=== PATIENT | female | born 1940 | race Caucasian/White ===

== ENCOUNTER 2019-11-14 19:13 | Emergency (ER) | payer OTHER ==
--- OUTSIDE RECORDS SUMMARY | 2019-11-14 21:26 | XMS REPORT | Clinical Summary ---
:1940 Author Organization [facility] Address [address] [place] [address] Care Team Providers Name Role Phone Merrill Tellez MD Primary Care Provider Allergies Active Allergy Reactions Severity Noted Date Comments Pneumococcal 23-Grazyna Ps Vaccine 01/22/2018 Severe local reaction. Sulfa (Sulfonamide Antibiotics) 6 Medications Medication Sig Dispensed Refills Start End Status Date Date aspirin 325 MG TAKE 1 TABLET 0 A ctive tablet BY MOUTH EVERY DAY WITH FOOD estradiol (ESTRACE) Insert 1 g into 42.5 g 11 05/16 Active 0.01 % (0.1 mg/gram) the vagina 0 021 vaginal every other creamIndications: day. Acute cystitis without hematuria fluticasone-umeclidi Inhale 1 puff 0 Active n-vilanter every morning. 100-62.5-25 mcg blister with device conjugated estrogens Insert 0.5 g 42.5 g 5 Active (PREMARIN) 0.625 into the vagina 0 mg/gram vaginal nightly as creamIndications: needed Overactive bladder (irritation). Premarin 0.625 mg/gram vaginal cream furosemide (LASIX) Take 1 tablet 90 tablet 1 Active 40 mg (40 mg total) 0 tabletIndications: by mouth daily. Benign essential HTN potassium chloride Take 1 tablet 90 tablet 1 Active (KLOR-CON) 10 MEQ CR (10 mEq total) 0 020 tabletIndications: by mouth daily Benign essential HTN for 90 days. sucralfate TAKE ONE (1) 360 tablet 1 Activ e (CARAFATE) 1 gram TABLET(S) BY 0 tabletIndications: MOUTH FOUR Gastroesophageal TIMES A DAY. reflux disease with esophagitis Myrbetriq 50 mg Take 1 tablet 90 tablet 1 Active tablet extended (50 mg total) 0 release 24 by mouth daily. hrIndications: Overactive bladder tiZANidine TAKE ONE (1) 100 tablet 1 Activ e (ZANAFLEX) 2 MG TABLET(S) BY 0 tabletIndications: MOUTH TWICE A Chronic right DAY NEEDED shoulder pain, Pain SHOULDER PAIN. in both lower extremities venlafaxine 225 MG Take 1 tablet 90 each 1 Active tablet extended (225 mg total) 0 release 24hr 24 hr by mouth daily. tabletIndications: Adjustment reaction, depressive, brief metoprolol tartrate TAKE ONE (1) 180 tablet 1 Active (LOPRESSOR) 25 mg TABLET(S) BY 0 tabletIndications: MOUTH TWICE A Benign essential HTN DAY. rosuvastatin TAKE ONE (1) 30 tablet 1 Acti ve (CRESTOR) 10 mg TABLET(S) BY 0 tabletIndications: MOUTH ONCE A Multiple-type DAY. hyperlipidemia levothyroxine TAKE ONE (1) 60 tablet 0 Act al (SYNTHROID) 50 mcg TABLET(S) BY 0 tabletIndications: MOUTH EVERY Acquired MORNING. hypothyroidism pantoprazole TAKE ONE (1) 60 tablet 5 Acti ve (PROTONIX) 40 MG EC TABLET(S) BY 0 tabletIndications: MOUTH ONCE A Gastroesophageal DAY. reflux disease with esophagitis conjugated estrogens Insert into the 42.5 g 11 07/07 Discontinued (PREMARIN) vaginal vagina daily. 6 020 (Reorder) cream Premarin 0.625 mg/gram vaginal cream tiotropium bromide Inhale. 0 D iscontinued (SPIRIVA RESPIMAT) 020 ( Therapy 2.5 mcg/actuation co mpleted) mist metoprolol tartrate TAKE ONE (1) 180 tablet 1 Discontinued (LOPRESSOR) 25 mg TABLET(S) BY 7 019 (Reorder) tabletIndications: MOUTH TWICE A Benign essential HTN DAY. rosuvastatin TAKE ONE (1) 30 tablet 0 09/20/201 01/22/2 Disc ontinued (CRESTOR) 10 MG TABLET(S) BY 7 020 ( Med List tablet MOUTH ONCE A Cleanup ) DAY. sucralfate TAKE ONE (1) 360 tablet 1 Disco ntinued (CARAFATE) 1 gram TABLET(S) BY 7 020 (Med List tablet MOUTH FOUR Cleanup) TIMES A DAY. fluticasone-vilanter Inhale 1 28 each 5 Discontinued ol (BREO ELLIPTA) inhalations 7 020 (Therapy 100-25 mcg/dose once daily. co mpleted) blister with device powder for inhalationIndication s: Bronchitis, mucopurulent recurrent (HCC) MYRBETRIQ 50 mg TAKE ONE (1) 30 tablet 5 D iscontinued tablet extended TABLET(S) BY 8 019 ( Reorder) release 24 MOUTH ONCE A hrIndications: DAY. Overactive bladder umeclidinium Inhale. 0 Discont inued (INCRUSE ELLIPTA) 020 (T herapy 62.5 mcg/actuation c ompleted) blister with device KLOR-CON 10 10 mEq TAKE ONE (1) 30 tablet 5 Discontinued CR tablet TABLET(S) BY 8 019 (Reorde r) MOUTH ONCE A DAY. metoprolol tartrate TAKE ONE (1) 60 tablet 3 Discontinued (LOPRESSOR) 25 mg TABLET(S) BY 9 019 (Med List tablet MOUTH TWICE A Cleanu p) DAY. venlafaxine 225 MG TAKE ONE (1) 30 each 5 Discontinued tablet extended TABLET(S) BY 9 020 release 24hr 24 hr MOUTH ONCE A tabletIndications: DAY. Adjustment reaction, depressive, brief pantoprazole TAKE ONE (1) 30 tablet 3 Disc ontinued (PROTONIX) 40 MG EC TABLET(S) BY 9 019 (Reorder) tablet MOUTH ONCE A DAY. levothyroxine TAKE ONE (1) 30 tablet 3 Dis continued (SYNTHROID, LEVOXYL) TABLET(S) BY 9 019 (Reorder) 50 mcg MOUTH EVERY tabletIndications: MORNING. Acquired hypothyroidism furosemide (LASIX) TAKE ONE (1) 30 tablet 3 Discontinued 40 mg tablet TABLET(S) BY 9 019 (Reo rder) MOUTH ONCE A DAY. metoprolol tartrate TAKE ONE (1) 60 tablet 3 Discontinued (LOPRESSOR) 25 mg TABLET(S) BY 019 (Reorder) tablet MOUTH TWICE A DAY. triamcinolone Apply topically 30 g 3 (KENALOG) 0.1 % 2 (two) times a ointment day. Prn itch or rash. potassium chloride TAKE ONE (1) 30 tablet 3 Discontinued (KLOR-CON) 10 MEQ CR TABLET(S) BY tablet MOUTH ONCE A DAY. venlafaxine 225 MG TAKE ONE (1) 30 each 3 Discontinued tablet extended TABLET(S) BY 019 ( Med List release 24hr 24 hr MOUTH ONCE A Cleanup) tabletIndications: DAY. Adjustment reaction, depressive, brief tiZANidine TAKE ONE (1) 50 tablet 5 Discon tinued (ZANAFLEX) 2 MG TABLET(S) BY ( Reorder) tabletIndications: MOUTH TWICE A Chronic right DAY NEEDED shoulder pain, Pain SHOULDER PAIN. in both lower extremities rosuvastatin TAKE ONE (1) 30 tablet 3 Disc ontinued (CRESTOR) 10 MG TABLET(S) BY 020 tabletIndications: MOUTH ONCE A Multiple-type DAY. hyperlipidemia rosuvastatin TAKE ONE (1) 30 tablet 2 Disc ontinued (CRESTOR) 10 MG TABLET(S) BY 019 ( Med List tabletIndications: MOUTH ONCE A Cleanup) Multiple-type DAY. hyperlipidemia pantoprazole TAKE 1 TABLET 30 tablet 0 Dis continued (PROTONIX) 40 MG EC BY MOUTH EVERY (Duplicate tablet DAY order) levothyroxine TAKE 1 TABLET 30 tablet 0 Di scontinued (SYNTHROID, LEVOXYL) IN THE MORNING 9 020 (Med List 50 mcg Cleanup) tabletIndications: Acquired hypothyroidism metoprolol tartrate TAKE 1 TABLET 60 tablet 0 Discontinued (LOPRESSOR) 25 mg BY MOUTH TWICE 9 019 (Med List tablet A DAY Cleanup) furosemide (LASIX) TAKE ONE (1) 90 tablet 2 Discontinued 40 mg tablet TABLET(S) BY 9 020 (Reo rder) MOUTH ONCE A DAY. MYRBETRIQ 50 mg TAKE ONE (1) 90 tablet 1 D iscontinued tablet extended TABLET(S) BY 9 020 release 24 MOUTH ONCE A hrIndications: DAY. Overactive bladder metoprolol tartrate TAKE ONE (1) 180 tablet 1 Discontinued (LOPRESSOR) 25 mg TABLET(S) BY 9 020 (Reorder) tabletIndications: MOUTH TWICE A Benign essential HTN DAY. acetaminophen-codein Take 1 tablet 50 tablet 0 01/17 e (TYLENOL WITH by mouth every 9 019 CODEINE #3) 300-30 4 (four) hours mg per as needed for tabletIndications: moderate pain Orbital fracture, for up to 30 sequela days. sucralfate TAKE ONE (1) 120 tablet 1 Disco ntinued (CARAFATE) 1 gram TABLET(S) BY 9 020 tablet MOUTH FOUR TIMES A DAY. pantoprazole TAKE ONE (1) 30 tablet 1 Disc ontinued (PROTONIX) 40 MG EC TABLET(S) BY 9 019 (Reorder) tablet MOUTH ONCE A DAY. levothyroxine TAKE ONE (1) 30 tablet 1 Dis continued (SYNTHROID, LEVOXYL) TABLET(S) BY 9 019 (Reorder) 50 mcg MOUTH EVERY tabletIndications: MORNING. Acquired hypothyroidism traMADol (ULTRAM) 50 TAKE ONE (1) 30 tablet 2 mg tablet TABLET(S) BY 9 019 MOUTH ONCE A DAY NEEDED FOR MODERATE PAIN OR SEVERE PAIN FOR UP TO 30 DAYS. potassium chloride TAKE ONE (1) 30 tablet 4 Discontinued (KLOR-CON) 10 MEQ CR TABLET(S) BY 9 020 (Med List tablet MOUTH ONCE A Cleanup ) DAY. levothyroxine TAKE ONE (1) 60 tablet 0 Dis continued (SYNTHROID) 50 mcg TABLET(S) BY 9 020 tabletIndications: MOUTH EVERY Acquired MORNING. hypothyroidism pantoprazole TAKE ONE (1) 60 tablet 0 Disc ontinued (PROTONIX) 40 MG EC TABLET(S) BY 9 020 (Reorder) tablet MOUTH ONCE A DAY. cephalexin (KEFLEX) Take 500 mg by 0 09/04 Discontinued 500 MG capsule mouth 4 (four) 020 times a day. metoprolol tartrate TAKE ONE (1) 180 tablet 1 Discontinued (LOPRESSOR) 25 mg TABLET(S) BY 0 020 (Reorder) tabletIndications: MOUTH TWICE A Benign essential HTN DAY. acetaminophen-codein Take 1 tablet 20 tablet 0 06/15 e (TYLENOL WITH by mouth every 0 020 CODEINE #3) 300-30 4 (four) hours mg per as needed for tabletIndications: moderate pain chronic pain for up to 10 days .chronic pain. rosuvastatin TAKE ONE (1) 30 tablet 1 Disc ontinued (CRESTOR) 10 MG TABLET(S) BY 0 020 tabletIndications: MOUTH ONCE A Multiple-type DAY. hyperlipidemia pantoprazole TAKE ONE (1) 60 tablet 0 Disc ontinued (PROTONIX) 40 MG EC TABLET(S) BY 0 020 tablet MOUTH ONCE A DAY. levothyroxine TAKE ONE (1) 60 tablet 0 Dis continued (SYNTHROID) 50 mcg TABLET(S) BY 0 020 tabletIndications: MOUTH EVERY Acquired MORNING. hypothyroidism sucralfate TAKE ONE (1) 120 tablet 1 Disco ntinued (CARAFATE) 1 gram TABLET(S) BY 0 020 (Reorder) tablet MOUTH FOUR TIMES A DAY. venlafaxine 225 MG TAKE ONE (1) 30 each 4 Discontinued tablet extended TABLET(S) BY 0 020 ( Reorder) release 24hr 24 hr MOUTH ONCE A tabletIndications: DAY. Adjustment reaction, depressive, brief rosuvastatin TAKE ONE (1) 30 tablet 0 Disc ontinued (CRESTOR) 10 MG TABLET(S) BY 0 020 tabletIndications: MOUTH ONCE A Multiple-type DAY. hyperlipidemia MYRBETRIQ 50 mg TAKE ONE (1) 30 tablet 0 D iscontinued tablet extended TABLET(S) BY 0 020 release 24 MOUTH ONCE A hrIndications: DAY. Overactive bladder pantoprazole TAKE ONE (1) 60 tablet 0 Disc ontinued (PROTONIX) 40 MG EC TABLET(S) BY 0 020 (Duplicate tablet MOUTH ONCE A order) DAY. levothyroxine TAKE ONE (1) 60 tablet 0 Dis continued (SYNTHROID) 50 mcg TABLET(S) BY 0 020 (Reorder) tabletIndications: MOUTH EVERY Acquired MORNING. hypothyroidism potassium chloride TAKE ONE (1) 30 tablet 3 Discontinued (KLOR-CON) 10 MEQ CR TABLET(S) BY 0 020 (Reorder) tablet MOUTH ONCE A DAY. rosuvastatin TAKE ONE (1) 30 tablet 0 Disc ontinued (CRESTOR) 10 MG TABLET(S) BY 0 020 ( Reorder) tabletIndications: MOUTH ONCE A Multiple-type DAY. hyperlipidemia Myrbetriq 50 mg TAKE ONE (1) 30 tablet 0 D iscontinued tablet extended TABLET(S) BY 0 020 ( Reorder) release 24 MOUTH ONCE A hrIndications: DAY. Overactive bladder pantoprazole Take 1 tablet 180 tablet 1 Di scontinued (PROTONIX) 40 MG EC (40 mg total) 0 020 tabletIndications: by mouth daily. Gastroesophageal reflux disease with esophagitis rosuvastatin Take 1 tablet 90 tablet 0 Dis continued (CRESTOR) 10 MG (10 mg total) 0 020 (Reorder) tabletIndications: by mouth daily. Multiple-type hyperlipidemia levothyroxine Take 1 tablet 90 tablet 1 Di scontinued (SYNTHROID) 50 mcg (50 mcg total) 0 020 tabletIndications: by mouth every Acquired morning for 90 hypothyroidism days. Active Problems Problem Noted Date GERD (gastroesophageal reflux disease) 09/18/2015 Benign essential HTN 09/18/2015 Overactive bladder 09/18/2015 Chest pain 09/18/2015 Shortness of breath 09/18/2015 Gastric catarrh 09/18/2015 Hiatal hernia 09/18/2015 Hypothyroidism 09/18/2015 Memory impairment 09/18/2015 Mild memory disturbance 09/18/2015 Peripheral blood vessel disorder 09/18/2015 Syncope and collapse 09/18/2015 Multiple-type hyperlipidemia 09/18/2015 Urinary tract infection 09/18/2015 Encounters Date Type Specialty Care Team Description 11/14/2019 Telephone Family Medicine Rocio Tellez MD 11/11/2019 Telephone Internal Medicine Rocio Tellez MD 11/11/2019 Travel 10/31/2019 Lab Lab [place], Acute cystitis without hematuria; Rocio Momin MD Hypothyroidism (acquired); Multiple-type h yperlipidemia; Encounter for l rose marie-term (current) use of medications 10/31/2019 Travel 10/21/2019 Refill Family Medicine [place], Acquired hyp othyroidism; Rocio Momin MD Gastroesophage al reflux disease with esophagitis 10/04/2019 Refill Internal Medicine [place], Multiple-t ype Rocio Momin MD hyperlipidemia 09/05/2019 Telephone Consult Internal Medicine [place], Cortes oesophageal reflux disease with esophagitis (Primary Dx); Rocio Momin MD Overactive brittney dder; Multiple-type h yperlipidemia; Chronic right s houlder pain; Pain in both lo wer extremities; Acquired hypoth yroidism; Adjustment reac tion, depressive, brief; Benign essentia l HTN 09/05/2019 Telephone Family Medicine Rocio Tellez MD 09/01/2019 Refill Internal Medicine [place] Multiple-t ype hyperlipidemia; Rocio Momin MD Overactive brittney dder 08/19/2019 Telephone Family Medicine Rocio Tellez MD 08/17/2019 Telephone Family Medicine Rocio Tellez MD 08/09/2019 Refill Family Medicine [place], Acquired hyp othyroidism Rocio Momin MD 08/01/2019 Refill Internal Medicine [place], Adjustment reaction, depressive, brief; Rocio Momin MD Multiple-type hyperlipidemia; Overactive blad ojel 07/06/2019 Refill Family Rocio Mueller MD 06/20/2019 Refill Family Nikki Tellez, Acquired hyp othyroidism Rocio Momin MD 06/18/2019 Orders Only Internal Medicine ProviderPriscilla MD 06/14/2019 Refill Family Rocio Mueller MD 06/07/2019 Refill Internal Medicine [place], Multiple-t ype Rocio Momin MD hyperlipidemia 06/05/2019 Office Visit Internal Medicine [place], Acute cyst itis without hematuria (Primary Dx); Rocio Momin MD Benign essenti al HTN; Hypothyroidism (acquired); Chronic right s houlder pain; Multiple-type h yperlipidemia; Encounter for l rose marie-term (current) use of medications; Screen for colo n cancer 04/17/2019 Refill Family Nikki Tellez, Acquired hyp othyroidism Rocio Momin MD 04/01/2019 Refill Internal Medicine Rocio Tellez MD 03/06/2019 Office Visit Neurology Cole Allison MD Carpal tunnel syndrome of right wrist (Primary Dx); Cervical radicu lopathy; Cervical spinal stenosis; KINSEY (obstructiv e sleep apnea); Memory loss 02/11/2019 Refill Family Rocio Mueller MD 02/10/2019 Refill Family Nikki Tellez Acquired hyp othyroidism Rocio Momin MD 02/04/2019 Procedure visit Neurology Cole Allison MD Cervical ra diculopathy (Primary Dx); Polyneuropathy associated with underlying disease (HCC); Cervical spinal stenosis; Chronic right s houlder pain; Carpal tunnel s yndrome of right wrist; Lumbar radiculo yaz 01/07/2019 Office Visit Neurology [place], Recurrent falls (Primary Dx); Rocio Momin MD Gait instability; Cole Allison MD Polyneuropathy associated with underlying disease (HCC); Cervical spinal stenosis 01/01/2019 Telephone Internal Medicine Rocio Tellez MD 12/18/2018 Office Visit Internal Medicine [place], Open fract ure of nasal bone, sequela (Primary Dx); Rocio Momin MD Overactive brittney dder; Orbital fractur e, sequela (HCC); Recurrent falls ; Gait instabilit y; Benign essentia l HTN 12/18/2018 Telephone Family Medicine Rocio Tellez MD 12/13/2018 Refill Internal Medicine Rocio Tellez MD 12/10/2018 Telephone Family Medicine Rocio Tellez MD 12/10/2018 Telephone Internal Medicine Jessi Montana MD 12/09/2018 Refill Internal Medicine [place], Acquired h ypothyroidism Rocio Momin MD 12/04/2018 Refill Internal Medicine [place], Multiple-t ype Rocio Momin MD hyperlipidemia 11/13/2018 Orders Only Internal Medicine ProviderPriscilla MD after 11/13/2018 Immunizations Name Administration Dates Next Due FLUZONE HIGH-DOSE PF 01/18/2018, 02/16/2016 Influenza, Unspecified 04/28/2019, 02/09/2017 Pneumococcal Conjugate 13-Valent 04/17/2017, 03/14/2016 Pneumococcal Polysaccharide 01/18/2018 Td, Unspecified 11/17/2013 Zoster 02/12/2013 Family History Medical History Relation Name Comments Diabetes Child Seizures Child Thyroid disease Child thyroiditis Cancer Father ENT to lungs, he veronica smoker Dementia Mother late onset; of natural causes/old age Relation Name Status Comments Child Father Mother Social History Tobacco Use Types Packs/Day Years Used Date Former Smoker Quit: 05/15/18 84 Smokeless Tobacco: Never Used Tobacco Cessation: Counseling Given: No Comments: Committed to continued cessati on. Alcohol Use Drinks/Week oz/Week Comments No Social Isolation Answer Date Recorded In a typical week, how many times do you talk on the phone N ot asked with family, friends, or neighbors? How often do you get together with friends or relatives? Not asked How often do you attend taoist or yarsani services? Not as ked Do you belong to any clubs or organizations such as taoist N ot asked groups, unions, fraternal or athletic groups, or school groups? How often do you attend meetings of the clubs or Not asked organizations you belong to? Are you now , , , , never Wid owed 04/25/2018 or living with a partner? Transportation Needs Answer Date Recorded In the past 12 months, has lack of transportation kept you f rom No 04/25/2018 medical appointments or from getting medications? In the past 12 months, has lack of transportation kept you f rom No 04/25/2018 meetings, work, or getting things needed for daily living? Sex Assigned at Date Recorded Not on file Job Start Date Occupation Industry Not on file Not on file Not on file Travel History Travel Start Travel End No recent travel history available. COVID-19 Exposure Response Date Recorded In the last month, have you been in contact with No / Unsure 11/11/2019 9:36 AM CDT someone who was confirmed or suspected to have Coronavirus / COVID-19? 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 Inhaled Oxygen Concentration - - Weight 81.2 kg (179 lb) 09/05/2019 2:13 PM CDT Height 160 cm (5' 3") 09/05/2019 2:13 PM CDT Body Mass Index 31.71 09/05/2019 2:13 PM CDT Plan of Treatment Date Type Specialty Care Team Description 12/05/2019 Office Visit Internal Medicine Amber Tellez MD [id number] [phone] Health Maintenance Due Date Last Done Comments SHINGLES VACCINES (#2) 04/14/2013 02/12/2013 INFLUENZA VACCINE 12/14/2019 04/28/2019, 04/28/2019, 2017, Additional history exists 65+ PNEUMOCOCCAL VACCINE Completed 01/18/2018, 04/17/2017, 03/14/2016 Procedures Procedure Name Priority Date/Time Associated Diagnosis Comme nts URINALYSIS, AUTOMATED Routine 10/31/2019 10:28 Acute cystitis without Results for this WITH MICROSCOPY AM CDT hematuria procedure ar e in the results section. T4, FREE Routine 10/31/2019 10:28 Hypothyroidism Results f or this AM CDT (acquired) procedure are i n the results section. THYROID STIMULATING Routine 10/31/2019 10:28 Hypothyroidism Re sults for this HORMONE AM CDT (acquired) procedure are i n the results section. CBC WITH PLATELET AND Routine 10/31/2019 10:28 Acute cystitis without Results for this DIFFERENTIAL AM CDT hematuria procedure are i n the results section. COMPREHENSIVE Routine 10/31/2019 10:28 Multiple-type Results f or this METABOLIC PANEL AM CDT hyperlipidemia procedure are in the results section. HEMOGLOBIN A1C Routine 10/31/2019 10:28 Encounter for Results for this AM CDT long-term (current) procedur e are in use of medications the resul ts section. LIPID PANEL Routine 10/31/2019 10:28 Multiple-type Results fo r this AM CDT hyperlipidemia procedure are in the results section. URINE CULTURE Routine 10/31/2019 10:28 Acute cystitis without Results for this AM CDT hematuria procedure are i n the results section. CONSULT GYNECOLOGY Routine 06/18/2019 MRI CERVICAL SPINE WO Routine 01/17/2019 2:44 Recurrent falls Results for this CONTRAST PM CDT Cervical spinal procedure ar e in stenosis the results section. IP CONSULT TO Routine 11/13/2018 PULMONOLOGY after 11/13/2018 Results Urinalysis, automated with microscopy (10/31/2019 10:28 AM CDT) Color, UA YELLOW YELLOW [facility] [place] Appearance CLEAR CLEAR [facility] [place] Specific gravity, 1.019 1.001 - 1.035 [facility] urine [place] pH, urine < OR = 5.0 5.0 - 8.0 [facility] [place] Glucose, urine NEGATIVE NEGATIVE [facility] [place] Bilirubin, UA NEGATIVE NEGATIVE [facility] [place] Ketones, UA NEGATIVE NEGATIVE [facility] [place] Occult blood, urine NEGATIVE NEGATIVE [facility] [place] Protein, UA NEGATIVE NEGATIVE [facility] [place] Nitrite, UA NEGATIVE NEGATIVE [facility] [place] Leukocyte esterase, TRACE (A) NEGATIVE [facility] UA [place] WBC, UA 0-5 < OR = 5 /HPF [facility] [place] RBC, UA NONE SEEN < OR = 2 /HPF [facility] [place] Squamous epithelial NONE SEEN < OR = 5 /HPF [facility] cells, UA [place] Bacteria, UA NONE SEEN NONE SEEN /HPF [facility] [place] Hyaline casts, UA NONE SEEN NONE SEEN /LPF [facility] [place] Specimen Urine Narrative Performed At FASTING: UNKNOWN [facility] Comment Performing Organization Information: Site ID: [id number] Name: Basilia Guzman Address: [address] [place] [phone] Director: Abad Elizalde Performing Organization Address City/State/Zipcode Phone Number [facility] [address] [place] [phone] CBC with platelet and differential (10/31/2019 10:28 AM CDT) WBC 6.4 3.8 - 10.8 [facility] Thousand/uL [place] RBC 4.53 3.80 - 5.10 [facility] Million/uL [place] HGB 12.7 11.7 - 15.5 [facility] g/dL [place] HCT 40.3 35.0 - 45.0 % [facility] [place] MCV 89.0 80.0 - 100.0 fL [facility] [place] MCH 28.0 27.0 - 33.0 pg [facility] [place] MCHC 31.5 (L) 32.0 - 36.0 [facility] g/dL [place] RDW 14.3 11.0 - 15.0 % [facility] [place] Platelet count 296 140 - 400 [facility] Thousand/uL [place] MPV 12.0 7.5 - 12.5 fL [facility] [place] Neutrophils, absolute 3,565 1,500 - 7,800 [facility] cells/uL [place] Lymphocytes, absolute 1,882 850 - 3,900 [facility] cells/uL [place] Monocytes, absolute 595 200 - 950 [facility] cells/uL [place] Eosinophils, absolute 288 15 - 500 [facility] cells/uL [place] Basophils, absolute 70 0 - 200 [facility] cells/uL [place] Neutrophils 55.7 % [facility] [place] Lymphocytes 29.4 % [facility] [place] Monocytes 9.3 % [facility] [place] Eosinophils 4.5 % [facility] [place] Basophils + RC 1.1 % [facility] [place] Specimen Narrative Performed At FASTING: UNKNOWN [facility] Comment Performing Organization Information: Site ID: [id number] Name: Basilia Guzman Address: [address] [place] [id number] Director: Abad Elizalde Performing Organization Address City/State/Zipcode Phone Number [facility] [address] [place] [address] Urine culture (10/31/2019 10:28 AM CDT) Pathologist Sig nature Urine culture SEE NOTE [facility] Comment: [place] CULTURE, URINE, ROUTINE Micro Number: [id number] Test Status: Final Specimen Source: URINE Specimen Quality: Adequate Result: No Growth Specimen Narrative Performed At FASTING: UNKNOWN [facility] Comment Performing Organization Information: Site ID: [id number] Name: [facility] Address: [address] [place], [place] [id number] Director: Abad Elizalde Performing Organization Address [facility] Phone Number [facility] [place] [address] Thyroid stimulating hormone (10/31/2019 10:28 AM CDT) Pathologist Sig nature TSH 2.55 0.40 - 4.50 mIU/L [facility] Specimen Narrative Performed At FASTING: UNKNOWN [facility] Comment Performing Organization Information: Site ID: [facility] Name: [facility] Address: [address] [place] [phone] Director: Abad Elizalde Performing Organization Address [facility] Phone Number [facility] [employer] [facility] [place] [address] T4, free (10/31/2019 10:28 AM CDT) Pathologist Sig nature T4, free 1.1 0.8 - 1.8 ng/dL [facility] [place] Specimen Narrative Performed At FASTING: UNKNOWN [facility] Comment Performing Organization Information: Site ID: [facility] Name: [facility] Address: [address] [place], [place] [phone] Director: Abad Elizalde Performing Organization Address [facility] Phone Number [facility] [place] [address] Hemoglobin A1c (10/31/2019 10:28 AM CDT) Hemoglobin A1C 6.0 (H) <5.7 % of [facility] Comment: total Hgb SALDANA For someone without known diabetes, a hemoglobin A1c value between 5.7% and 6.4% is consistent with prediabetes and should be confirmed with a follow-up test. For someone with known diabetes, a value <7% indicates that their diabetes is well controlled. A1c targets should be individualized based on duration of diabetes, age, comorbid conditions, and other considerations. This assay result is consistent with an increased risk of diabetes. Currently, no consensus exists regarding use of hemoglobin A1c for diagnosis of diabetes for children. Specimen Narrative Performed At FASTING: UNKNOWN [facility] Comment Performing Organization Information: Site ID: E[facility]ERIO Name: [facility] Address: [address] [place] [id number] Director: Abad Elizalde Performing Organization Address [facility] [place] [address] Lipid panel (10/31/2019 10:28 AM CDT) [facility] Cholesterol, total 144 <200 mg/dL [facility] HDL cholesterol 55 > OR = 50 [facility] mg/dL [place] Triglycerides 149 <150 mg/dL [facility] LDL cholesterol 66 mg/dL (calc) [facility] calculated Comment: [place] Reference range: <100 Desirable range <100 mg/dL for primary prevention; <70 mg/dL for patients with CHD or diabetic patients with > or = 2 CHD risk factors. LDL-C is now calculated using the Romeo-Jp calculation, which is a validated novel method providi ng better accuracy than the Friedewald equation in the estimation of LDL-C. Romeo SS et al. [place]. 2013;310(19): 0476-8886 (http://education.[employer]/faq/KBV354) Cholesterol/HDL 2.6 <5.0 (calc) [facility] Non-HDL cholesterol 89 <130 mg/dL [facility] Comment: (calc) [place] For patients with diabetes plus 1 major ASCVD risk factor, treating to a non-HDL-C goal of <100 mg/dL (LDL-C of <70 mg/dL) is considered a therapeutic option. Specimen Narrative Performed At FASTING: UNKNOWN [facility] Comment Performing Organization Information: Site ID: E[facility]IO Name: [facility] Address: [address] [place] [phone] Director: Abad Elizalde Performing Organization Address [facility] Phone Number [facility] [place] [phone] Comprehensive metabolic panel (10/31/2019 10:28 AM CDT) Glucose 104 (H) 65 - 99 [facility] Comment: mg/dL [facility] Fasting reference interval For someone without known diabetes, a glucose value between 100 and 125 mg/dL is consistent with prediabetes and should be confirmed with a follow-up test. BUN 21 7 - 25 mg/dL [facility] [place] Creatinine 0.86 0.60 - 0.88 [facility] Comment: mg/dL [facility] For patients >49 years of age, the reference limit for Creatinine is approximately 13% higher for people identified as -Danish. EGFR Non-Afr. 64 > OR = 60 [facility] Danish mL/min/1.73m [place] 2 EGFR 74 > OR = 60 [facility] Danish mL/min/1.73m [facility] 2 BUN/creatinine NOT APPLICABLE 6 - 22 [facility] ratio (calc) [facility] Sodium 141 135 - 146 [facility] mmol/L [place] Potassium 4.3 3.5 - 5.3 [facility] mmol/L [facility] Chloride 104 98 - 110 [facility] mmol/L [place] CO2 26 20 - 32 [facility] mmol/L [place] Calcium 9.2 8.6 - 10.4 [facility] mg/dL [place] Protein 6.8 6.1 - 8.1 [facility] g/dL [place] Albumin, S 4.0 3.6 - 5.1 [facility] g/dL [place] Globulin, total 2.8 1.9 - 3.7 [facility] g/dL (calc) [facility] Albumin/globulin 1.4 1.0 - 2.5 [facility] ratio (calc) [facility] Total bilirubin 0.4 0.2 - 1.2 [facility] mg/dL [place] Alkaline 63 37 - 153 U/L [facility] phosphatase [facility] AST 20 10 - 35 U/L [facility] [place] ALT 19 6 - 29 U/L [facility] [place] Specimen Narrative Performed At FASTING: UNKNOWN [facility] Comment Performing Organization Information: Site ID: RGA Name: [facility] Address: [address] [place] [phone] Director: Abad Elizalde Performing Organization Address City/State/Zipcode Phone Number [facility] [address] [address] Consult Gynecology (06/18/2019) Narrative Performed At This result has an attachment that is no t available. MRI Cervical Spine Wo Contrast (01/17/2019 2:44 PM CDT) Specimen Narrative Performed At This result has an attachment that is no t available. EXAMINATION: MRI CERVICAL SPINE WO CONTRAST HM [facility] CLINICAL HISTORY: R29.6 Repeated falls, M48.02 Spinal stenosis cervical region, numbness cervical radiculopathy neck pain COMPARISON: None TECHNIQUE: Multiplanar multisequence non contrast enhanced examination was performed of the cervical spine. FINDINGS: There is straightening of the cervical lordosis. The craniovertebral junction is unremark able. There is decreased T2 signal intensity in the cervical discs. There is no definite abnormal signal intensity within the cord although artifacts obscure some detail of the cord signal. C2-3: There is moderate posterior disc space narrowing. There is facet hypertrophy greater on the left. There is mild dorsal spondylosis and ligamentum flavum hypertrophy and mild narrowing of the AP dimension of the central subarachnoid space on the sagittal images. Motion artifact obscure s detail on the axial images. The axial T2 weighted images suggest there is no significant foramen stenosis. C3-4: There is mild anterolisthesis with mild posterior disc space narrowing. There is bulge or shallow protrusion indenting the subarachnoid space on the sagittal images. There is ligamentum flavum hyp ertrophy touching the posterior cord on the sagittal images. The sagittal images show mild t o moderate narrowing of the AP dimension of the central subarachnoid space. Artifacts obscure details on the axial images. The axial T2 weighted images suggest there could be prominent foramen stenosis versus artifact. C4-5: There is mild anterolisthesis with severe posterior disc space narrowing. There is uncovered disc and bulge or shallow protrusion touching the anterior cord. There is mild ligamentum flavum hypert rophy. There is mild narrowing of the AP dimension of the central subarachnoid space on the sagittal images. Artifacts obscure the axial images. The axial T2 weighted images suggest there could be severe foramen stenosis. C5-6: There is severe disc space narrowi ng with inward concavity of the endplates. There is dorsal spondylosis indenting the subarachnoid space. There is ligamentum flavum hypertrophy. The sagittal images suggest mild to moderate narrowing of the AP dimension of the central subarachnoid sp saqib. There is facet and uncovertebral joint hypertrophy with severe appearing left and moderate right foramen stenosis on the axial T2 images. C6-7: There is severe disc space narrowi ng with inward concavity of the endplates. The sagittal images show dorsal spondylosis and ligamentum flavum hypertrophy and mild to moderate narrowing of the AP dimension of the central subarachnoid space. The axial T2-weighted images suggest moderate left and mil d right foramen stenosis. C7-T1: There is no significant canal or foramen stenosis from hypertrophic change. There is mild dorsal spondylosis indenting the anterior subarachnoid space. Artifacts obscure the soft tissue struct ures in the neck and upper chest. No gross significant incidental thyroid gland mass is seen. The left vertebral artery is dominant. IMPRESSION: Motion artifact obscuring details especi ally on the axial images. There is narrowing of the subarachnoid space without definite cord compression. There is multilevel prominent foramen stenosis as described although artifacts obscure details of the foramen. If indicated further evaluated with a CT with or without a myelogram can be performed. [facility]-[id number] Procedure Note Hm Interface, Radiology Results Incoming - 01/17/2019 4:26 PM CDT EXAMINATION: MRI CERVICAL SPINE WO CONTRAST CLINICAL HISTORY: R29.6 Repeated falls, M48.02 Spinal stenosis cervical region, numbness cervical radiculopathy neck pain COMPARISON: None TECHNIQUE: Multiplanar multisequence non contrast enhanced examination was performed of the cervical spine. FINDINGS: There is straightening of the cervical l ordosis. The craniovertebral junction is unremark able. There is decreased T2 signal intensity in the cervical discs. There is no definite abnormal signal intensity within the cord although artifacts obscure some detail of the cord signal. C2-3: There is moderate posterior disc space narrowing. There is facet hypertrophy greater on the left. There is mild dorsal spondylosis and ligamentum flavum hypertrophy and mild narrowing of the AP dimension of the central subarachnoid space on the sagittal images. Motion artifact obscure s detail on the axial images. The axial T2 weighted images suggest there is no significant foramen stenosis. C3-4: There is mild anterolisthesis with mild posterior disc space narrowing. There is bulge or shallow protrusion indenting the subarachnoid space on the sagittal images. There is ligamentum flavum hypertrophy touching the posterior cord on the sagit nena images. The sagittal images show mild t o moderate narrowing of the AP dimension of the central subarachnoid space. Artifacts obscure details on the axial images. The axial T2 weighted images suggest there could be prominent foramen stenosis versus artifact. C4-5: There is mild anterolisthesis with severe posterior disc space narrowing. There is uncovered disc and bulge or shallow protrusion touching the anterior cord. There is mild ligamentum flavum hypertrophy. There is mild narrowing of the AP dimens ion of the central subarachnoid space on the sagittal images. Artifacts obscure the axial images. The axial T2 weighted images suggest there could be severe foramen stenosis. C5-6: There is severe disc space narrowi ng with inward concavity of the endplates. There is dorsal spondylosis indenting the subarachnoid space. There is ligamentum flavum hypertrophy. The sagittal images suggest mild to moderate narrowing of the AP dimension of the central subarachnoid sp saqib. There is facet and uncovertebral joint hypertrophy with severe appearing left and moderate right foramen stenosis on the axial T2 images. C6-7: There is severe disc space narrowi ng with inward concavity of the endplates. The sagittal images show dorsal spondylosis and ligamentum flavum hypertrophy and mild to moderate narrowing of the AP dimension of the central subarachnoid space. The axial T2-weighted images suggest moderat e left and mild right foramen stenosis. C7-T1: There is no significant canal or foramen stenosis from hypertrophic change. There is mild dorsal spondylosis indenting the anterior subarachnoid space. Artifacts obscure the soft tissue struct ures in the neck and upper chest. No gross significant incidental thyroid gland mass is seen. The left vertebral artery is dominant. IMPRESSION: Motion artifact obscuring details especi ally on the axial images. There is narrowing of the subarachnoid space without definite cord compression. There is multilevel prominent foramen stenosis as described although artifacts obscure details of the foramen. If indicated further evaluated with a CT with or without a myelogram can be performed. [facility]-[id number] Performing Organization Address City/State/Zipcode Phone Number [place] [address] [place] [address] Consult Pulmonary (11/13/2018) Narrative Performed At This result has an attachment that is no t available. 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
--- OUTSIDE RECORDS SUMMARY | 2019-11-14 21:27 | XMS REPORT | Continuity of Care Document ---
:1940 Author Organization [employer] Care Team Providers Name Role Phone [employer] Unavailable Un available Problems Problem Status Onset Classification Date Comments Sourc e Date Reported S/P Active [facility] FALL-ORBITAL 9 Medical FLOOR FX Center Medications Medication Details Route Status Patient Ordering Order Source Instructions Provider Date Acetaminophen Notes: [place] not exceed 019 [place] 4 gm/day. Center (Same as: Tylenol) Bacitracin 0.5 1 appl, Active [facility] UNT/MG Topical TOP, TID, 019 Medical Ointment Apply a Center thin layer to affected area, X 7 day, # 30 gm, 0 Refill(s) [place] Nasal 1 appl, Active [facility] Moisturizer TOP, BID, 019 Medical topical gel PRN as Center needed for dry skin, # 5 gm, 0 Refill(s) Morphine 2 mg, Inactive [facility] Route: IVP, 019 Medical ONCE, Center Dosing Weight 77.273, kg, Priority: STAT, Start date: 12/07/18 5:51:00 CDT, Stop date: 12/07/18 5:51:00 CDT Allergies, Adverse Reactions, Alerts Substance Category Reaction Severity Reaction Status Date Comments S ource type Reported No Known Assertion Drug [place] Medication allergy Medic al Allergies Center Immunizations No Data Provided for This Section Results Order Name Results Value Reference Date Interpretation Comments [place] r[place] Range BLOOD BANK ABO/Rh A POS 12/07 [facility] RESULTS /2018 [facility] Center BLOOD BANK Antibody Negative 12/07 [facility] RESULTS Scrn (12/07/18 1:39 AM) /2018 Medica l Center CARDIAC Troponin-I <0.02 0.00 - 12/07 [facility] ENZYMES 0.40 /[address] [facility] ELECTROLYTES AGAP 11.3 10.0 - 12/07 [place] 20.[address] [facility] ELECTROLYTES Creatinine 0.92 0.50 - 12/07 [facility] [place] Lvl 1.[address] [facility] ELECTROLYTES Sodium Lvl 138 135 - 145 12/07 [place] [facility] ELECTROLYTES BUN 21 7 - 22 12/[address] [facility] ELECTROLYTES Potassium 4.3 3.5 - 5.1 12/07 [place] L[place] [facility] ELECTROLYTES Chloride Lvl 105 95 - 109 12/[address] [place] [facility] ELECTROLYTES CO2 26 24 - 32 12/[address] [facility] ELECTROLYTES Calcium Lvl 9.1 8.5 - 10.5 12/[address] [place] [facility] ELECTROLYTES eGFR 59 12/07 Result Comment: The Medical eGFR is Center calculated using the CKD-EPI formula. In most young, healthy individuals the eGFR will be >90 mL/min/1.73m2 . The eGFR declines with age. An eGFR of 60-89 may be normal in some populations, particularly the elderly, for whom the CKD-EPI formula has not been extensively validated. Use of the eGFR is not recommended in the following populations:< br/>
Kimberly viduals with unstable creatinine concentration s, including patients and those with serious co-morbid conditions.<b r/>
Patie nts with extremes in muscle mass or diet.

The data above are obtained from the National Kidney Disease Education Program (NKDEP) which additionally recommends that when the eGFR is used in patients with extremes of body mass index for purposes of drug dosing, the eGFR should be multiplied by the estimated BMI. ELECTROLYTES Glucose Lvl 130 70 - 99 12/[address] [facility] HEMATOLOGY Segs 77.4 45.0 - 12/07 [facility] 75.[address] [facility] HEMATOLOGY Lymphocytes 14.6 20.0 - 12/07 [place] 40.[address] [facility] HEMATOLOGY Basophils # 0.1 0.0 - 0.2 12/[address] [facility] HEMATOLOGY Eosinophils 0.1 0.0 - 0.5 12/07 [facility] HEMATOLOGY Monocytes # 0.7 0.0 - 0.8 [facility] HEMATOLOGY Eosinophils 1.3 0.0 - 4.0 [facility] HEMATOLOGY Monocytes 6.0 2.0 - 12.0 12/[address] [facility] HEMATOLOGY Neutrophils 8.9 1.5 - 8.1 12/07 [place] [facility] HEMATOLOGY Basophils 0.7 0.0 - 1.0 12/[address] [facility] HEMATOLOGY Lymphocytes 1.7 1.0 - 5.5 12/[address] [place] [facility] HEMATOLOGY Estimated % 0.0 0.0 - 7.5 12/07 [place] [facility] HEMATOLOGY G-value 8.7 5.0 - 11.6 12/07 Result Comment: Medical "Corrected Center Report was called to Chandrika Batista_at 12/07/2018 02:30__by stp__.Read Back OK." HEMATOLOGY Max 63 52 - 71 12/07 Result Comment: see [facility] HEMATOLOGY [place] 0.5 12/07 Result Comment: see [facility] HEMATOLOGY R-time Rapid 0.6 0.4 - 0.7 12/07 Result Comment: see [facility] HEMATOLOGY K-time Rapid 1.5 0.6 - 2.3 12/07 Result Comment: see [facility] HEMATOLOGY Angle Rapid 73 64 - 80 12/07 Result Comment: see [facility] HEMATOLOGY ACT (TEG) 105 86 - 118 12/07 Result Comment: Medical "Corrected Center Report was called to Chandrika Batista at 12/07/2018 02:24_by stp..Read Back OK." HEMATOLOGY PT 12.8 12.0 - 12/[address] [facility] HEMATOLOGY INR 0.98 0.85 - 12/[address] [facility] HEMATOLOGY Platelet 242 133 - 450 12/[address] [facility] HEMATOLOGY RDW 14.3 11.5 - 12/[address] [facility] HEMATOLOGY MCHC 33.4 32.0 - 12/[address] [facility] HEMATOLOGY MCH 29.8 27.0 - 12/[address] [facility] HEMATOLOGY MCV 89.0 80.0 - 12/[address] [facility] HEMATOLOGY Hct 37.5 36.0 - 12/07 [place] 48.[address] [facility] HEMATOLOGY RBC 4.21 4.20 - 12/07 [facility] 5.40 /[address] [facility] HEMATOLOGY Hgb 12.5 12.0 - 12/07 [facility] 16.[address] [facility] HEMATOLOGY WBC 11.5 3.7 - 10.4 12/07 [facility] [facility] HEMATOLOGY MPV 8.7 7.4 - 10.4 12/07 [facility] [facility] HEMATOLOGY PTT 29.9 22.9 - 12/07 [facility] 35.8 /[address] [facility] Pathology Reports No Data Provided for This Section Diagnostic Reports Report Value Date Source Brain-Outside EXAM: Brain-Outside Consult CT 12/07/2018 Efrem Vasquez [place] [facility] Consult CT DATE: 12/06/2018 20:44 CDT Center INDICATION: - fall COMPARISON: None TECHNIQUE: Routine axial ruby ges of the brain were obtained without contrast administration DISCUSSION: No acute intracranial hemorrhage, hydrocephalus or midline shift. Hypodensities in the suprate ntorial white matter consistent with small vessel disease. Process of the cerebral sulci due to volume loss. Comminuted displaced fractur es of the nasal bones, nasal septum and fracture of the right orbital floor. Laceration of the soft tissues in the frontal sc alp IMPRESSION: No acute intracranial abnormality. Facial bone fractures. Soft tissue injury. Brain-Outside EXAM: CT FACIAL BONES OUTSIDE CONSULTATION 12/07 [facility] Medical Consult CT DATE: 12/07/2018 1:45 CDT Center INDICATION: Second interpret ation of outside CT performed on trauma transfer patient. COMPARISON: None. TECHNIQUE: Axial and coronal images of the facial bones without contrast. Images are provided in only bone algorithm. IV contrast: None. [facility] * Comminuted nasal bone fracture. * Bony nasal septal fractures. * Inferior right orbital floor fracture leanna ing the infraorbital canal. * Hemorrhage within the rig ht maxillary antrum, right nasal cavity and posterior nasopharynx. DISCUSSION: A comminuted displaced fract ure seen in the nasal bones, with rotation of multiple fragments. The fracture involves the nasal process of the frontal bone, but does not breach the frontal sinuses. There is also involvement of the n emmanuelle septum, which shows about 4 mm displacement on coronal image 28. There is slight medial depression of the right medial orbital wall and the fracture propagates through t he right orbital floor adjac ent to the V2 neural foramen which may also be involved. Right maxillary edema sinus is seen along with blood in the right ethmoid air cells, right nasal canal and right nasopharynx. No foreign bodies are present. IMPRESSION: 1. Comminuted bilateral nasa l bone fractures with involvement of the frontal bone nasal process and nasal septum. 2. Right orbital medial wall and floor blowout f racture. This report varies slightly from the initial interpretation obtained from the referring facility, which did not mention the right orbit medial wall component. Chest 2 views DX EXAM: XR CHEST 2 VIEWS 12/07/2018 [facility] DATE: 12/07/2018 0605 hours Cente r INDICATION: - orbital fx COMPARISON: None. TECHNIQUE: PA and lateral chest radiographs. [place] SECTION: ER FINDINGS: Lines, tubes and hardware: None. Lungs and pleura: Mild low l kt volume is identified likely associated with thoracic kyphosis. No focal airspace consolidation is identified. Mild bibasilar subsegmental atelectasis is noted. There is t race blunting in the posteri or costophrenic recess on the left. No pneumothorax is identified. Heart and mediastinum: The h eart size is normal. Vascular calcifications are present at the aorta. Bones, soft tissues: No acut e abnormality. Mild osteopenia. Endplate sclerosis and disc space narrowing is present at mid and lower portions of the thoracic spine. IMPRESSION: 1. Mild bibasilar subsegmental atelectasis. 2. Possible trace left pleural effusion. 3. Atherosclerotic aortic disease. 4. Mild osteopenia. 5. 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 Consultation Notes No Data Provided for This Section Discharge Summaries No Data Provided for This Section History and Physicals No Data Provided for This Section Vital Signs Vital Sign Value Date Comments Source Systolic (mm Hg) 156 12/07/2018 [facility] Diastolic (mm Hg) 67 12/07/2018 [facility] Temperature Oral (F) 98.5 F 12/07/2018 [facility] Respitory Rate 18 12/07/2018 [facility] Systolic (mm Hg) 151 12/07/2018 [facility] Diastolic (mm Hg) 68 12/07/2018 [facility] Respitory Rate 18 12/07/2018 [facility] Respitory Rate 18 12/07/2018 [facility] Systolic (mm Hg) 164 12/07/2018 [facility] Diastolic (mm Hg) 71 12/07/2018 [facility] Temperature Oral (F) 98.2 F 12/07/2018 [facility] Heart Rate 76 12/07/2018 [facility] Weight 77.273 12/07/2018 [facility] BMI Calculated 31.16 12/07/2018 [facility] Height 157.48 cm 12/07/2018 [facility] Temperature Oral (F) 97.6 F 12/07/2018 [facility] Heart Rate 74 12/07/2018 [facility] Encounters Location Location Encounter Encounter Reason Attending ADM DC Stat us Source Details Type Number For Provider Date Date [facility] [id number] Casey Pinola 12/07 12/07 [facility] Procedures No Data Provided for This Section Assessment and Plan Assessment and Plan Date Source Extracted from:Title: Ophthalmology Consult Note 12/07/2018 [facility] Author: Krzysztof Munoz MD Date: 12/07/18 Ophthalmology Consultation Note Patient Name: Ina Carrillo MR#: [id number] Room: ED Requesting Team: ED Date of Consult: 12/07/2018 Consulting Attending: Jhon Flores MD Consulting Resident: Krzysztof Munoz MD Reason for Consult: Right orbital floor fracture History of Present Illness: 78 yo woman with PMH of COPD, hypothyroi dism, GERD and POH of CEIOL OU presents after mechanical fall with right orbital floor fracture and facial lacerations. She does not have vision changes including loss of vision, blurry vision, double vision, floaters, fla shes of light. Review of Systems: Constitutional Symptoms: no fever, weight changes. Eyes: as above Ears, Nose, Mouth, Throat: no rhinorrhea, hearing changes, o r oral lesions. Cardiovascular: no chest pain Respiratory: No cough or shortness of breath. Gastrointestinal: no nausea, vomiting, diarrhea Genitourinary: no changes in UOP. Hematopoietic/Lymphatic: no easy bruising, LAD. Musculoskeletal: no generalized pain. Integumentary: no rash Neurological: no headache, weakness. Psychiatry: no behavioral change. Allergy/Immune system: No allergies. Past Ocular History: See HPI Past Medical History: See HPI Past Surgical History: See HPI Social History: No cigarette, alcohol, or drug use. Family History: No known ocular disease. Allergies: No Known Medication Allergies Medications (1) Active Scheduled Meds: None Unscheduled Meds: None PRN Meds: None One Time Meds (1): 12/07/18 (Completed) morphine Sulfate 2 mg IVP ONCE Continuous Infusions: None Eye Medication: none Examination: Neuro/MS: Patient is alert and oriented to person, place, and time. Mental status is grossly normal. Visual Acuity (without correction) Tested on a Near Card: Right Eye: 20/30 Left Eye: 20/30 Confrontation Visual Field: Right Eye: Full Left Eye: Full Extraocular motility: Right Eye: Full Left Eye: Full Pupils: Right Eye: 5->3mm in both eyes with norm al direct and consensual response. No afferent pupillary defect noted. Left Eye: 5->3mm in both eyes with nadir l direct and consensual response. No afferent pupillary defect noted. Intraocular Pressure: Symmetric and norm al to palpation both eyes. Right eye 18, Left eye 16 using the Tonopen. External: Right Eye: Right periorbital bruising and swelling Left Eye: WNL ANTERIOR SEGMENT EXAM: LIDS/LASHES/LACRIMALS: Right: See external Left: See external CONJUNCTIVA/SCLERA: Right: 1+ injection Left: White and quiet CORNEA: Right: Marla, no epi defect Left: Clear, no epi defect ANTERIOR CHAMBER: Right: Formed and grossly clear, no hyphema Left: Formed and grossly clear, no hyphema IRIS: Right: Round and reactive Left: Round and reactive LENS: Right: 3 piece PCIOL Left: 3 piece PCIOL (Z96.1) DILATED FUNDUS EXAM: (Both eyes dilated with phenylephrine 2.5% and tropicamide 1% @800) (24813) Right: OPTIC NERVE: pink, healthy nerve C:D RATIO: 0.2 POSTERIOR SEGMENT: blonde fundus, macula , vessels, periphery within normal limits, no tears or holes Left: OPTIC NERVE: pink, healthy nerve C:D RATIO: 0.2 POSTERIOR SEGMENT: blonde fundus, PVD+, macula, vessels, periphery within normal limits, no tears or holes. (H43.812) Imaging: CT face Ophthalmology read: with right o rbital floor fracture. No signs of entrapment. Procedures Performed: None Diagnoses/Recommendation: 1. Orbital Floor Fracture, right (S02.31XA) - no radiologic or clinical signs of entrapment - globes round and intact on imaging - DFE within normal limits, no holes or tears - RD precautions given - HoB elevated, no nose blowing - defer surgical management to face team 2. Conjunctival injections, right eye 3. Periorbital ecchymosis, right eye (S00.11XA) -Expect spontaneous improvement with conservative management -Ice to right orbit Please call for a follow-up appointment at the [facility] with Dr. Flores in 2-4 weeks. (Located: [address] [place] [address], 18th floor; Appt #: [phone]) Please call if any changes develop. Krzysztof Munoz M.D. [facility] Ophthalmology PGY-2 I personally examined this patient, care fully reviewed the medical record, discussed the case with the resident, and agree with the assessment and plan. Jhon Flores M.D. Plan of Care No Data Provided for This Section Social History Social History Date Source Social History TypeResponse 12/07/2018 [facility] Smoking Status Never smoker; Exposure to Tobacco Smoke None; Cigarette Smoking Last 365 Days No; Reg Smoking Cessation Counseling No entered on: 12/07/18 Family History No Data Provided for This Section Advance Directives No Data Provided for This Section Functional Status No Data Provided for This Section
--- OUTSIDE RECORDS SUMMARY | 2019-11-14 21:29 | XMS REPORT | Continuity of Care Document ---
:1940 Author Organization [facility] t Address [address] [place] [address] Care Team Providers Name Role Phone Sonja ANDERSON, F. Primary Care Physician Sonja ANDERSON, F. Attending Clinician Provider Attending Clinician Estefany ANDERSON Attending Clinician Nan ANDERSON Attending Clinician Karishma Attending Clinician Laci Coe Admitting Clinician Payers Payer Name Policy Policy Number Effective Expiration Source Type Date Date MEDICAREMEDICARE PART xxxxxxxxxxx 2004 Justyn Ireland AND 00:00:00 Yazidi Bxxxxxxxxxxx9- [facility] NVMedicare COMMERCIAL MISCMISC xxxxxxx 2018 [place] COMMERCIALxxxxxxx1 00:00:00 Met mike 2018-Commercia l Problems Condition Condition Condition Status Onset Resolution Last Treating Co mments Source Name Details Category Date Date Treatment Clinician Date S/P Diagnosis Active 2019-02-27 Mem oria FALL-ORBIT - 09:25:00 l AL FLOOR S/P 00:00: Golf FX FALL-ORBIT 00 AL FLOOR FX Active 9 [facility] GERD GERD Disease Active [place] (gastroeso (gastroeso 5-06 Me thodi phageal phageal 00:00: st reflux reflux 00 disease) disease) Benign Benign Disease Active [place] essential essential 09-17 Meth karla HTN HTN 00:00: st 00 Overactive Overactive Disease Active [facility] bladder bladder 09-17 Methodi 00:00: st 00 Chest pain Chest pain Disease Active [place] 09-17 Methodi 00:00: st 00 Shortness Shortness Disease Active Jerry ston of breath of breath 09-17 Meth karla 00:00: st 00 Gastric Gastric Disease Active [place] catarrh catarrh 09-17 Methodi 00:00: st 00 Hiatal Hiatal Disease Active [place] hernia hernia 09-17 Methodi 00:00: st 00 Hypothyroi Hypothyroi Disease Active H [facility] dism dism 09-17 Methodi 00:00: st 00 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 09-17 Me thodi 00:00: st 00 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 09-17 Methodi disturbanc disturbanc 00:00: st e e 00 Peripheral Peripheral Disease Active [facility] blood blood 09-17 Methodi vessel vessel 00:00: st disorder disorder 00 Syncope Syncope Disease Active [place] and and 09-17 Methodi collapse collapse 00:00: st 00 Multiple-t Multiple-t Disease Active H [place] ype ype 09-17 Methodi hyperlipid hyperlipid 00:00: st emia emia 00 Urinary Urinary Disease Active [place] tract tract 09-17 Methodi infection infection 00:00: st 00 Allergies, Adverse Reactions, Alerts Allergy Allergy Status Severity Reaction(s) Onset Inactive Treating Comm ents Source Name Type Date Date Clinician Pneumoco Propensi Active Severe [place] ccal ty to 9-10 local Methodi 23-Grazyna adverse 00:00: reaction. st Ps reaction 00 Vaccine s to drug Sulfa Propensi Active [place] (Sulfona ty to 06 Methodi mide adverse 00:00: st Antibiot reaction 00 ics) s to drug No Known No Known Active Mem[facility] l on on [place] s s Family History Family Member Diagnosis Comments Start Date Stop Date Source Natural child Diabetes [place] [facility] Natural child Seizures [place] [facility] Natural child Thyroid disease [place] Natural father Cancer [place] [facility] Natural mother Dementia [place] [facility] Social History Social Habit Start Date Stop Date Quantity Comments Source History SDOH Social [place] Connections Phone Methodi st History SDOH Social [place] Connections Get Yazidi Together History SDOH Social [place] Connections Yazidism Method ist History SDOH Social [place] [facility] [place]idi Membership History SDOH Social [place] Connections [place]idi Meetings Sex Assigned At [place] Yazidi Exposure to Not sure [place] SARS-CoV-2 (event) Method ist Alcohol intake 2019-09-05 2019-09-05 Current [place] 00:00:00 00:00:00 non-drinker of Yazidi alcohol (finding) History SDOH Social 2018-04-25 2018-04-25 4 [place] Connections Living 00:00:00 00:00:00 Method ist History [facility] 2018-04-25 2018-04-25 2 [place] Transport Med 00:00:00 00:00:00 Yazidi History [facility] 2018-04-25 2018-04-25 2 [place] Transport Non-Med 00:00:00 00:00:[address] Tobacco Comment 2017-09-20 2017-09-20 Committed to [place] 00:00:00 00:00:00 continued Yazidi cessation. History of tobacco 1984-05-15 Current smoker Justyn rene use 00:00:00 Yazidi Smoking Status Start Date Stop Date Source Former smoker 2019-09-05 00:00:00 2019-09-05 00:00:00 [place] Yazidi Social History [facility] Medications Ordered Filled Start Stop Current Ordering Indication Dosage Frequency Signature Comments Components Source Medication Medication Date Date Medication? Clinician (SIG) Name Name levothyroxi Yes Acquired TAKE ONE [place] ne 608 hypothyroid (1) Methodi (SYNTHROID) 00:00: ism TABLET(S) s t 50 mcg 00 BY MOUTH tablet EVERY MORNING. pantoprazol Yes Gastroesoph TAKE ONE [place] e 608 ageal (1) Methodi (PROTONIX) 00:00: reflux TABLET(S) st 40 MG EC 00 disease BY MOUTH tablet with ONCE A esophagitis DAY. rosuvastati Yes Multiple-ty TAKE ONE [place] n (CRESTOR) 5-22 pe (1) Methodi 10 mg 00:00: hyperlipide TABLET(S) st tablet 00 lucía BY MOUTH ONCE A DAY. fluticasone 2020-0 Yes 1{puff} QD Inhale 1 Araya -umeclidin- - puff every Me thodi vilanter 14:14: morning. st 100-62.5-25 12 mcg blister with device aspirin 325 2020-0 Yes TAKE 1 [place] MG tablet -23 TABLET BY Metho di 14:12: MOUTH st 28 EVERY DAY WITH FOOD cephalexin 2020-0 2020- No 500mg Q.25D Take 500 Araya (KEFLEX) - 04-23 mg by Methodi 500 MG 14:12: 00:[address] capsule 28 :00 (four) times a day. umeclidiniu 2020-0 2020- No Inhale. Justyn usgina tinajero (INCRUSE 09-04- Methodi ELLIPTA) 14:10: 00:00 st 62.5 22 :00 mcg/actuati on blister with device tiotropium 2019-0 2020- No Inhale. Jerry ston bromide 09-04 Methodi (SPIRIVA 14:10: 00:00 st RESPIMAT) 09 :00 2.5 mcg/actuati on mist conjugated 2019-0 Yes Overactive .5g QD Insert 0.5 Araya estrogens - bladder g into the M ethodi (PREMARIN) 00:00: vagina st 0.625 00 nightly as mg/gram needed vaginal (irritatio cream n). Premarin 0.625 mg/gram vaginal cream furosemide 2020-0 Yes Benign 40mg QD Take 1 Jerry ston (LASIX) 40 - essential tablet (40 Methodi mg tablet 00:00: HTN mg total) st 00 by mouth daily. sucralfate 2020-0 Yes Gastroesoph TAKE ONE Araya (CARAFATE) - ageal (1) Methodi 1 gram 00:00: reflux TABLET(S) st tablet 00 disease BY MOUTH with FOUR TIMES esophagitis A DAY. Myrbetriq 2020-0 Yes Overactive 50mg QD Take 1 Araya 50 mg -23 bladder tablet (50 Metho di tablet 00:00: mg total) st extended 00 by mouth release 24 daily. hr tiZANidine 2020-0 Yes Pain in TAKE ONE [place] (ZANAFLEX) 09-04 both lower (1) Met hodi 2 MG tablet 00:00: extremities TABLET(S) st 00 BY MOUTH TWICE A DAY NEEDED SHOULDER PAIN. venlafaxine Yes Adjustment 225mg QD Take 1 [place] 225 MG 09-04 reaction, tablet Method i tablet 00:00: depressive, (225 mg s t extended 00 brief total) by release mouth 24hr 24 hr daily. tablet metoprolol Yes Benign TAKE ONE [place] tartrate 09-04 essential (1) Method i (LOPRESSOR) 00:00: HTN TABLET(S) s t 25 mg 00 BY MOUTH tablet TWICE A DAY. potassium 2020- Yes Benign 10meq QD Take 1 [place] chloride 09-04- essential tablet (10 Methodi (KLOR-CON) 00:00: 23:59 HTN mEq total) st 10 MEQ CR 00 :00 by mouth tablet daily for 90 days. pantoprazol 2019- No Gastroesoph 40mg QD Take 1 [place] e 09-04 ageal tablet (40 Methodi (PROTONIX) 00:00: 00:00 reflux mg total) st 40 MG EC 00 :00 disease by mouth tablet with daily. esophagitis levothyroxi 2019- No Acquired 50ug QD Take 1 [place] ne 09-04 hypothyroid tablet (50 M ethodi (SYNTHROID) 00:00: 00:00 ism mcg total) st 50 mcg 00 :00 by mouth tablet every morning for 90 days. rosuvastati 2019-2019- No Multiple-ty 10mg QD Take 1 [place] n (CRESTOR) 09-04 05-22 pe tablet (10 M ethodi 10 MG 00:00: 19:06 hyperlipide mg total) st tablet 00 :20 lucía by mouth daily. potassium 2019- No TAKE ONE Jerry ston chloride 09-01 (1) Methodi (KLOR-CON) 00:00: 00:00 TABLET(S) s t 10 MEQ CR 00 :00 BY MOUTH tablet ONCE A DAY. rosuvastati 2019-2019- No Multiple-ty TAKE ONE [place] n (CRESTOR) 09-01-23 pe (1) Methodi 10 MG 00:00: 00:00 hyperlipide TABLET(S) st tablet 00 :00 lucía BY MOUTH ONCE A DAY. Myrbetriq 2020-0 2020- No Overactive TAKE ONE Araya 50 mg 4-20 -23 bladder (1) Methodi tablet 00:00: 00:00 TABLET(S) st extended 00 :00 BY MOUTH release 24 ONCE A hr DAY. pantoprazol 2019-0 2020- No TAKE ONE [place] e 3- 04-23 (1) Methodi (PROTONIX) 00:00: 00:00 TABLET(S) s t 40 MG EC 00 :00 BY MOUTH tablet ONCE A DAY. levothyroxi 2019-0 2020- No Acquired TAKE ONE [place] ne 3- 04-23 hypothyroid (1) Methodi (SYNTHROID) 00:00: 00:00 ism TABLET(S) st 50 mcg 00 :00 BY MOUTH tablet EVERY MORNING. venlafaxine 2019-0 2020- No Adjustment TAKE ONE [place] 225 MG 3-31 08-23 reaction, (1) Methodi tablet 00:00: 00:00 depressive, TABLET(S) st extended 00 :00 brief BY MOUTH release ONCE A 24hr 24 hr DAY. tablet rosuvastati 2019-0 2019- No Multiple-ty TAKE ONE [place] n (CRESTOR) 3-19 04-20 pe (1) Methodi 10 MG 00:00: 00:00 hyperlipide TABLET(S) st tablet 00 :00 lucía BY MOUTH ONCE A DAY. MYRBETRIQ 2019-0 2020- No Overactive TAKE ONE [place] 50 mg 3-19 04-20 bladder (1) Methodi tablet 00:00: 00:00 TABLET(S) st extended 00 :00 BY MOUTH release 24 ONCE A hr DAY. sucralfate 2019-0 2019- No TAKE ONE Justyn rene (CARAFATE) 2-04 09-23 (1) Methodi 1 gram 00:00: 00:00 TABLET(S) st tablet 00 :00 BY MOUTH FOUR TIMES A DAY. levothyroxi 2019-0 2020- No Acquired TAKE ONE [place] ne 2-11 14-27 hypothyroid (1) Methodi (SYNTHROID) 00:00: 00:00 ism TABLET(S) st 50 mcg 00 :00 BY MOUTH tablet EVERY MORNING. pantoprazol 2019-0 2020- No [facility] -12 08-27 (1) Methodi (PROTONIX) 00:00: 00:00 TABLET(S) s t 40 MG EC 00 :00 BY MOUTH tablet ONCE A DAY. rosuvastati 2019- No Multiple-ty TAKE ONE Araya n (CRESTOR) 06-07 pe (1) Methodi 10 MG 00:00: 00:00 hyperlipide TABLET(S) st tablet 00 :00 lucía BY MOUTH ONCE A DAY. estradiol Acute 1g Q2D Insert 1 g Marshal (ESTRACE) 06-05 cystitis into the M ethodi 0.01 % (0.1 00:00: 23:[address] mg/gram) 00 :00 hematuria every vaginal other day. cream metoprolol Benign TAKE ONE [place] tartrate 06-05 essential (1) Metho di (LOPRESSOR) 00:00: 00:00 HTN TABLET(S) st 25 mg 00 :00 BY MOUTH tablet TWICE A DAY. acetaminoph 2019- chronic 1{tbl} Q4H Take 1 [place] en-codeine 06-05 pain tablet by Met [facility]ohns (TYLENOL 00:00: 23:[address] WITH 00 :00 every 4 CODEINE #3) (four) 300-30 mg hours as per tablet needed for moderate pain for up to 10 days .chronic pain. levothyroxi 2018-05- Acquired TAKE ONE [place] ne 06-19 hypothyroid (1) Methodi (SYNTHROID) 00:00: 00:00 ism TABLET(S) st 50 mcg 00 :00 BY MOUTH tablet EVERY MORNING. pantoprazol 2018-05- No TAKE ONE [place] e 06-19 (1) Methodi (PROTONIX) 00:00: 13:25 TABLET(S) s t 40 MG EC 00 :12 BY MOUTH tablet ONCE A DAY. potassium 2018-05- No TAKE ONE Jerry ston chloride 06-02 (1) Methodi (KLOR-CON) 00:00: 00:00 TABLET(S) s t 10 MEQ CR 00 :00 BY MOUTH tablet ONCE A DAY. sucralfate 2019- No TAKE ONE [place] (CARAFATE) 02-11 (1) Methodi 1 gram 00:00: 00:00 TABLET(S) st tablet 00 :00 BY MOUTH FOUR TIMES A DAY. pantoprazol 2018- No TAKE ONE [place] e 02-11 (1) Methodi (PROTONIX) 00:00: 00:00 TABLET(S) s t 40 MG EC 00 :00 BY MOUTH tablet ONCE A DAY. levothyroxi 2018- No Acquired TAKE ONE Araya ne 02-11 hypothyroid (1) Methodi (SYNTHROID, 00:00: 00:00 ism TABLET(S) st LEVOXYL) 50 00 :00 BY MOUTH mcg tablet EVERY MORNING. traMADol 2018- No TAKE ONE [place] (ULTRAM) 50 02-11 (1) Methodi mg tablet 00:00: 23:59 TABLET(S) st 00 :00 BY MOUTH ONCE A DAY NEEDED FOR MODERATE PAIN OR SEVERE PAIN FOR UP TO 30 DAYS. MYRBETRIQ 2019- No Overactive TAKE ONE [place] 50 mg 12-18 bladder (1) Methodi tablet 00:00: 00:00 TABLET(S) st extended 00 :00 BY MOUTH release 24 ONCE A hr DAY. metoprolol 2019- Benign TAKE ONE [place] tartrate 12-18 essential (1) Metho di (LOPRESSOR) 00:00: 00:00 HTN TABLET(S) st 25 mg 00 :00 BY MOUTH tablet TWICE A DAY. acetaminoph 2018- No Orbital 1{tbl} Q4H Take 1 [place] en-codeine 12-18 fracture, tablet by Methodi (TYLENOL 00:00: 23:[address] WITH 00 :00 every 4 CODEINE #3) (four) 300-30 mg hours as per tablet needed for moderate pain for up to 30 days. furosemide 2019- No TAKE ONE [place] (LASIX) 40 12-13 (1) Methodi mg tablet 00:00: 00:00 TABLET(S) st 00 :00 BY MOUTH ONCE A DAY. pantoprazol 2019- No TAKE 1 Jerry ston e 12-09-23 TABLET BY Methodi (PROTONIX) 00:00: 00:[address] 40 MG EC 00 :00 EVERY DAY tablet levothyroxi 2019-0 2020- No Acquired TAKE 1 [place] ne 12-09 hypothyroid TABLET IN Mo thodi (SYNTHROID, 00:00: 00:[address] LEVOXYL) 50 00 :00 MORNING mcg tablet metoprolol 2018- No TAKE 1 [place] tartrate 12-09 TABLET BY Gab little (LOPRESSOR) 00:00: 00:[address] 25 mg 00 :00 TWICE A tablet DAY Acetaminoph No Notes: Do M emoria en 12-07 not exceed l 16:37: 4 gm/day. Golf (Same as: Tylenol) Bacitracin Yes 1 appl, Chava natividad 0.5 UNT/MG 12-07 TOP, TID, l Topical 14:03: Apply a [place] Ointment 00 thin layer to affected area, X 7 day, # 30 gm, 0 Refill(s) [place] Nasal Yes 1 appl, Mem oria Moisturizer 12-07 TOP, BID, l topical gel 14:03: PRN as Herm shanice needed for dry skin, # 5 gm, 0 Refill(s) Morphine No 2 mg, Memoria 12-07 Route: l 10:51: IVP, ONCE, Golf 00 Dosing Weight 77.273, kg, Priority: STAT, Start date: 12/07/18 5:51:00 CDT, Stop date: 12/07/18 5:51:00 CDT rosuvastati 2018- No Multiple-ty TAKE ONE [place] n (CRESTOR) 12-04 pe (1) Methodi 10 MG 00:00: 00:00 hyperlipide TABLET(S) st tablet 00 :00 lucía BY MOUTH ONCE A DAY. rosuvastati 2019- No Multiple-ty TAKE ONE [place] n (CRESTOR) 11-13 pe (1) Methodi 10 MG 00:00: 00:00 hyperlipide TABLET(S) st tablet 00 :00 lucía BY MOUTH ONCE A DAY. tiZANidine 2019- No Pain in TAKE ONE [place] (ZANAFLEX) 10-05-23 both lower (1) Mo thodi 2 MG tablet 00:00: 00:00 extremities TABLET(S) st 00 :00 BY MOUTH TWICE A DAY NEEDED SHOULDER PAIN. venlafaxine 2018- No Adjustment TAKE ONE Araya 225 MG 10-04 08- reaction, (1) Methodi tablet 00:00: 00:00 depressive, TABLET(S) st extended 00 :00 brief BY MOUTH release ONCE A 24hr 24 hr DAY. tablet potassium 2019- No TAKE ONE Jerry ston chloride 09-29 04-20 (1) Methodi (KLOR-CON) 00:00: 00:00 TABLET(S) s t 10 MEQ CR 00 :00 BY MOUTH tablet ONCE A DAY. triamcinolo 2019- No Q.5D Apply [place] ne 09-18 05-06 topically Methodi (KENALOG) 00:00: 23:59 2 (two) st 0.1 % 00 :00 times a ointment day. Prn itch or rash. metoprolol 2018- No TAKE ONE [place] tartrate 09-13 07-28 (1) Methodi (LOPRESSOR) 00:00: 00:00 TABLET(S) st 25 mg 00 :00 BY MOUTH tablet TWICE A DAY. furosemide 2018- No TAKE ONE [place] (LASIX) 40 - 08- (1) Methodi mg tablet 00:00: 07:15 TABLET(S) st 00 :29 BY MOUTH ONCE A DAY. levothyroxi 2018- No Acquired TAKE ONE Araya ne 08-11-28 hypothyroid (1) Methodi (SYNTHROID, 00:00: 00:00 ism TABLET(S) st LEVOXYL) 50 00 :00 BY MOUTH mcg tablet EVERY MORNING. pantoprazol 2018- No TAKE ONE [place] e 08-07-28 (1) Methodi (PROTONIX) 00:00: 00:00 TABLET(S) s t 40 MG EC 00 :00 BY MOUTH tablet ONCE A DAY. venlafaxine 2019- No Adjustment TAKE ONE Araya 225 MG 08-05 03-19 reaction, (1) Methodi tablet 00:00: 00:00 depressive, TABLET(S) st extended 00 :00 brief BY MOUTH release ONCE A 24hr 24 hr DAY. tablet metoprolol 2018- No TAKE ONE [place] tartrate 07-18 08-06 (1) Methodi (LOPRESSOR) 00:00: 00:00 TABLET(S) st 25 mg 00 :00 BY MOUTH tablet TWICE A DAY. KLOR-CON 10 2017-05- No TAKE ONE [place] 10 mEq CR 1-05 11-18 (1) Methodi tablet 00:00: 00:00 TABLET(S) st 00 :00 BY MOUTH ONCE A DAY. MYRBETRIQ 2018- Overactive TAKE ONE [place] 50 mg 5- 08- bladder (1) Methodi tablet 00:00: 00:00 TABLET(S) st extended 00 :00 BY MOUTH release 24 ONCE A hr DAY. fluticasone 2016-05- No Bronchitis, QD Inhale 1 [place] -vilanterol 05-2123 mucopurulen inhalation Methodi (BREO 00:00: 00:00 t recurrent s once st ELLIPTA) 00 :00 (HCC) daily. 100-25 mcg/dose blister with device powder for inhalation sucralfate 2016-05- TAKE ONE [place] (CARAFATE) 0-25 -22 (1) Methodi 1 gram 00:00: 00:00 TABLET(S) st tablet 00 :00 BY MOUTH FOUR TIMES A DAY. rosuvastati 2019- No TAKE ONE [place] n (CRESTOR) 9-20 -22 (1) Methodi 10 MG 00:00: 00:00 TABLET(S) st tablet 00 :00 BY MOUTH ONCE A DAY. metoprolol 2018- Benign TAKE ONE [place] tartrate 329 08-06 essential (1) Metho di (LOPRESSOR) 00:00: 00:00 HTN TABLET(S) st 25 mg 00 :00 BY MOUTH tablet TWICE A DAY. conjugated 2019- QD Insert [place] estrogens 09-17- into the Metho di (PREMARIN) 00:00: 00:[address] vaginal 00 :00 daily. cream Premarin 0.625 mg/gram vaginal cream Immunizations Ordered Immunization Filled Immunization Date Status Commen ts Source Name Name Influenza, 2019-04-28 Completed [place] Unspecified 00:00:00 Y[place] FLUZONE HIGH-DOSE PF 2018-01-18 Completed [place] 00:00:00 [place] Pneumococcal 2018-01-18 Completed [facility] Polysaccharide 00:00:00 Yaz[place] Pneumococcal 2017-04-17 Completed [place] Conjugate 13-Valent 00:00:00 Metho dist Influenza, 2017-02-09 Completed [place] Unspecified 00:00:00 [place] Pneumococcal 2016-03-14 Completed [place] Conjugate 13-Valent 00:00:00 Metho dist FLUZONE HIGH-DOSE PF 2016-02-16 Completed [place] 00:00:00 [place] Td, Unspecified 2013-11-17 Completed [place] 00:00:00 [place] Zoster 2013-02-12 Completed [place] 00:00:00 Y[place]idi Vital Signs Vital Name Observation Time Observation Value Comments Source Systolic blood 2019-09-05 14:13:00 147 mm[Hg] [place] pressure Diastolic blood 2019-09-05 14:13:00 65 mm[Hg] [place] pressure Heart rate 2019-09-05 14:13:00 66 /min [place] Yazidi Body temperature 2019-09-05 14:13:00 36.61 [place] Respiratory rate 2019-09-05 14:13:00 18 /min [place] Body height 2019-09-05 14:13:00 160 cm [place] Yazidi Body weight 2019-09-05 14:13:00 81.194 kg [place] Yazidi BMI 2019-09-05 14:13:00 31.71 kg/m2 [place] Yazidi Oxygen saturation in 2019-06-05 16:21:00 96 /min [facility] Arterial blood by Pulse oximetry Systolic (mm Hg) 2018-12-07 17:38:00 Chava rial [place] Diastolic (mm Hg) 2018-12-07 17:38:00 Mem orial [place] Temperature Oral (F) 2018-12-07 17:38:00 98.5 F [facility] Respitory Rate 2018-12-07 17:38:00 Memori al [place] Systolic (mm Hg) 2018-12-07 10:00:00 Chava rial [place] Diastolic (mm Hg) 2018-12-07 10:00:00 Mem orial [place] Respitory Rate 2018-12-07 10:00:00 Memori al [place] Respitory Rate 2018-12-07 08:25:00 Memori al [place] Systolic (mm Hg) 2018-12-07 08:25:00 Chava rial [place] Diastolic (mm Hg) 2018-12-07 08:25:00 Mem orial Hong Temperature Oral (F) 2018-12-07 06:56:00 98.2 F [facility] Heart Rate 2018-12-07 06:56:00 [facility] Weight 2018-12-07 05:38:00 [facility] BMI Calculated 2018-12-07 05:38:00 Kesha ramiro [place] Height 2018-12-07 05:38:00 157.48 cm [facility] Temperature Oral (F) 2018-12-07 05:38:00 97.6 F [facility] Heart Rate 2018-12-07 05:38:00 [facility] Procedures Procedure Date / Time Performed Performing Clinician [facility] e URINE CULTURE 2019-10-31 10:28:00 Nataly Tellez LIPID PANEL 2019-10-31 10:28:00 Nataly Tellez HEMOGLOBIN A1C 2019-10-31 10:28:00 Nataly Tellez COMPREHENSIVE METABOLIC 2019-10-31 10:28:00 Nataly Tellez PANEL CBC WITH PLATELET AND 2019-10-31 10:28:00 Nataly Tellez DIFFERENTIAL THYROID STIMULATING 2019-10-31 10:28:00 Nataly Tellez HORMONE T4, FREE 2019-10-31 10:28:00 Nataly Tellez URINALYSIS, AUTOMATED 2019-10-31 10:28:00 Ntaaly Tellez WITH MICROSCOPY CONSULT GYNECOLOGY 2019-06-18 00:00:00 Provider, Priscilla De Leon MRI CERVICAL SPINE WO 2019-01-17 14:44:49 Cole Allison CONTRAST IP CONSULT TO PULMONOLOGY 2018-11-13 00:00:00 Provider, Frank Ayoub Plan of Care Planned Activity Planned Date Details Comments Source Future Scheduled 2019-12-14 INFLUENZA VACCINE [place] Test 00:00:00 [code = INFLUENZA VACCINE] Future Scheduled 2013-04-14 SHINGLES VACCINES [place] Test 00:00:00 (#2) [code = SHINGLES VACCINES (#2)] Encounters Start End Encounter Admission Attending Care Care Encounter Source Date/Time Date/Time Type Type Clinicians Facility Department ID 2019-10-31 2019-10-31 Outpatient SONJA [facility] [id number] [place] 00:00:00 00:00:00 NATALY 976 Method i 2019-09-05 2019-09-05 Outpatient SONJA [facility] [id number] [place] 00:00:00 00:00:00 NATALY 740 Method i 2018-12-07 2018-12-07 Outpatient Karishma [facility] [id number] 00:15:00 12:40:00 Emeterio 07 2018-12-07 2018-12-07 Emergency E [facility] [address] [facility] 00:15:00 00:15:00 Results Test Description Test Time Test Comments Results Result Comments Source Comprehensive metabolic panel 2019-11-02 10:13:00 Test Item Value Reference Range Interpretation Comme nts Glucose (test code = 104 mg/dL 65-99 H Fasting 2345-7) reference inter grazyna For someone without known diabetes, a glu cose valuebetween 10 0 and 125 mg/dL is consis tent withprediabetes and should be confi rmed with afollow-up test . BUN (test code = 21 mg/dL - 3094-0) Creatinine (test code = 0.86 mg/dL 0.6-0.88 For patients >49 years of 2160-0) age, the refere nce limitfor Creati nine is approximately 1 3% higher for peopleident ified as -Kristina n. EGFR Non-Afr. Bruneian 64 > OR = 60 (test code = 2775) mL/min/1.73m2 EGFR 74 > OR = 60 (test code = 61460-1) mL/min/1.73m2 BUN/creatinine ratio NOT APPLICABLE 6- 22 (calc) (test code = 3097-3) Sodium (test code = 141 mmol/L 977-983 8746-2) Potassium (test code = 4.3 mmol/L 3.5-5.3 2823-3) Chloride (test code = 104 mmol/L 98-110 2075-0) CO2 (test code = 26 mmol/L 20-32 8-9) Calcium (test code = 9.2 mg/dL 8.6-10.4 20447-2) Protein (test code = 6.8 g/dL 6.1-8.1 2885-2) Albumin, S (test code = 4.0 g/dL 3.6-5.1 1751-7) Globulin, total (test 2.8 1.9- 3.7 g/dL code = 79093-1) (calc) Albumin/globulin ratio 1.4 1.0- 2.5 (test code = 1759-0) (calc) Total bilirubin (test 0.4 mg/dL 0.2-1.2 code = 1974-2) Alkaline phosphatase 63 U/L 37-153 (test code = 6768-6) AST (test code = 20 U/L 10-35 1920-8) ALT (test code = 19 U/L 6-29 1742-6) DAVID (test code = DAVID) FASTING: UNKNOWN RAC (test code = RAC) Performing Organization Information: Site ID: RGA Name: [facility] Lab Address: [address] [place] [id number] Director: Abad Elizalde Lab Interpretation Abnormal (test code = 09014-4) [place] [facility] [id number] 10:13:00 Test Item Value Reference Range Interpretation Comments Cholesterol, total 144 mg/dL <200 (test code = 2093-3) HDL cholesterol 55 mg/dL > OR = 50 (test code = 2085-9) Triglycerides (test 149 mg/dL <150 code = 2571-8) LDL cholesterol 66 mg/dL (calc) Reference ra nge: calculated (test <100 Desira ble code = 96038-9) range <100 m g/dL for primary prevention; <7 0 mg/dL for patients with C HD or diabetic patients with > or = 2 CHD risk factors. LDL-C is now calculated using the Celia calculation, which is a validated novel method providin g better accuracy than the Friedewald equation in the estimation of LDL-C. Romeo Crocker S et al. [place]. 2013;310(19): 0787-2213 (http://educati on .SurgientDiagnostConXtech .com/faq/MUM487 ) Cholesterol/HDL 2.6 <5.0 (calc) ratio (test code = 9830-1) Non-HDL cholesterol 89 <130 mg/dL For demetris ents with (test code = (calc) diabetes plus 1 82616-0) major ASCVD ris k factor, treatin g to a non-HDL-C goal of <100 mg/dL (LDL-C of <70 mg/dL) is considered a therapeutic option. DAVID (test code = FASTING: UNKNOWN DAVID) RAC (test code = Performing RAC) Organization Information: Site ID: [facility] Name: [facility] Address: [address] [place] [phone] Director: Abad Elizalde [place] MethodistHem[facility] [id number] 10:13:00 Test Item Value Reference Interpretation Comments Range Hemoglobin A1C 6.0 <5.7 % of H For someone w edilson (test code = total Hgb known diabetes, a 4548-4) hemoglobin A1c value between 5.7% an d 6.4% is consist ent withprediabetes and should be confi rmed with a follow-u p test. For someo ne with known diab etes, a value <7%indicates that their diabetes is well controlled . D5tnkqklxe shou ld be individualized based on duration ofdiabetes, age , comorbid condit ions, and otherconsiderat ions. This assay resu lt is consistent with an increased risko f diabetes. Currsharyn ntly, no consensus ex ists regarding use ofhemoglobin A1 c for diagnosis of diabetes for children. DAVID (test code = FASTING: UNKNOWN DAVID) RAC (test code = Performing RAC) Organization Information: Site ID: [facility] Name: [facility] Address: [address] [place] [phone] Director: Abad Elizalde Lab Interpretation Abnormal (test code = 31545-4) [place] MethodistT4, [id number] 10:13:00 Test Item Value Reference Range Interpretation Comments T4, free (test code 1.1 ng/dL 0.8-1.8 = 3024-7) DAVID (test code = FASTING: UNKNOWN DAVID) RAC (test code = Performing Organization RAC) Information: Site ID: [facility] Name: [facility] Address: [address] [place] [phone] Director: Abad Elizalde [place] MethodistThyroid stimulating [id number] 10:13:00 Test Item Value Reference Range Interpretation Comments TSH (test code = 2.55 0.40- 4.50 mIU/L 3016-3) DAVID (test code = FASTING: UNKNOWN DAVID) RAC (test code = Performing Organization RAC) Information: Site ID: [facility] Name: [facility] Address: [address] [place] [phone] Director: Abad De LeonUrine [id number] 10:13:00 Test Item Value Reference Range Interpretation Comments Urine culture SEE NOTE CULTURE, URI NE, (test code = ROUTINE Juan M ro 630-4) Number: [id number] Test Status: Final Specimen Source: URINE Specimen Qualit y: Adequate Result: No Growth DAVID (test code = FASTING: UNKNOWN DAVID) RAC (test code = Performing RAC) Organization Information: Site ID: [facility] Name: [facility] Address: [address] [place] [phone] Director: Abad Elizalde [place] MethodistCBC with platelet and [id number] 10:13:00 Test Item Value Reference Range Interpretation Comments WBC (test code = 6.4 3.8- 10.8 6690-2) Thousand/uL RBC (test code = 789-8) 4.53 3.80- 5.10 Million/uL HGB (test code = 718-7) 12.7 g/dL 11.7-15.5 HCT (test code = 40.3 % 35-45 4544-3) MCV (test code = 787-2) 89.0 fL 80-100 MCH (test code = 785-6) 28.0 pg 27-33 MCHC (test code = 31.5 g/dL 32-36 L 786-4) RDW (test code = 788-0) 14.3 % 11-15 Platelet count (test 296 140- 400 code = 777-3) Thousand/uL MPV (test code = 776-5) 12.0 fL 7.5-12.5 Neutrophils, absolute 3565 1,500 - 7,800 (test code = 751-8) cells/uL Lymphocytes, absolute 1882 850- 3,900 (test code = 731-0) cells/uL Monocytes, absolute 595 200- 950 cells/uL (test code = 742-7) Eosinophils, absolute 288 15- 500 cells/uL (test code = 711-2) Basophils, absolute 70 0- 200 cells/uL (test code = 704-7) Neutrophils (test code 55.7 % = 770-8) Lymphocytes (test code 29.4 % = 736-9) Monocytes (test code = 9.3 % 5905-5) Eosinophils (test code 4.5 % = 713-8) Basophils + RC (test 1.1 % code = 706-2) DAVID (test code = DAVID) FASTING: UNKNOWN RAC (test code = RAC) Performing Organization Information: Site ID: [facility] Name: [facility] Address: [address] [place] [phone] Director: Abad Elizalde Lab Interpretation Abnormal (test code = 11382-3) [place] MethodistUrinalysis, automated with [id number] 10:13:00 Test Item Value Reference Range Interpretation Comments Color, UA (test code = YELLOW YELLOW 5778-6) Appearance (test code = CLEAR CLEAR 5767-9) Specific gravity, urine 1.019 1.001-1.035 (test code = 5811-5) pH, urine (test code = < OR = 5.0 5.0-8.0 5803-2) Glucose, urine (test NEGATIVE NEGATIVE code = 84419-3) Bilirubin, UA (test code NEGATIVE NEGATIVE = 5770-3) Ketones, UA (test code = NEGATIVE NEGATIVE 2514-8) Occult blood, urine NEGATIVE NEGATIVE (test code = 5794-3) Protein, UA (test code = NEGATIVE NEGATIVE 51917-9) Nitrite, UA (test code = NEGATIVE NEGATIVE 5802-4) Leukocyte esterase, UA TRACE NEGATIVE A (test code = 5799-2) WBC, UA (test code = 0-5 < OR = 5 /HPF 5821-4) RBC, UA (test code = NONE SEEN < OR = 2 /HPF 07322-0) Squamous epithelial NONE SEEN < OR = 5 /HPF cells, UA (test code = 34589-4) Bacteria, UA (test code NONE SEEN NONE SEEN /HPF = 5769-5) Hyaline casts, UA (test NONE SEEN NONE SEEN /LPF code = 5796-8) DAVID (test code = DAVID) FASTING: UNKNOWN RAC (test code = RAC) Performing Organization Information: Site ID: [facility] Name: [facility] Lab Address: [address] [place] [phone] Director: Abad Elizalde Lab Interpretation (test Abnormal code = 04721-1) [place] [facility] B[facility] [id number] 06:39:00Negative (12/07/18 1:39 AM) [facility]ARDIAC [id number] 06:39:00<0.02[facility] RPKESNMJGWRD7526-43-03 06:39:0011.3[facility] WfcvqaxFHAYDDEIWRHR1619-14-20 06:39:000.92[facility] VgevvcxBPPGYITLLJAO7399-54-27 06:39:22033Fspwotyk Golf WUOVOFKQOVHW9070-24-47 06:39:0021[facility] BoiiqpqNLISWIZZBQLI1942-96-02 06:39:00 4.3[facility] YzkevshXIRTWZYHPVWK3131-79-04 06:39:03701Uzdmvjdt Hong RBCNAFHZHGVN7314-09-78 06:39:0026[facility] ZexpjzdTHMPQVXPCCBG7208-63-55 06:39:00 9.1[facility] YjcmcruDGFQTVUMFGES8372-50-99 06:39:0059[facility] HermannELECTROLYTES 2018-12-07 06:39:03519Tloupnws EzyfyhtTJRVLFTLXV1174-50-99 06:39:0077.4[facility] OtoqcxpPBNAUFQEGW1666-52-05 06:39:0014.6[facility] JgbbcgzSPVCEIIQIM7220-28-15 06:39:000.1[facility] XcmjgzvBACLEZXWRE5204-24-31 06:39:000.1[facility] Hong UZHZFFMLFI7090-14-39 06:39:000.7[facility] NzyzycgWZQQLXTQMI8149-02-80 06:39:001.3 [facility] FptuldsUEKAOWXQLC6392-93-71 06:39:006.0[facility] HermannHEMATOLOGY 2018-12-07 06:39:008.9[facility] EesrhttOFMKPANXVV4903-38-00 06:39:000.7[facility] WminygzCETCZDFMYG1839-30-85 06:39:001.7[facility] SsvxyrqKYMNJNGLKY5932-88-77 06:39:000.0[facility] CeddwbgYPPLOFWHOO2174-24-87 06:39:008.7[facility] GYOZNRDOSQ5631-52-67 06:39:00 Test Item Value Reference Range Interpretation Comments Max Amplitude Rapid (test code = Max 63 mm 52-71 Amplitude Rapid) [facility]qqomoEOHJBJCMEY7237-93-70 06:39:00 Test Item Value Reference Range Interpretation Comments Split Point Rapid (test code = Split 0.5 min Point Rapid) [facility] HospitalQisbxsrNMOWKLQMSF7664-39-49 06:39:00 Test Item Value Reference Range Interpretation Comments R-time Rapid (test code = R-time 0.6 min 0.4-0.7 Rapid) [facility] HospitalZdxpeexJKYGFEHVVR2171-15-23 06:39:00 Test Item Value Reference Range Interpretation Comments K-time Rapid (test code = K-time 1.5 min 0.6-2.3 Rapid) [facility] CenterHqlezdwVQUWGFPUCO4029-93-41 06:39:00 Test Item Value Reference Range Interpretation Comments Angle Rapid (test code = Angle 73 degrees 64-80 Rapid) [facility] HospitalOubewrmWWMIQLKTFW0851-33-32 06:39:00 Test Item Value Reference Range Interpretation Comments ACT (TEG) Rapid (test code = ACT (TEG) 105 s 86-118 Rapid) [facility] HospitalGhzjdneFYAPXZVSNS8535-39-24 06:39:00 Test Item Value Reference Range Interpretation Comments PT (test code = PT) 12.8 s 12.0-14.7 [facility] CenterZpeisgeXOFARDOFXW5306-53-52 06:39:00 Test Item Value Reference Range Interpretation Comments INR (test code = INR) 0.98 1 0.85-1.17 [facility] CenterTgiucqiASIWASZVNC0037-47-23 06:39:78112Xugkrgdd HermannHEMATOLOGY 2018-12-07 06:39:0014.3[facility] QdegemnXGPJYPJRZW7587-46-59 06:39:0033.4[facility] AapcjinYPAISEVTXL4848-25-78 06:39:00 Test Item Value Reference Range Interpretation Comments MCH (test code = MCH) 29.8 pg 27.0-31.0 [facility] CenterAtcvzvqIGGPMYPQAZ2280-57-08 06:39:0089.0[facility] HermannHEMATOLOGY 2018-12-07 06:39:0037.5[facility] GbhoctwEFCCJIUSFG6720-78-93 06:39:004.21[facility] GsohrfjGYLZSHYQEP0539-25-54 06:39:0012.5[facility] RykzebnKTFDOBUSKC6354-94-85 06:39:0011.5[facility] IpwnqzaNACJIIYGLJ1321-95-61 06:39:008.7[facility] GAHKISPWEO3666-63-43 06:39:00 Test Item Value Reference Range Interpretation Comments PTT (test code = PTT) 29.9 s 22.9-35.8 [facility]
[2019-11-14 21:40] LABS: Absolute Lymphocytes (CBC) 2.4 K/uL (0.7-4.9); Basophils % 1.4 % (0-1.3); Hematocrit 39.7 % (36.0-45.0); Lymphocytes % 28.7 % (15.3-44.8); MPV 8.9 fL (7.6-11.3); RBC Red Blood Cell Count 4.65 M/uL (3.86-4.86)
--- NOTE | 2019-11-14 21:41 | RAD REPORT ---
EXAM DESCRIPTION: RAD - Chest Single View - 11/14/2019 9:23 pm CLINICAL HISTORY: COPD Chest pain. COMPARISON: Chest Pa And Lat (2 Views) dated 09/18/2015; CHEST SINGLE VIEW dated 05/10/2013; CHEST PA AND LAT 2 VIEW dated 02/11/2013; CHEST SINGLE VIEW dated 08/10/2008 FINDINGS: Portable technique limits examination quality. Opacity in the medial right lung base may represent infiltrate, atelectasis or pneumonia. The heart i s mildly prominent size. No displaced fractures.
[2019-11-14 21:48] LABS: BUN Blood Urea Nitrogen 18 mg/dL (7-18); Bicarbonate 28 mmol/L (21-32); Glucose Level 115 mg/dL (74-106); Potassium 3.7 mmol/L (3.5-5.1); Sodium Level 142 mmol/L (136-145); Troponin (Emerg Dept Use Only) < 0.02 ng/mL (0.0-0.045)
[2019-11-14] MEDS ORDERED: predniSONE 20 MG TAB ONE (23:01)
[2019-11-14] MEDS ORDERED: CIPROFLOXACIN HCL 500 MG TAB ONE (23:01)
--- NOTE | 2019-11-14 23:01 | ER ---
Nurse's Notes [facility] Name: Ina Carrillo Age: 79 yrs Sex: Female : 1940 Arrival Date: 11/14/2019 Time: 19:16 Bed 19 Private MD: Diagnosis: Pneumonia, unspecified organism Presentation: 11/13 19:56 Chief complaint: Patient states: i was tested for cov[facility] today \T\ 3 pm [facility]. i have mg2 chest tightness since 2 days ago. i have copd. Coronavirus screen: Surgical mask placed on patient. Patient moved to private room, placed in contact and droplet isolation with eye protection until further assessment. Patient denies a cough. Patient reports shortness of breath or difficulty breathing. Patient denies measured and/or subjective temperature greater than 100.4F prior to today's visit. Patient denies travel on a cruise ship or to a country the [facility] currently lists as an affected area. Ebola Screen: No symptoms or risks identified at this time. Initial Sepsis Screen: Does the patient meet any 2 criteria? No. Patient's initial sepsis screen is negative. Does the patient have a suspected source of infection? No. Patient's initial sepsis screen is negative. Risk Assessment: Do you want to hurt yourself or someone else? Patient reports no desire to harm self or others. Onset of symptoms was November 2019. 19:56 [place] [facility] [place] Acuity: SARAH 3 mg2 Historical: - Allergies: 20:00 No Known Allergies; mg2 - PMHx: 20:00 copd; Hypertension; Hypothyroidism; mg2 - PSHx: 20:00 Appendectomy; Tubal ligation; Hysterectomy; Cholecystectomy; mg2 - Immunization history:: Flu vaccine is up to date. - Social history:: Smoking status: Patient denies any tobacco usage or history of. Patient/guardian denies using alcohol, street drugs, IV drugs. Screenin:05 Abuse screen: Denies threats or abuse. Denies injuries from another. Nutritional ca1 screening: No deficits noted. Tuberculosis screening: No symptoms or risk factors identified. Fall Risk IV access (20 points). Assessment: 20:05 General: Appears in no apparent distress. comfortable, Behavior is calm, cooperative, ca1 appropriate for age. Pain: Complains of pain in mid-sternal area Pain does not radiate. Pain currently is 4 out of 10 on a pain scale. Quality of pain is described as tight Pain began 4 hours ago. Is continuous, Aggravated by breathing. Neuro: Level of Consciousness is awake, alert, obeys commands, Oriented to person, place, time, situation. Cardiovascular: Heart tones S1 S2 present Capillary refill < 3 seconds Patient's skin is warm and dry. Cardiovascular: Rhythm is sinus rhythm. Respiratory: Airway is patent Respiratory effort is even, unlabored, Respiratory pattern is regular, symmetrical, Breath sounds are clear bilaterally. GI: Abdomen is round non-distended, Bowel sounds present X 4 quads. Abd is soft and non tender X 4 quads. : No signs and/or symptoms were reported regarding the genitourinary system. EENT: No signs and/or symptoms were reported regarding the EENT system. Derm: Skin is intact, is healthy with good turgor, Skin is pink, warm \T\ dry. Musculoskeletal: Circulation, motion, and sensation intact. Capillary refill < 3 seconds. 21:04 Reassessment: Patient appears in no apparent distress at this time. Patient and/or ca1 family updated on plan of care and expected duration. Pain level reassessed. Patient is alert, oriented x 3, equal unlabored respirations, skin warm/dry/pink. Reassessment: Luanne Luis, daughter. [phone]. 23:22 Reassessment: Patient denies pain at this time. Patient states feeling better. mg2 Vital Signs: 19:56 BP 153 / 69; Pulse 71; Resp 18; Temp 97.6; Pulse Ox 98% on R/A; Weight 81.19 kg; Height mg2 5 ft. 3 in. (160.02 cm); Pain 4/10; 21:05 BP 110 / 56; Pulse 67; Resp 18 S; Pulse Ox 96% on R/A; ca1 22:40 BP 120 / 69; Pulse 71; Resp 18; Pulse Ox 96% on R/A; mg2 19:56 Body Mass Index 31.71 (81.19 kg, 160.02 cm) mg2 ED Course: 19:16 Patient arrived in ED. bp1 19:58 Triage completed. mg2 19:58 Arm band placed on. mg2 20:05 Patient has correct armband on for positive identification. Placed in gown. Bed in low ca1 position. Call light in reach. Side rails up X 1. tractor operator on. Pulse ox on. NIBP on. Warm blanket given. 20:13 Carri Godwin, RN is Primary Nurse. ca1 20:34 Deborah Ponce FNP-C [facility]. snw 20:34 Nicholas Adams MD is Attending Physician. snw 21:23 Chest Single View XRAY In Process Unspecified. EDMS 21:25 No provider procedures requiring assistance completed. Initial lab(s) drawn, by ms, ca1 sent to lab. Inserted saline lock: 20 gauge in right antecubital area, using aseptic technique. Blood collected. 23:22 IV discontinued, intact, bleeding controlled, No redness/swelling at site. Pressure mg2 dressing applied. Administered Medications: 22:59 Drug: Zithromax 500 mg Route: PO; mg2 23:05 Follow up: Response: No adverse reaction; Medication administered at discharge. mg2 22:59 Drug: predniSONE 20 mg Route: PO; mg2 23:05 Follow up: Response: No adverse reaction; Medication administered at discharge. mg2 Outcome: 23:01 Discharge ordered by . snw 23:22 Discharged to home ambulatory. mg2 23:22 Condition: stable 23:22 Discharge instructions given to patient, Instructed on discharge instructions, follow up and referral plans. medication usage, Demonstrated understanding of instructions, follow-up care, medications, Prescriptions given X 2. 23:22 Patient left the ED. mg2 Signatures: Dispatcher [employer] EDMS Deborah Ponce FNP-C [employer]-Csnw Reuben Trevizo RN RN mg2 Carri Godwin RN RN ca1 Radha Smith bp1
--- NOTE | 2019-11-14 23:01 | EDPHYS ---
Physician Documentation [facility] Name: Ina Carrillo Age: 79 yrs Sex: Female : 1940 Arrival Date: 11/14/2019 Time: 19:16 Bed 19 Private MD: ED Physician Nicholas Adams HPI: 11/13 23:14 This 79 yrs old Female presents to ER via Ambulatory with complaints of snw Oxygen check?, Went to for covid testing sent her here. 23:14 The patient or guardian reports cough, described as mild, described as moderate, with snw no sputum, had [facility]id swab today at [facility], requested pt be seen to eval SpO2 2nd to hx of COPD. Onset: The symptoms/episode began/occurred suddenly. Associated signs and symptoms: Pertinent positives: chest pain, with cough. Severity of symptoms: At their worst the symptoms were mild moderate. It is unknown whether or not the patient has had similar symptoms in the past. The patient has been recently seen by a physician: the patient's primary care provider, with different complaint(s). Historical: - Allergies: 20:00 No Known Allergies; mg2 - PMHx: 20:00 copd; Hypertension; Hypothyroidism; mg2 - PSHx: 20:00 Appendectomy; Tubal ligation; Hysterectomy; Cholecystectomy; mg2 - Immunization history:: Flu vaccine is up to date. - Social history:: Smoking status: Patient denies any tobacco usage or history of. Patient/guardian denies using alcohol, street drugs, IV drugs. ROS: 23:13 Constitutional: Negative for fever, chills, and weight loss, Eyes: Negative for injury, snw pain, redness, and discharge, ENT: Negative for injury, pain, and discharge, Neck: Negative for injury, pain, and swelling, Abdomen/GI: Negative for abdominal pain, nausea, vomiting, diarrhea, and constipation, Back: Negative for injury and pain, : Negative for injury, bleeding, discharge, and swelling, MS/Extremity: Negative for injury and deformity, Skin: Negative for injury, rash, and discoloration, Neuro: Negative for headache, weakness, numbness, tingling, and seizure. 23:13 Cardiovascular: Positive for chest pain, with cough. 23:13 Respiratory: Positive for cough, with no reported sputum. Exam: 23:13 Constitutional: This is a well developed, well nourished patient who is awake, alert, snw and in no acute distress. Head/Face: Normocephalic, atraumatic. Eyes: Pupils equal round and reactive to light, extra-ocular motions intact. Lids and lashes normal. Conjunctiva and sclera are non-icteric and not injected. Cornea within normal limits. Periorbital areas with no swelling, redness, or edema. ENT: Nares patent. No nasal discharge, no septal abnormalities noted. Tympanic membranes are normal and external auditory canals are clear. Oropharynx with no redness, swelling, or masses, exudates, or evidence of obstruction, uvula midline. Mucous membranes moist. Neck: Trachea midline, no thyromegaly or masses palpated, and no cervical lymphadenopathy. Supple, full range of motion without nuchal rigidity, or vertebral point tenderness. No Meningismus. Chest/axilla: Normal chest wall appearance and motion. Nontender with no deformity. No lesions are appreciated. Cardiovascular: Regular rate and rhythm with a normal S1 and S2. No gallops, murmurs, or rubs. Normal PMI, no JVD. No pulse deficits. Respiratory: Lungs have equal breath sounds bilaterally, clear to auscultation and percussion. No rales, rhonchi or wheezes noted. No increased work of breathing, no retractions or nasal flaring. Abdomen/GI: Soft, non-tender, with normal bowel sounds. No distension or tympany. No guarding or rebound. No evidence of tenderness throughout. Back: No spinal tenderness. No costovertebral tenderness. Full range of motion. Skin: Warm, dry with normal turgor. Normal color with no rashes, no lesions, and no evidence of cellulitis. MS/ Extremity: Pulses equal, no cyanosis. Neurovascular intact. Full, normal range of motion. Neuro: Awake and alert, GCS 15, oriented to person, place, time, and situation. Cranial nerves II-XII grossly intact. Motor strength 5/5 in all extremities. Sensory grossly intact. Cerebellar exam normal. Normal gait. Psych: Awake, alert, with orientation to person, place and time. Behavior, mood, and affect are within normal limits. Vital Signs: 19:56 BP 153 / 69; Pulse 71; Resp 18; Temp 97.6; Pulse Ox 98% on R/A; Weight 81.19 kg; Height mg2 5 ft. 3 in. (160.02 cm); Pain 4/10; 21:05 BP 110 / 56; Pulse 67; Resp 18 S; Pulse Ox 96% on R/A; ca1 22:40 BP 120 / 69; Pulse 71; Resp 18; Pulse Ox 96% on R/A; mg2 19:56 Body Mass Index 31.71 (81.19 kg, 160.02 cm) mg2 MDM: 20:51 Patient medically screened. snw 23:12 Data reviewed: vital signs, nurses notes. Data interpreted: Pulse oximetry: on room air snw is 95 %. Interpretation: acceptable. Counseling: I had a detailed discussion with the patient and/or guardian regarding: the historical points, exam findings, and any diagnostic results supporting the discharge/admit diagnosis, lab results, radiology results, the need for outpatient follow up, to return to the emergency department if symptoms worsen or persist or if there are any questions or concerns that arise at home. Response to treatment: the patient's symptoms have mildly improved after treatment. Special discussion: Based on the patient's history, exam, and Dx evaluation, there is no indication for emergent intervention or inpatient Tx. It is understood by the patient/guardian that if the Sx's persist or worsen they need to return immediately for re-evaluation. Based on the history and exam findings, there is no indication for further emergent testing or inpatient evaluation. I discussed with the patient/guardian the need to see the primary care provider for further evaluation of the symptoms. 11/13 21:08 Order name: CBC with Diff; Complete Time: 22:00 snw 11/13 21:08 Order name: Chem 7; Complete Time: 22:00 snw 11/13 20:34 Order name: Chest Single View XRAY; Complete Time: 21:45 snw 11/13 21:08 Order name: Troponin (emerg Dept Use Only); Complete Time: 22:00 snw 11/13 21:05 Order name: EKG; Complete Time: 21:06 ca1 11/13 21:05 Order name: EKG - Nurse/Tech; Complete Time: 21:06 ca1 Administered Medications: 22:59 Drug: Zithromax 500 mg Route: PO; mg2 23:05 Follow up: Response: No adverse reaction; Medication administered at discharge. mg2 22:59 Drug: predniSONE 20 mg Route: PO; mg2 23:05 Follow up: Response: No adverse reaction; Medication administered at discharge. mg2 Disposition: 11/14 08:51 Co-signature as Attending Physician, Nicholas Adams MD I agree with the assessment and tw4 plan of care. Disposition: 11/14/19 23:01 Discharged to Home. Impression: Pneumonia, unspecified organism. - Condition is Stable. - Discharge Instructions: Chronic Obstructive Pulmonary Disease, Community-Acquired Pneumonia, Adult, Cough, Adult. - Prescriptions for Prednisone 20 mg Oral Tablet - take 1 tablet by ORAL route once daily for 5 days; 5 tablet. Zithromax 500 mg Oral Tablet - take 1 tablet by ORAL route once daily for 5 days; 5 tablet. - Medication Reconciliation Form, Thank You Letter, Antibiotic Education, Prescription Opioid Use form. - Follow up: Emergency Department; When: As needed; Reason: Trouble breathing, Worsening of condition. Follow up: Private Physician; When: Tomorrow; Reason: Recheck today's complaints, Continuance of care, Re-evaluation by your physician. Signatures: Dispatcher [employer] EDMS Deborah Ponce, PLANNER INTERN-C PLANNER INTERN-Csnw Nicholas Adams MD MD tw4 Reuben Trevizo RN RN mg2 Carri Godwin RN RN ca1 Corrections: (The following items were deleted from the chart) 11/13 23:22 23:01 11/14/2019 23:01 Discharged to Home. Impression: Pneumonia, unspecified organism. mg2 Condition is Stable. Forms are Medication Reconciliation Form, Thank You Letter, Antibiotic Education, Prescription Opioid Use. Follow up: Emergency Department; When: As needed; Reason: Trouble breathing, Worsening of condition. Follow up: Private Physician; When: Tomorrow; Reason: Recheck today's complaints, Continuance of care, Re-evaluation by your physician. snw
[2019-11-14 23:30] VITALS: TEMP 97.6
[2019-11-14 23:31] VITALS: O2SAT 96
[2019-11-14 23:32] VITALS: BP 120/69
--- NOTE | 2019-11-16 08:59 | EKG ---
Test Date: 2019-11-14 Test Time: 20:40:53 Audio Recording Engineer: RENEE MEASUREMENT RESULTS: Intervals: Rate: 68 LA: 162 QRSD: 82 QT: 432 QTc: 459 [place]: P: 81 LA: 162 QRS: 28 T: 73 INTERPRETIVE STATEMENTS: Normal sinus rhythm Normal ECG Compared to ECG 01/07/2015 15:47:03 No significant changes Electronically Signed On 11-16-19 08:55:41 CDT by Lino Kim
== END 2019-11-14 23:22 | disposition home or self-care (01) ==
LOC: ER 19:13
DX: J18.9 Pneumonia, unspecified organism (principal)
CPT/HCPCS: 36415; 71045; 80048; 84484; 85025; 93005; 99284; J7512

== ENCOUNTER 2019-11-20 17:25 | Observation (INO) | payer OTHER ==
--- OUTSIDE RECORDS SUMMARY | 2019-11-20 17:28 | XMS REPORT | Clinical Summary ---
:1940 Author Organization [facility] Address [address] [place] [address] Care Team Providers Name Role Phone Merrill [...] A Gastroesophageal DAY. reflux disease with esophagitis sodium chloride 1 appl, TOP, 0 A ctive ([employer] Nasal) 0.65 % BID, PRN as 9 nasal spray needed for dry skin, # 5 gm, 0 Refill(s) bacitracin 500 1 appl, TOP, 0 Ac tive unit/gram ointment TID, Apply a 9 thin layer to affected area, X 7 day, # 30 gm, 0 Refill(s) conjugated estrogens Insert into the 42.5 g [...] (LOPRESSOR) 25 mg TABLET(S) BY 9 019 (Reorder) tablet MOUTH TWICE A DAY. triamcinolone Apply topically 30 g 3 (KENALOG) 0.1 % 2 (two) times a 9 020 ointment day. Prn itch or rash. potassium chloride TAKE ONE (1) 30 tablet 3 Discontinued (KLOR-CON) 10 MEQ CR TABLET(S) BY 9 020 tablet MOUTH ONCE A DAY. venlafaxine 225 MG TAKE ONE (1) 30 each 3 Discontinued tablet extended TABLET(S) BY 9 019 ( Med List release 24hr 24 hr MOUTH ONCE A Cleanup) tabletIndications: DAY. Adjustment reaction, depressive, brief tiZANidine TAKE ONE (1) 50 tablet 5 Discon tinued (ZANAFLEX) 2 MG TABLET(S) BY 9 020 ( Reorder) tabletIndications: MOUTH TWICE A Chronic right DAY NEEDED shoulder pain, Pain SHOULDER PAIN. in both lower extremities rosuvastatin TAKE ONE (1) 30 tablet 3 Disc ontinued (CRESTOR) 10 MG TABLET(S) BY 9 020 tabletIndications: MOUTH ONCE A Multiple-type DAY. hyperlipidemia rosuvastatin TAKE ONE (1) 30 tablet 2 Disc ontinued (CRESTOR) 10 MG TABLET(S) BY 9 019 ( Med List tabletIndications: MOUTH ONCE A Cleanup) Multiple-type DAY. hyperlipidemia pantoprazole TAKE 1 TABLET 30 tablet 0 Dis continued (PROTONIX) 40 MG EC BY MOUTH EVERY 9 020 (Duplicate tablet DAY order) levothyroxine TAKE 1 [...] Encounters Date Type Specialty Care Team Description 11/20/2019 Telephone Consult Internal Medicine Rosalinda, Pneum onia of left lower lobe due to infectious organism (HCC) (Primary Dx); Rocio Momin MD Other chest pa in; Acute midline t horacic back pain; SOB (shortness of breath); Hypotension, un specified hypotension type 11/20/2019 Telephone Internal Medicine Rocio Tellez MD 11/19/2019 Travel 11/18/2019 Telephone Internal Medicine Rocio Tellez MD 11/14/2019 Telephone Family Medicine Rocio Tellez MD 11/11/2019 Telephone Internal Medicine Rocio Tellez MD 11/11/2019 Travel 10/31/2019 Lab Lab Rosalinda, Acute cystitis without hematuria; Rocio Momin MD Hypothyroidism (acquired); Multiple-type h yperlipidemia; Encounter for l rose marie-term (current) use of medications 10/31/2019 Travel 10/21/2019 Refill Family Medicine oRsalinda, Acquired hyp othyroidism; Rocio Momin MD Gastroesophage [...] Rocio Tellez MD 09/01/2019 Refill Internal Medicine Rosalinda, Multiple-t ype hyperlipidemia; Rocio Momin MD Overactive brittney dder 08/19/2019 Telephone Family Medicine Rocio Tellez MD 08/17/2019 Telephone Family Medicine Rocio Tellez MD 08/09/2019 Refill Family Medicine Rosalinda, Acquired hyp othyroidism Rocio Momin MD 08/01/2019 Refill Internal Medicine Rosalinda, Adjustment reaction, depressive, brief; Rocio Momin MD Multiple-type hyperlipidemia; Overactive blad joel 07/06/2019 Refill Family Medicine Rocio Tellez MD 06/20/2019 Refill Family Medicine [place], Acquired hyp othyroidism Rocio Momin MD 06/18/2019 Orders Only Internal Medicine ProviderPriscilla MD 06/14/2019 Refill Family Medicine Rocio Tellez MD 06/07/2019 Refill Internal Medicine [place] Multiple-t ype Rocio Momin MD hyperlipidemia 06/05/2019 Office Visit Internal Medicine Rosalinda, Acute cyst itis without hematuria (Primary Dx); Rocio Momin MD Benign essenti al HTN; Hypothyroidism (acquired); Chronic right s houlder pain; Multiple-type h yperlipidemia; Encounter for l rose marie-term (current) use of medications; Screen for colo n cancer 04/17/2019 Refill Family Medicine Rosalinda, Acquired hyp othyroidism Rocio Momin MD 04/01/2019 Refill Internal Medicine Rocio Tellez MD 03/06/2019 Office Visit Neurology Cole Allison MD Carpal tunnel syndrome of right wrist (Primary Dx); Cervical radicu lopathy; Cervical spinal stenosis; KINSEY (obstructiv e sleep apnea); Memory loss 02/11/2019 Refill Family Medicine Rocio Tellez MD 02/10/2019 Refill Family Medicine [place], Acquired hyp othyroidism Rocio Momin MD 02/04/2019 [...] Medicine Rocio Tellez MD 12/10/2018 Telephone Family Rocio Mueller MD 12/10/2018 Telephone Internal Medicine Jessi Montana MD 12/09/2018 Refill Internal Nikki Tellez Acquired h ypothyroidism Rocio Momin MD 12/04/2018 Refill Internal Medicine Ros[place]inda, Multiple-t ype Rocio Momin MD hyperlipidemia after 11/19/2018 Immunizations Name Administration Dates Next Due FLUZONE [...] Not asked How often do you attend latter day or pentecostalism services? Not as ked Do you belong to any clubs or organizations such as latter day N ot asked groups, unions, fraternal or [...] last month, have you been in contact Unable to assess 11/19/2019 1:58 PM CDT with someone who was confirmed or suspected to have Coronavirus / COVID-19? Last Filed Vital Signs Vital Sign Reading Time Taken Comments Blood Pressure 98/71 11/20/2019 3:48 PM CDT Pulse 59 11/20/2019 3:48 PM CDT Temperature 36.4 C (97.6 F) 11/20/2019 3:48 PM CDT Respiratory Rate 18 09/05/2019 2:13 PM CDT Oxygen Saturation 96% 06/05/2019 4:21 PM MANAGER STRATEGY & ACCOUNT Inhaled Oxygen Concentration - - Weight 81.2 kg (179 lb) 09/05/2019 2:13 PM CDT Height 160 cm (5' 3") 09/05/2019 2:13 PM CDT Body Mass Index 31.71 09/05/2019 2:13 PM CDT Plan of Treatment Date Type Specialty Care Team Description 12/05/2019 Office Visit Internal Medicine Amber Tellez MD [address] [facility] [address] [place] [address] 84 Health Maintenance Due Date Last Done [...] ar e in stenosis the results section. after 11/19/2018 Results Urinalysis, automated with microscopy (10/31/2019 10:28 AM CDT) Color, UA YELLOW YELLOW [facility] [place] Appearance CLEAR CLEAR [facility] [place] Specific gravity, 1.019 1.001 - 1.035 [facility] urine [place] pH, urine < OR = 5.0 5.0 - 8.0 [facility] [place] Glucose, urine NEGATIVE NEGATIVE [facility] [place] Bilirubin, UA NEGATIVE NEGATIVE [facility] [place] Ketones, UA NEGATIVE NEGATIVE [facility] [place] Occult blood, urine NEGATIVE NEGATIVE [facility] [place] Protein, UA NEGATIVE NEGATIVE [facility] [place] Nitrite, UA NEGATIVE NEGATIVE [facility] [place] Leukocyte esterase, TRACE (A) NEGATIVE [facility] UA [place] WBC, UA 0-5 < OR = 5 /HPF [facility] [place] RBC, UA NONE SEEN < OR = 2 /HPF [facility] [place] Squamous epithelial NONE SEEN < OR = 5 /HPF [facility] cells, UA [place] Bacteria, UA NONE SEEN NONE SEEN /HPF [facility] [place] Hyaline casts, UA NONE SEEN NONE SEEN /LPF [facility] [place] Specimen Urine Narrative Performed At FASTING: UNKNOWN [facility] Resulting Agency Comment Performing Organization Information: Site ID: [id number] Address: [address] [place] [phone] Director: Abad Elizalde Performing Organization Address City/State/Zipcode Phone Number [facility] [address] [address] CBC with platelet and differential (10/31/2019 10:28 AM CDT) WBC 6.4 3.8 - 10.8 [facility] Thousand/uL [place] RBC 4.53 3.80 - 5.10 [facility] Million/uL [place] HGB 12.7 11.7 - 15.5 [facility] g/dL [place] HCT 40.3 35.0 - 45.0 % [facility] [place] MCV 89.0 80.0 - 100.0 fL [facility] [place] MCH 28.0 27.0 - 33.0 pg [facility] [place] MCHC 31.5 (L) 32.0 - 36.0 [facility] g/dL [place] RDW 14.3 11.0 - 15.0 % [facility] [place] Platelet count 296 140 - 400 [facility] Thousand/uL [place] MPV 12.0 7.5 - 12.5 fL [facility] [place] Neutrophils, absolute 3,565 1,500 - 7,800 [facility] cells/uL [place] Lymphocytes, absolute 1,882 850 - 3,900 [facility] cells/uL [place] Monocytes, absolute 595 200 - 950 [facility] cells/uL [place] Eosinophils, absolute 288 15 - 500 [facility] cells/uL [place] Basophils, absolute 70 0 - 200 [facility] cells/uL [place] Neutrophils 55.7 % [facility] [place] Lymphocytes 29.4 % [facility] [place] Monocytes 9.3 % [facility] [place] Eosinophils 4.5 % [facility] [place] Basophils + RC 1.1 % [facility] [place] Specimen Narrative Performed At FASTING: UNKNOWN [facility] Comment Performing Organization Information: Site ID: [id number] Address: [address] [place] [phone] Director: Abad Elizalde Performing Organization Address City/State/Zipcode Phone Number [facility] [address] [address] Urine culture (10/31/2019 10:28 AM CDT) Pathologist Sig nature Urine culture SEE NOTE [facility] Comment: [place] CULTURE, URINE, ROUTINE Micro Number: [id number] Test Status: Final Specimen Source: URINE Specimen Quality: Adequate Result: No Growth Specimen Narrative Performed At FASTING: UNKNOWN [facility] Agency Comment Performing Organization Information: Site ID: [id number] Address: [address] [place] [phone] Director: Abad Elizalde Performing Organization Address City/State/Zipcode Phone Number [facility] [address] [address] Thyroid stimulating hormone (10/31/2019 10:28 AM CDT) Pathologist Sig nature TSH 2.55 0.40 - 4.50 mIU/L [facility] [employer] [facility] ON Specimen Narrative Performed At FASTING: UNKNOWN [facility] Resulting Agency Comment Performing Organization Information: Site ID: [facility]: [facility] Address: [address] [place] [phone] Director: Abad Elizalde Performing Organization Address [facility]/Zipcode Phone Number [facility] [address] [address] T4, free (10/31/2019 10:28 AM CDT) Pathologist Sig nature T4, free 1.1 0.8 - 1.8 ng/dL [facility] [place] Specimen Narrative Performed At FASTING: UNKNOWN [facility] Comment Performing Organization Information: Site ID: [facility]: [facility] Address: [address] [place] [phone] Director: Abad Elizalde Performing Organization Address [facility] Phone Number [facility] [address] [phone] Hemoglobin A1c (10/31/2019 10:28 AM CDT) Hemoglobin A1C 6.0 (H) <5.7 % of [facility] Comment: total Hgb [place] For someone without known diabetes, a hemoglobin [...] Performing Organization Information: Site ID: [facility]GA [facility]: [facility] Address: [address] [place] [phone] Director: Abad Elizalde Performing Organization Address [facility] Phone Number [facility] [address] [phone] Lipid panel (10/31/2019 10:28 AM CDT) Cholesterol, total 144 <200 mg/dL [facility] HDL cholesterol 55 > OR = 50 [facility] mg/dL [place] Triglycerides 149 <150 mg/dL [facility] [place] LDL cholesterol 66 mg/dL (calc) [facility] calculated Comment: [place] Reference range: <100 Desirable range <100 mg/dL for primary prevention; <70 mg/dL for patients with CHD or diabetic patients with > or = 2 CHD risk factors. LDL-C is now calculated using the Celia calculation, which is a validated novel method providi ng better accuracy than the Friedewald equation in the estimation of LDL-C. Romeo SS et al. [place]. 2013;310(19): 8198-5016 (http://education.[facility].com/faq/WCX066) Cholesterol/HDL 2.6 <5.0 (calc) [facility] ratio [place] Non-HDL cholesterol 89 <130 mg/dL [facility] Comment: (calc) [place] For patients with diabetes plus 1 major ASCVD risk factor, treating to a non-HDL-C goal of <100 mg/dL (LDL-C of <70 mg/dL) is considered a therapeutic option. Specimen Narrative Performed At FASTING: UNKNOWN [facility] Resulting Agency Comment Performing Organization Information: Site ID: [facility] Name: [facility] Address: [address] [place] [address] Director: Abad Elizalde Performing Organization Address City/State/Zipcode Phone Number [place] [facility] [address] [address] Comprehensive metabolic panel (10/31/2019 10:28 AM CDT) Glucose 104 (H) 65 - 99 [facility] Comment: mg/dL [place] Fasting reference interval For someone without known diabetes, a glucose value between 100 and 125 mg/dL is consistent with prediabetes and should be confirmed with a follow-up test. BUN 21 7 - 25 mg/dL [facility] [place] Creatinine 0.86 0.60 - 0.88 [facility] Comment: mg/dL [place] For patients >49 years of age, the reference limit for Creatinine is approximately 13% higher for people identified as -[place]. EGFR Non-Afr. 64 > OR = 60 [facility] [place] mL/min/1.73m [place] 2 EGFR 74 > OR = 60 [facility] [place] mL/min/1.73m [place] 2 BUN/creatinine NOT APPLICABLE 6 - 22 [facility] ratio (calc) [place] Sodium 141 135 - 146 [facility] mmol/L [place] Potassium 4.3 3.5 - 5.3 [facility] mmol/L [place] Chloride 104 98 - 110 [facility] mmol/L [place] CO2 26 20 - 32 [facility] mmol/L [place] Calcium 9.2 8.6 - 10.4 [facility] mg/dL [place] Protein 6.8 6.1 - 8.1 [facility] g/dL [place] Albumin, S 4.0 3.6 - 5.1 [facility] g/dL [place] Globulin, total 2.8 1.9 - 3.7 [facility] g/dL (calc) [place] Albumin/globulin 1.4 1.0 - 2.5 [facility] ratio (calc) [place] Total bilirubin 0.4 0.2 - 1.2 [facility] mg/dL [place] Alkaline 63 37 - 153 U/L [facility] phosphatase [place] AST 20 10 - 35 U/L [facility] [place] ALT 19 6 - 29 U/L [facility] [place] Specimen Narrative Performed At FASTING: UNKNOWN [facility]ing Agency Comment Performing Organization Information: Site ID: RGA Name: [facility] Address: [address] [place] [address] Director: Abad Elizalde Performing Organization Address City/State/Zipcode Phone Number [facility] [place] [address] [place] [address] Consult Gynecology (06/18/2019) Narrative Performed At [...] or without a myelogram can be performed. [id number] Procedure Note Hm Interface, Radiology Results Incoming [...] or without a myelogram can be performed. 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
--- OUTSIDE RECORDS SUMMARY | 2019-11-20 17:29 | XMS REPORT | Continuity of Care Document ---
:1940 Author Organization [facility] Care Team Providers Name Role Phone [facility] Unavailable Un available Problems Problem Status Onset Classification Date Comments Sourc e Date Reported S/P Active [facility] FALL-ORBITAL 9 Medical FLOOR FX Center Medications Medication Details Route Status Patient Ordering Order Source Instructions Provider Date Acetaminophen Notes: [place] not [place] 019 [place] 4 gm/day. Center (Same as: Tylenol) Bacitracin 0.5 1 appl, Active [facility] UNT/MG Topical TOP, TID, 019 Medical Ointment Apply a Center thin layer to affected area, X 7 day, # 30 gm, 0 Refill(s) [place] Nasal 1 appl, Active [facility] Moisturizer TOP, BID, 019 Medical topical gel PRN as Center needed for dry skin, # 5 gm, 0 Refill(s) Morphine 2 mg, Inactive [facility] Route: IVP, 019 Medical ONCE, Center [...] Range BLOOD BANK ABO/Rh A POS 12/07 [facility] RESULTS /2018 [facility] Center BLOOD BANK Antibody Negative 12/07 [facility] RESULTS Scrn (12/07/18 1:39 AM) /2018 [facility] Center CARDIAC Troponin-I <0.02 0.00 - 12/07 [facility] ENZYMES 0.40 /2018 [facility] ELECTROLYTES AGAP 11.3 10.0 - 12/07 [place] 20.0 [facility] ELECTROLYTES Creatinine 0.92 0.50 - 12/07 [facility] [place] Lvl 1.40 [facility] ELECTROLYTES Sodium Lvl 138 135 - 145 12/07 [place] [facility] ELECTROLYTES BUN 21 7 - 22 12/07 [facility] ELECTROLYTES Potassium 4.3 3.5 - 5.1 12/07 [place] L[place] [facility] ELECTROLYTES Chloride Lvl 105 95 - 109 12/07 [place] [facility] ELECTROLYTES CO2 26 24 - 32 12/07 [facility] ELECTROLYTES Calcium Lvl 9.1 8.5 - 10.5 12/07 [place] [facility] ELECTROLYTES eGFR 59 12/07 Result [...] Glucose Lvl 130 70 - 99 12/07 [facility] HEMATOLOGY Segs 77.4 45.0 - 12/07 [facility] 75.0 [facility] HEMATOLOGY Lymphocytes 14.6 20.0 - 12/07 [place] 40.0 [facility] HEMATOLOGY Basophils # 0.1 0.0 - 0.2 12/07 s [facility] HEMATOLOGY Eosinophils 0.1 0.0 - 0.5 12/07 [facility] HEMATOLOGY Monocytes # 0.7 0.0 - 0.8 12/07 [facility] HEMATOLOGY Eosinophils 1.3 0.0 - 4.0 12/07 [facility] HEMATOLOGY Monocytes 6.0 2.0 - 12.0 12/07 [facility] HEMATOLOGY Neutrophils 8.9 1.5 - 8.1 12/07 [place] [facility] HEMATOLOGY Basophils 0.7 0.0 - 1.0 12/07 [facility] HEMATOLOGY Lymphocytes 1.7 1.0 - 5.5 12/07 [place] [facility] HEMATOLOGY Estimated % 0.0 0.0 - 7.5 12/07 [place] [facility] HEMATOLOGY G-value 8.7 5.0 - 11.6 12/07 Result Comment: Medical "Corrected Center Report was called to Chandrika Batista_at 12/07/2018 02:30__by stp__.Read Back OK." HEMATOLOGY Max 63 52 - 71 12/07 Result Comment: see [facility] HEMATOLOGY [place] 0.5 12/07 Result Comment: see [facility] HEMATOLOGY R-time Rapid 0.6 0.4 - 0.7 12/07 Result Comment: see [facility] HEMATOLOGY K-time Rapid 1.5 0.6 - 2.3 12/07 Result Comment: see [facility] HEMATOLOGY Angle Rapid 73 64 - 80 12/07 Result Comment: see [facility] HEMATOLOGY ACT (TEG) 105 86 - 118 12/07 Result Comment: Medical "Corrected Center Report was called to Chandrika Batista at 12/07/2018 02:24_by stp..Read Back OK." HEMATOLOGY PT 12.8 12.0 - 12/07 14. [facility] HEMATOLOGY INR 0.98 0.85 - 12/07 1. [facility] HEMATOLOGY Platelet 242 133 - 450 12/07 [facility] HEMATOLOGY RDW 14.3 11.5 - 12/07 14. [facility] HEMATOLOGY MCHC 33.4 32.0 - 12/07 36.0 [facility] HEMATOLOGY MCH 29.8 27.0 - 12/07 31.0 [facility] HEMATOLOGY MCV 89.0 80.0 - 12/07 98.0 [facility] HEMATOLOGY Hct 37.5 36.0 - 12/07 [place] 48.0 [facility] HEMATOLOGY RBC 4.21 4.20 - 12/07 [facility] 5.40 /2018 [facility] HEMATOLOGY Hgb 12.5 12.0 - 12/07 [facility] 16.0 [facility] HEMATOLOGY WBC 11.5 3.7 - 10.4 12/07 [facility]2018 [facility] HEMATOLOGY MPV 8.7 7.4 - 10.4 12/07 [facility]2018 [facility] HEMATOLOGY PTT 29.9 22.9 - 12/07 [facility] 35.8 /2018 [facility] Pathology Reports No Data Provided for This Section Diagnostic Reports Report Value Date Source Brain-Outside EXAM: Brain-Outside Consult CT 12/07/2018 Efrem Vasquez [place] [facility] DATE: 12/06/2018 20:44 CDT [...] EXAM: CT FACIAL BONES OUTSIDE CONSULTATION 12/07 [facility] Medical Consult CT DATE: 12/07/2018 1:45 CDT Center INDICATION: Second interpret ation of outside CT performed on trauma transfer patient. COMPARISON: None. TECHNIQUE: Axial and coronal images of the facial bones without contrast. Images are provided in only bone algorithm. IV contrast: None. OUTSIDE REPORT: from [facility] * Comminuted nasal bone fracture. * [...] DX EXAM: XR CHEST 2 VIEWS 12/07/2018 [facility] DATE: 12/07/2018 0605 hours Cente r INDICATION: [...] Comments Source Systolic (mm Hg) 156 12/07/2018 [facility] Diastolic (mm Hg) 67 12/07/2018 [facility] Temperature Oral (F) 98.5 F 12/07/2018 [facility] Respitory Rate 18 12/07/2018 [facility] Systolic (mm Hg) 151 12/07/2018 [facility] Diastolic (mm Hg) 68 12/07/2018 [facility] Respitory Rate 18 12/07/2018 [facility] Respitory Rate 18 12/07/2018 [facility] Systolic (mm Hg) 164 12/07/2018 [facility] Diastolic (mm Hg) 71 12/07/2018 [facility] Temperature Oral (F) 98.2 F 12/07/2018 [facility] Heart Rate 76 12/07/2018 [facility] Weight 77.273 12/07/2018 [facility] BMI Calculated 31.16 12/07/2018 [facility] Height 157.48 cm 12/07/2018 [facility] Temperature Oral (F) 97.6 F 12/07/2018 [facility] Heart Rate 74 12/07/2018 [facility] Encounters Location Location Encounter Encounter Reason Attending ADM DC Stat us Source Details Type Number For Provider Date Date [facility] [id number] [place] 12/07 12/07 [facility] Procedures No Data Provided for This Section Assessment and Plan Assessment and Plan Date Source Extracted from:Title: Ophthalmology Consult Note 12/07/2018 [facility] Author: Krzysztof Munoz MD Date: 12/07/18 Ophthalmology Consultation Note Patient Name: Ina Carrillo MR#: [id number] Room: ED Requesting Team: ED Date of [...] with phenylephrine 2.5% and tropicamide 1% @800) (66104) Right: OPTIC NERVE: pink, healthy nerve C:D [...] call for a follow-up appointment at the [facility] with Dr. Flores in 2-4 weeks. (Located: [address] [place] [address], 18th floor; Appt #: [phone]) Please call if any changes develop. Krzysztof Munoz M.D. [facility] Ophthalmology PGY-2 I personally examined this patient, care fully reviewed the medical record, discussed the case with the resident, and agree with the assessment and plan. Jhon Flores M.D. Plan of Care No Data Provided for This Section Social History Social History Date Source Social History TypeResponse 12/07/2018 [facility] Smoking Status Never smoker; Exposure to Tobacco Smoke None; Cigarette Smoking Last 365 Days No; Reg Smoking Cessation Counseling No entered on: 12/07/18 Family History No Data Provided for This Section Advance Directives No Data Provided for This Section Functional Status No Data Provided for This Section
--- OUTSIDE RECORDS SUMMARY | 2019-11-20 17:30 | XMS REPORT | Continuity of Care Document ---
:1940 Author Organization [facility] t Address [address] [place] [address] Care Team Providers Name Role Phone Sonja ANDERSON, F. Primary Care Physician Sonja ANDERSON, F. Attending Clinician Provider Attending Clinician Estefany ANDERSON Attending Clinician Nan ANDERSON Attending Clinician Karishma Attending Clinician Laci Coe Admitting Clinician Payers Payer Name Policy Policy Number Effective Expiration Source Type Date Date MEDICAREMEDICARE PART xxxxxxxxxxx 2004 Justyn Ireland AND 00:00:00 [facility] Bxxxxxxxxxxx9- [facility] MEMedicare COMMERCIAL MISCMISC xxxxxxx 2018 [place] COMMERCIALxxxxxxx1 00:00:00 Met mike 2018-Commercia l Problems Condition Condition Condition Status Onset Resolution Last Treating Co mments Source Name Details Category Date Date Treatment Clinician Date S/P Diagnosis Active 2019-02-27 Mem oria FALL-ORBIT - 09:25:00 l AL FLOOR S/P 00:00: [place] FX FALL-ORBIT 00 AL FLOOR FX Active 9 [facility] GERD GERD Disease Active [place] (gastroeso (gastroeso 5-06 Me thodi phageal phageal 00:00: st reflux reflux 00 disease) disease) Benign Benign Disease Active [place] essential essential 09-17 Meth karla HTN HTN 00:00: st 00 Overactive Overactive Disease Active [facility] bladder bladder 09-17 Methodi 00:00: st 00 Chest pain Chest pain Disease Active [place] 09-17 Methodi 00:00: st 00 Shortness Shortness Disease Active Jerry ston of breath of breath 09-17 Meth karla 00:00: st 00 Gastric Gastric Disease Active [place] catarrh catarrh 09-17 Methodi 00:00: st 00 Hiatal Hiatal Disease Active [place] hernia hernia 09-17 Methodi 00:00: st 00 Hypothyroi Hypothyroi Disease Active [facility] dism dism 09-17 Methodi 00:00: st 00 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 09-17 Me thodi 00:00: st 00 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 09-17 Methodi disturbanc disturbanc 00:00: st e e 00 Peripheral Peripheral Disease Active [facility] blood blood 09-17 Methodi vessel vessel 00:00: st disorder disorder 00 Syncope Syncope Disease Active [place] and and 09-17 Methodi collapse collapse 00:00: st 00 Multiple-t Multiple-t Disease Active H [place] ype ype 09-17 Methodi hyperlipid hyperlipid 00:00: st emia emia 00 Urinary Urinary Disease Active [place] tract tract 09-17 Methodi infection infection 00:00: st 00 Allergies, Adverse Reactions, Alerts Allergy Allergy Status Severity Reaction(s) Onset Inactive Treating Comm ents Source Name Type Date Date Clinician Pneumoco Propensi Active Severe [place] c[place] ty to 9-10 local Methodi 23-Grazyna adverse 00:00: reaction. st Ps reaction 00 Vaccine s to drug Sulfa Propensi Active [place] (Sulfona ty to 06 Methodi mide adverse 00:00: st Antibiot reaction 00 ics) s to drug No Known No Known Active Memori a [facility] Medicati l on on [place] s s Family History Family Member Diagnosis Comments Start Date Stop Date Source Natural child Diabetes [place] [facility] Natural child Seizures [place] [facility] Natural child Thyroid disease [place] [facility] Natural father Cancer [place] [facility] Natural mother Dementia [place] [facility] Social History Social Habit Start Date Stop Date Quantity Comments Source History SDOH Social [place] Connections Phone Methodi st History SDOH Social [place] [facility]ctions Get [facility] Together History SDOH Social [place] [facility] Method ist History SDOH Social [place] [facility] Advent[facility] Membership History SDOH Social [place] [facility] Meetings Sex Assigned At [place] [facility] Exposure to Unable to assess [place] SARS-CoV-2 (event) Method ist Alcohol intake 2019-11-20 2019-11-20 Current [place] 00:00:00 00:00:00 non-drinker of Adventism alcohol (finding) History SDOH Social 2018-04-25 2018-04-25 4 [place] [facility] Living 00:00:00 00:00:00 Method ist History [facility] 2018-04-25 2018-04-25 2 [place] Transport Med 00:00:00 00:00:00 Adventism History [facility] 2018-04-25 2018-04-25 2 [place] [facility] Non-Med 00:00:00 00:00:[address] Tobacco Comment 2017-09-20 2017-09-20 Committed to [place] 00:00:00 00:00:00 continued [facility]ism cessation. History of tobacco 1984-05-15 Current smoker Justyn rene use 00:00:00 [facility] Smoking Status Start Date Stop Date Source Former smoker 2019-11-20 00:00:00 2019-11-20 00:00:00 [place] [facility] Social History [facility] Medications Ordered Filled Start Stop Current Ordering Indication Dosage Frequency Signature Comments Components Source Medication Medication Date Date Medication? Clinician (SIG) Name Name aspirin 325 Yes TAKE 1 [place] MG tablet 708 TABLET BY Metho di 16:01: MOUTH st 47 EVERY DAY WITH FOOD fluticasone Yes 1{puff} QD Inhale 1 [place] -umeclidin- 7-08 puff every Me thodi vilanter 16:01: morning. st 100-62.5-25 47 mcg blister with device levothyroxi Yes Acquired TAKE ONE [place] ne 6-08 hypothyroid (1) Methodi (SYNTHROID) 00:00: ism TABLET(S) s t 50 mcg 00 BY MOUTH tablet EVERY MORNING. pantoprazol 2020-0 Yes Gastroesoph TAKE ONE Araya e 6-08 ageal (1) Methodi (PROTONIX) 00:00: reflux TABLET(S) st 40 MG EC 00 disease BY MOUTH tablet with ONCE A esophagitis DAY. rosuvastati 2020-0 Yes Multiple-ty TAKE ONE Araya n (CRESTOR) 5-22 pe (1) Methodi 10 mg 00:00: hyperlipide TABLET(S) st tablet 00 lucía BY MOUTH ONCE A DAY. cephalexin 2020-0 2020- No 500mg Q.25D Take 500 Araya (KEFLEX) 4-23 04-23 mg by Methodi 500 MG 14:12: 00:[address] capsule 28 :00 (four) times a day. umeclidiniu 2020-0 2020- No Inhale. [place] m (INCRUSE - 02-23 Methodi ELLIPTA) 14:10: 00:00 st 62.5 22 :00 mcg/actuati on blister with device tiotropium 2019-0 2020- No Inhale. Jerry ston bromide 09-04- Methodi (SPIRIVA 14:10: 00:00 st RESPIMAT) 09 :00 2.5 mcg/actuati on mist conjugated 2019-0 Yes Overactive .5g QD Insert 0.5 Araya estrogens - bladder g into the M ethodi (PREMARIN) 00:00: vagina st 0.625 00 nightly as mg/gram needed vaginal (irritatio cream n). Premarin 0.625 mg/gram vaginal cream furosemide 2020-0 Yes Benign 40mg QD Take 1 Jerry ston (LASIX) 40 4-23 essential tablet (40 Methodi mg tablet 00:00: HTN mg total) st 00 by mouth daily. sucralfate 2020-0 Yes Gastroesoph TAKE ONE Araya (CARAFATE) 4-23 ageal (1) Methodi 1 gram 00:00: reflux TABLET(S) st tablet 00 disease BY MOUTH with FOUR TIMES esophagitis A DAY. Myrbetriq 2020-0 Yes Overactive 50mg QD Take 1 Araya 50 mg 4-23 bladder tablet (50 Metho di tablet 00:00: mg total) st extended 00 by mouth release 24 daily. hr tiZANidine 2020-0 Yes Pain in TAKE ONE [place] (ZANAFLEX) 09-04 both lower (1) Met hodi 2 MG tablet 00:00: extremities TABLET(S) st 00 BY MOUTH TWICE A DAY NEEDED SHOULDER PAIN. venlafaxine Yes Adjustment 225mg QD Take 1 Araya 225 MG 09-04 reaction, tablet Method i [...] 2019- No Gastroesoph 40mg QD Take 1 [place] e 09-04 ageal tablet (40 Methodi (PROTONIX) 00:00: 00:00 reflux mg total) st 40 MG EC 00 :00 disease by mouth tablet with daily. esophagitis levothyroxi 2019- No Acquired 50ug QD Take 1 [place] ne 09-04 hypothyroid tablet (50 M ethodi (SYNTHROID) 00:00: 00:00 ism mcg total) st 50 mcg 00 :00 by mouth tablet every morning for 90 days. rosuvastati 2019- No Multiple-ty 10mg QD Take 1 [place] n (CRESTOR) 09-04 05-22 pe tablet (10 M ethodi 10 MG 00:00: 19:06 hyperlipide mg total) st tablet 00 :20 lucía by mouth daily. potassium 2019- No TAKE ONE Jerry ston chloride 09-01 (1) Methodi (KLOR-CON) 00:00: 00:00 TABLET(S) s t 10 MEQ CR 00 :00 BY MOUTH tablet ONCE A DAY. rosuvastati 2019-2019- No Multiple-ty TAKE ONE [place] n (CRESTOR) 09-01-23 pe (1) Methodi 10 [...] levothyroxi 2019-0 2020- No Acquired TAKE ONE Araya ne 3- 04-23 hypothyroid (1) Methodi (SYNTHROID) 00:00: 00:00 ism TABLET(S) st 50 mcg 00 :00 BY MOUTH tablet EVERY MORNING. venlafaxine 2019-0 2020- No Adjustment TAKE ONE Araya 225 MG 3-31 08-23 reaction, (1) Methodi tablet 00:00: 00:00 depressive, TABLET(S) st extended 00 :00 brief BY MOUTH release ONCE A 24hr 24 hr DAY. tablet rosuvastati 2019-0 2020- No Multiple-ty TAKE ONE Araya n (CRESTOR) 3-19 04-20 pe (1) Methodi 10 MG 00:00: 00:00 hyperlipide TABLET(S) st tablet 00 :00 lucía BY MOUTH ONCE A DAY. MYRBETRIQ 2019-0 2020- No Overactive TAKE ONE Araya 50 mg 3-19 04-20 bladder (1) Methodi tablet 00:00: 00:00 TABLET(S) st extended 00 :00 BY MOUTH release 24 ONCE A hr DAY. sucralfate 2019-0 2020- No TAKE ONE Justyn rene (CARAFATE) 2- 04-23 (1) Methodi 1 gram 00:00: 00:00 TABLET(S) st tablet 00 :00 BY MOUTH FOUR TIMES A DAY. levothyroxi 2020-0 2020- No Acquired TAKE ONE [place] ne 2-11 14-27 hypothyroid (1) Methodi (SYNTHROID) 00:00: 00:00 ism TABLET(S) st 50 mcg 00 :00 BY MOUTH tablet EVERY MORNING. pantoprazol 2019-0 2020- No [facility] 1[facility] 08-27 (1) Methodi (PROTONIX) 00:00: 00:00 TABLET(S) [...] hematuria every vaginal other day. cream metoprolol 2019- Benign TAKE ONE [place] tartrate 06-05 essential (1) Metho di (LOPRESSOR) 00:00: 00:00 HTN TABLET(S) st 25 mg 00 :00 BY MOUTH tablet TWICE A DAY. acetaminoph 2019- chronic 1{tbl} Q4H Take 1 [place] en-codeine 06-05 pain tablet by [facility] (TYLENOL 00:00: 23:[address] WITH 00 :00 every 4 CODEINE #3) (four) 300-30 mg hours as per tablet needed for moderate pain for up to 10 days .chronic pain. levothyroxi 2018-05- Acquired TAKE ONE [place] ne 06-19 hypothyroid (1) Methodi (SYNTHROID) 00:00: [...] DAYS. MYRBETRIQ 2019- No Overactive TAKE ONE [place] 50 mg 12-18 bladder (1) Methodi tablet 00:00: 00:00 TABLET(S) st extended 00 :00 BY MOUTH release 24 ONCE A hr DAY. metoprolol 2019- Benign TAKE ONE [place] tartrate 12-18 essential (1) Metho di (LOPRESSOR) 00:00: 00:00 HTN TABLET(S) st 25 mg 00 :00 BY MOUTH tablet TWICE A DAY. acetaminoph 2018- No Orbital 1{tbl} Q4H Take 1 [place] en-codeine 12-18 fracture, tablet by Methodi (TYLENOL [...] EC 00 :00 EVERY DAY tablet levothyroxi 2019- No Acquired TAKE 1 Araya ne 12-09 hypothyroid TABLET IN Pr thodi (SYNTHROID, 00:00: 00:[address] LEVOXYL) 50 00 :00 MORNING mcg tablet metoprolol 2018- No TAKE 1 [place] tartrate 12-09 TABLET BY Gab little (LOPRESSOR) 00:00: 00:[address] 25 mg 00 :00 TWICE A tablet DAY Acetaminoph No Notes: Do M emoria en 12-07 not exceed l 16:37: 4 gm/day. [place] (Same as: Tylenol) Bacitracin Yes 1 appl, Chava natividad 0.5 UNT/MG 12-07 TOP, TID, l Topical 14:03: Apply a [place] Ointment 00 thin layer to affected area, X 7 day, # 30 gm, 0 Refill(s) [place] Nasal Yes 1 appl, Mem oria Moisturizer 12-07 TOP, BID, l topical gel 14:03: PRN as Herm shanice needed for dry skin, # 5 gm, 0 Refill(s) Morphine No 2 mg, Memoria 12-07 Route: l 10:51: IVP, ONCE, [place] 00 Dosing Weight 77.273, kg, Priority: STAT, Start date: 12/07/18 5:51:00 CDT, Stop date: 12/07/18 5:51:00 CDT sodium Yes 1 appl, Araya chloride 12-07 TOP, BID, Method i (Sear[place] 00:00: PRN as st Nasal) 0.65 00 needed for % nasal dry skin, spray # 5 gm, 0 Refill(s) bacitracin Yes 1 appl, [place] 500 12-07 TOP, TID, Methodi unit/gram 00:00: Apply a st ointment 00 thin layer to affected area, X 7 day, # 30 gm, 0 Refill(s) rosuvastati 2019- No Multiple-ty TAKE ONE Araya n (CRESTOR) 12-04 08 pe (1) Methodi 10 MG 00:00: 00:00 hyperlipide TABLET(S) st tablet 00 :00 lucía BY MOUTH ONCE A DAY. rosuvastati 2019- No Multiple-ty TAKE ONE Araya n (CRESTOR) 11-13 pe (1) Methodi 10 MG 00:00: 00:00 hyperlipide TABLET(S) st tablet 00 :00 lucía BY MOUTH ONCE A DAY. tiZANidine 2019- No Pain in TAKE ONE Araya (ZANAFLEX) 10-05 both lower (1) Me thodi 2 MG tablet 00:00: 00:00 extremities TABLET(S) st 00 :00 BY MOUTH TWICE A DAY NEEDED SHOULDER PAIN. venlafaxine 2018- No Adjustment TAKE ONE [place] 225 MG 10-04 reaction, (1) Methodi tablet 00:00: 00:00 depressive, TABLET(S) st extended 00 :00 brief BY MOUTH release ONCE A 24hr 24 hr DAY. tablet potassium 2019- No TAKE ONE Jerry ston chloride 09-2920 (1) Methodi (KLOR-CON) 00:00: 00:00 TABLET(S) s t 10 MEQ CR 00 :00 BY MOUTH tablet ONCE A DAY. triamcinolo 2019- No Q.5D Apply [facility] 09-18 05- topically Methodi (KENALOG) 00:00: 23:59 2 (two) st 0.1 % 00 :00 times a ointment day. Prn itch or rash. metoprolol 2018- No TAKE ONE Just[place] tartrate 09-13 (1) Methodi (LOPRESSOR) 00:00: 00:00 TABLET(S) st 25 mg 00 :00 BY MOUTH tablet TWICE A DAY. furosemide 2018- No TAKE ONE [place] (LASIX) 40 08-11 (1) Methodi mg tablet 00:00: 07:15 TABLET(S) st 00 :29 BY MOUTH ONCE A DAY. levothyroxi 2018- No Acquired TAKE ONE [place] ne 08-11 hypothyroid (1) Methodi (SYNTHROID, 00:00: 00:00 ism TABLET(S) st LEVOXYL) 50 00 :00 BY MOUTH mcg tablet EVERY MORNING. pantoprazol 2018- No TAKE ONE [place] e 08-07 (1) Methodi (PROTONIX) 00:00: 00:00 TABLET(S) s t 40 MG EC 00 :00 BY MOUTH tablet ONCE A DAY. venlafaxine 2019- No Adjustment TAKE ONE Araya 225 MG 08-05 03-19 reaction, (1) Methodi tablet 00:00: 00:00 depressive, TABLET(S) st extended 00 :00 brief BY MOUTH release ONCE A 24hr 24 hr DAY. tablet metoprolol 2018- No TAKE ONE [place] tartrate 07-18 (1) Methodi (LOPRESSOR) 00:00: 00:00 TABLET(S) st 25 mg 00 :00 BY MOUTH tablet TWICE A DAY. KLOR-CON 10 2017-05- No TAKE ONE [place] 10 mEq CR 1- 1118 (1) Methodi tablet 00:00: 00:00 TABLET(S) st 00 :00 BY MOUTH ONCE A DAY. MYRBETRIQ 2018- Overactive TAKE ONE Araya 50 mg 09-13 bladder (1) Methodi tablet 00:00: 00:00 TABLET(S) st extended 00 :00 BY MOUTH release 24 ONCE A hr DAY. fluticasone 2016-05- Bronchitis, QD Inhale 1 Araya -vilanterol 1 02-23 mucopurulen inhalation Methodi (BREO 00:00: 00:00 t recurrent s once st ELLIPTA) 00 :00 (HCC) daily. 100-25 mcg/dose blister with device powder for inhalation sucralfate 2016-05- TAKE ONE [place] (CARAFATE) 0-25 06-05 (1) Methodi 1 gram 00:00: 00:00 TABLET(S) st tablet 00 :00 BY MOUTH FOUR TIMES A DAY. rosuvastati 2019- TAKE ONE [place] (CRESTOR) 9-20 - (1) Methodi 10 MG 00:00: 00:00 TABLET(S) st tablet 00 :00 BY MOUTH ONCE A DAY. metoprolol 2018- Benign TAKE ONE Araya tartrate 08-10- essential (1) Metho di (LOPRESSOR) 00:00: 00:00 HTN TABLET(S) st 25 mg 00 :00 BY MOUTH tablet TWICE A DAY. conjugated 2019- No QD Insert [place] estrogens 09-17- into the Metho di (PREMARIN) 00:00: 00:[address] vaginal 00 :00 daily. cream Premarin 0.625 mg/gram vaginal cream Immunizations Ordered Immunization Filled Immunization Date Status Commen ts Source Name Name Influenza, 2019-04-28 Completed [place] Unspecified 00:00:00 [facility] FLUZONE HIGH-DOSE PF 2018-01-18 Completed [place] 00:00:00 [facility] Pneumococcal 2018-01-18 Completed [place] Polysaccharide 00:00:00 [facility] Pneumococcal 2017-04-17 Completed [place] Conjugate 13-Valent 00:00:00 Metho dist Influenza, 2017-02-09 Completed [place] Unspecified 00:00:00 [facility] Pneumococcal 2016-03-14 Completed [place] Conjugate 13-Valent 00:00:00 Metho dist FLUZONE HIGH-DOSE PF 2016-02-16 Completed [place] 00:00:00 [facility] Td, Unspecified 2013-11-17 Completed [place] 00:00:00 [facility] Zoster 2013-02-12 Completed [place] 00:00:00 [facility] Vital Signs Vital Name Observation Time Observation Value Comments Source Systolic blood 2019-11-20 15:48:00 98 mm[Hg] [place] [facility] pressure Diastolic blood 2019-11-20 15:48:00 71 mm[Hg] [place] [facility] pressure Heart rate 2019-11-20 15:48:00 59 /min [place] [facility] Body temperature 2019-11-20 15:48:00 36.44 [place] [facility] Respiratory rate 2019-09-05 14:13:00 18 /min [place] [facility] Body height 2019-09-05 14:13:00 160 cm [place] [facility] Body weight 2019-09-05 14:13:00 81.194 kg [place] [facility] BMI 2019-09-05 14:13:00 31.71 kg/m2 [place] [facility] Oxygen saturation in 2019-06-05 16:21:00 96 /min Araya [facility] Arterial blood by Pulse oximetry Systolic (mm Hg) 2018-12-07 17:38:00 Chava rial [place] Diastolic (mm Hg) 2018-12-07 17:38:00 Mem orial [place] Temperature Oral (F) 2018-12-07 17:38:00 98.5 F [facility] [place] Respitory Rate 2018-12-07 17:38:00 Memori al [place] Systolic (mm Hg) 2018-12-07 10:00:00 Chava rial [place] Diastolic (mm Hg) 2018-12-07 10:00:00 Mem orial [place] Respitory Rate 2018-12-07 10:00:00 Memori al [place] Respitory Rate 2018-12-07 08:25:00 Memori al [place] Systolic (mm Hg) 2018-12-07 08:25:00 Chava rial [place] Diastolic (mm Hg) 2018-12-07 08:25:00 Mem orial [place] Temperature Oral (F) 2018-12-07 06:56:00 98.2 F [facility] [place] Heart Rate 2018-12-07 06:56:00 [facility] [place] Weight 2018-12-07 05:38:00 [facility] [place] BMI Calculated 2018-12-07 05:38:00 Memori al [place] Height 2018-12-07 05:38:00 157.48 cm [facility] [place] Temperature Oral (F) 2018-12-07 05:38:00 97.6 F [facility] [place] Heart Rate 2018-12-07 05:38:00 [facility] [place] Procedures Procedure Date / Time Performed Performing Clinician [facility] e URINE CULTURE 2019-10-31 10:28:00 Nataly Tellez LIPID PANEL 2019-10-31 10:28:00 Nataly Tellez HEMOGLOBIN A1C 2019-10-31 10:28:00 Nataly Tellez COMPREHENSIVE METABOLIC 2019-10-31 10:28:00 Nataly Tellez PANEL CBC WITH PLATELET AND 2019-10-31 10:28:00 Nataly Tellez DIFFERENTIAL THYROID STIMULATING 2019-10-31 10:28:00 Nataly Tellez HORMONE T4, FREE 2019-10-31 10:28:00 Nataly Tlelez URINALYSIS, AUTOMATED 2019-10-31 10:28:00 Nataly Tellez WITH MICROSCOPY CONSULT GYNECOLOGY 2019-06-18 00:00:00 Priscilla Humphries [facility] MRI CERVICAL SPINE WO 2019-01-17 14:44:49 Cole Allison CONTRAST Plan of Care Planned Activity Planned Date Details Comments Source Future Scheduled 2019-12-14 INFLUENZA VACCINE [place] [facility] Test 00:00:00 [code = INFLUENZA VACCINE] Future Scheduled 2013-04-14 SHINGLES VACCINES [place] [facility] Test 00:00:00 (#2) [code = SHINGLES VACCINES (#2)] Encounters Start End Encounter Admission Attending Care Care Encounter Source Date/Time Date/Time Type Type Clinicians Facility Department ID 2019-10-31 2019-10-31 Outpatient [facility] [id number] [place] 00:00:00 00:00:00 NATALY 976 Method i 2019-09-05 2019-09-05 Outpatient [facility] [id number] [place] 00:00:00 00:00:00 NATALY 740 Method i 2018-12-07 2018-12-07 Outpatient Kairshma [facility] [id number] 00:15:00 12:40:00 Emeterio 07 2018-12-07 2018-12-07 Emergency E [facility] [id number] [facility] 00:15:00 00:15:00 Results Test Description Test [...] . BUN (test code = 21 mg/dL 12-06 3094-0) Creatinine (test code = 0.86 mg/dL 0.6-0.88 For patients >49 years of 2160-0) age, the refere nce limitfor Creati nine is approximately 1 3% higher for peopleident ified as -Kristina n. EGFR Non-Afr. Bruneian 64 > OR = 60 (test code = 2775) mL/min/1.73m2 EGFR 74 > OR = 60 (test code = 73052-3) mL/min/1.73m2 BUN/creatinine ratio NOT APPLICABLE (calc) (test code = 3097-3) Sodium (test code = 141 mmol/L 345-649 7384-2) Potassium (test code = 4.3 mmol/L 3.5-5.3 3-3) Chloride (test code = 104 mmol/L 98-110 2074-0) CO2 (test code = 26 mmol/L 20-32 2027-9) Calcium (test code = 9.2 mg/dL 8.6-10.4 41827-8) Protein (test code = 6.8 g/dL 6.1-8.1 5-2) Albumin, S (test code = 4.0 g/dL 3.6-5.1 1750-7) Globulin, total (test 2.8 1.9- 3.7 g/dL code = 55087-3) (calc) Albumin/globulin ratio 1.4 1.0- 2.5 (test code = 1759-0) (calc) Total bilirubin (test 0.4 mg/dL 0.2-1.2 code = 1974-) Alkaline phosphatase 63 U/L 37-153 (test code = 6768-6) AST (test code = 20 U/L 10-35 1919-8) ALT (test code = 19 U/L 6-29 174-6) DAVID (test code = DAVID) FASTING: UNKNOWN RAC (test code = RAC) Performing Organization Information: Site ID: RGA Name: [facility] Address: [address] [place] [id number] Director: Abad Elizalde Lab Interpretation Abnormal (test code = 74284-7) [place] MethodistLipid [id number] 10:13:00 Test Item Value Reference Range Interpretation Comments Cholesterol, total 144 mg/dL <200 (test code = 2092-3) HDL cholesterol 55 mg/dL > OR = 50 (test code = 2084-9) Triglycerides (test 149 mg/dL <150 code = 257-8) LDL cholesterol 66 mg/dL (calc) Reference ra nge: calculated (test <100 Desira ble code = 70384-9) range <100 m g/dL for primary prevention; <7 0 mg/dL for patients with C HD or diabetic patients with > or = 2 CHD risk factors. LDL-C is now calculated using the Romeo-Trammell calculation, which is a validated novel method providin g better accuracy than the Friedewald equation in the estimation of LDL-C. Romeo S S et al. [place]. 2013;310(19): 3675-0350 (http://educati on .Graceful Tables .com/faq/BAW369 ) Cholesterol/HDL 2.6 <5.0 (calc) ratio (test code = 9830-1) Non-HDL cholesterol 89 <130 mg/dL For demetris ents with (test code = (calc) diabetes plus 1 70824-8) major ASCVD ris k factor, treatin g to a non-HDL-C goal of <100 mg/dL (LDL-C of <70 mg/dL) is considered a therapeutic option. DAVID (test code = FASTING: UNKNOWN DAVID) RAC (test code = Performing RAC) Organization Information: Site ID: RGA Name: [facility] Address: [address] [place] [address] Director: Abad Elizalde [place] MethodistHemoglobin [id number] 10:13:00 Test Item Value Reference Interpretation Comments Range Hemoglobin A1C 6.0 <5.7 % of H For someone w ithout (test code = total Hgb known diabetes, a 4548-4) hemoglobin A1c value between 5.7% an d 6.4% is consist ent withprediabetes and should be confi rmed with a follow-u p test. For someo ne with known diab etes, a value <7%indicates that their diabetes is well controlled . [id number] shou ld be individualized based on duration ofdiabetes, age , comorbid condit ions, and otherconsiderat ions. This assay resu lt is consistent with an increased risko f diabetes. Curre ntly, no consensus ex ists regarding use ofhemoglobin A1 c for diagnosis of diabetes for children. DAVID (test code = FASTING: UNKNOWN DAVID) RAC (test code = Performing RAC) Organization Information: Site ID: RGA Name: [facility] Address: [address] [place] [address] Director: Abad Elizalde Lab Interpretation Abnormal (test code = 85738-4) Araya MethodistFaheem4, [id number] 10:13:00 Test Item Value Reference Range Interpretation Comments T4, free (test code 1.1 ng/dL 0.8-1.8 = 3024-7) DAVID (test code = FASTING: UNKNOWN DAVID) RAC (test code = Performing Organization RAC) Information: Site ID: ELEUTERIO Name: [facility] Address: [address] [place] [id number] Director: Abad Elizaled [place] MethodistThyroid stimulating [id number] 10:13:00 Test Item Value Reference Range Interpretation Comments TSH (test code = 2.55 0.40- 4.50 mIU/L 3016-3) DAVID (test code = FASTING: UNKNOWN DAVID) RAC (test code = Performing Organization RAC) Information: Site ID: SHAANA Name: [facility] Address: [address] [place] [address] Director: Abad Cait [facility] [place] AdventismUrine [id number] 10:13:00 Test Item Value Reference Range Interpretation Comments Urine culture SEE NOTE CULTURE, URI NE, (test code = ROUTINE Juan M ro 630-4) Number: [id number] Test Status: Final Specimen Source: URINE Specimen Qualit y: Adequate Result: No Growth DAVID (test code = FASTING: UNKNOWN DAVID) RAC (test code = Performing RAC) Organization Information: Site ID: Shu Name: [facility] Address: [address] [place] [phone] Director: Abda Cait [facility] with platelet and [id number] 10:13:00 Test Item Value Reference Range Interpretation [...] Performing Organization Information: Site ID: RGA Name: [facility] Address: [address] [place] [phone] Director: Abad Elizalde Lab Interpretation Abnormal (test code = 50882-6) [place] MethodistUrinalysis, automated with [id number] 10:13:00 Test Item Value Reference Range Interpretation Comments Color, UA (test code = YELLOW YELLOW 5778-6) Appearance (test code = CLEAR CLEAR 5767-9) Specific gravity, urine 1.019 1.001-1.035 (test code = 5811-5) pH, urine (test code = < OR = 5.0 5.0-8.0 5803-2) Glucose, urine (test NEGATIVE NEGATIVE code = 72967-9) Bilirubin, UA (test code NEGATIVE NEGATIVE = 5770-3) Ketones, UA (test code = NEGATIVE NEGATIVE 1044-8) Occult blood, urine NEGATIVE NEGATIVE (test code = 5794-3) Protein, UA (test code = NEGATIVE NEGATIVE 91965-3) Nitrite, UA (test code = NEGATIVE NEGATIVE 5802-4) Leukocyte esterase, UA TRACE NEGATIVE A (test code = 5799-2) WBC, UA (test code = 0-5 < OR = 5 /HPF 5821-4) RBC, UA (test code = NONE SEEN < OR = 2 /HPF 42238-1) Squamous epithelial NONE SEEN < OR = 5 /HPF cells, UA (test code = 36109-4) Bacteria, UA (test code NONE SEEN NONE SEEN /HPF = 5769-5) Hyaline casts, UA (test NONE SEEN NONE SEEN /LPF code = 5796-8) DAVID (test code = DAVID) FASTING: UNKNOWN RAC (test code = RAC) Performing Organization Information: Site ID: [id number] Name[facility] Address: [address] [place] [id number] Director: Abad Elizalde Lab Interpretation (test Abnormal code = 33572-9) [facility] [id number] 06:39:00Negative (12/07/18 1:39 AM) [facility] VSLROME8604-88-88 06:39:00<0.02[facility] NHBOZPCKMFTN9335-70-45 06:39:0011.3[facility] XznjlxbAXIDBVUHGWCM1935-04-95 06:39:000.92[facility] NelbnmnVGHVAFDJYSJP7806-42-80 06:39:02950Kwvpautb [place] OQHEZVUIEZCJ8558-88-16 06:39:0021[facility] HwpmhjzCBQTANQLDVPF3465-95-67 06:39:00 4.3[facility] QhgrkruFRNPZIAJVLCQ7315-45-33 06:39:36414Cwargiqk [place] UZDQKDMRLWAH8824-99-28 06:39:0026[facility] YpdgomlBNDFKLQKZBLN5631-37-76 06:39:00 9.1[facility] LhpgrbcGIQTUDTUMINY7687-32-14 06:39:0059[facility]annELECTROLYTES 2018-12-07 06:39:46092Qkpblggq JkneyroCWJNPOTSML2094-29-09 06:39:0077.4[facility] RuokswnTURFNQJLBK0255-86-65 06:39:0014.6[facility] EmfltghXBGDPAMKOU4191-84-44 06:39:000.1[facility] TrfmbisSWSAUULNHJ4490-00-93 06:39:000.1[facility] [place] NLLNXWPOTV7582-88-20 06:39:000.7[facility] KoxpdamFVDZDNJVYO8503-71-12 06:39:001.3 [facility] NwexnjwGCRIOMTEVS6847-08-04 06:39:006.0[facility]annHEMATOLOGY 2018-12-07 06:39:008.9[facility] TkrxlilMEASZSBFDV8508-14-04 06:39:000.7[facility] IntejfaDNDBGSCADE9735-32-64 06:39:001.7[facility] NvwzozyBMIDNWWHMC6732-86-39 06:39:000.0[facility] MsvenhjMONGISKYOM6635-40-28 06:39:008.7[facility] [place] UNBVZRVCOV6167-15-32 06:39:00 Test Item Value Reference Range Interpretation Comments Max Amplitude Rapid (test code = Max 63 mm 52-71 Amplitude Rapid) [facility]frnfusNXFFQHEYHE2347-90-82 06:39:00 Test Item Value Reference Range Interpretation Comments Split Point Rapid (test code = Split 0.5 min Point Rapid) [facility] CenterEprpjyeJPNOOXPJKF6830-55-90 06:39:00 Test Item Value Reference Range Interpretation Comments R-time Rapid (test code = R-time 0.6 min 0.4-0.7 Rapid) [facility] CenterCqwjepiFMWYZZONST0418-72-28 06:39:00 Test Item Value Reference Range Interpretation Comments K-time Rapid (test code = K-time 1.5 min 0.6-2.3 Rapid) [facility] CenterCtjmupkXDCZAPKLRG4417-25-90 06:39:00 Test Item Value Reference Range Interpretation Comments Angle Rapid (test code = Angle 73 degrees 64-80 Rapid) [facility] CenterSvqfyocDTZVQTVEXG6644-45-41 06:39:00 Test Item Value Reference Range Interpretation Comments ACT (TEG) Rapid (test code = ACT (TEG) 105 s 86-118 Rapid) [facility] CenterSotoihfJVFQWUKMWF5556-51-76 06:39:00 Test Item Value Reference Range Interpretation Comments PT (test code = PT) 12.8 s 12.0-14.7 [facility] JacksonLeovyluITBLUACYWI7560-86-55 06:39:00 Test Item Value Reference Range Interpretation Comments INR (test code = INR) 0.98 1 0.85-1.17 [facility] IrbuntbNYGCISRUCA8196-69-44 06:39:74784Woquyfbw HermannHEMATOLOGY 2018-12-07 06:39:0014.3[facility] WseiaqbLWTMWWMXNZ6675-85-62 06:39:0033.4[facility] QyqiuotWJDZACHZTA5576-20-34 06:39:00 Test Item Value Reference Range Interpretation Comments MCH (test code = MCH) 29.8 pg 27.0-31.0 [facility] WsharqqKNDLCSIHHF0529-70-05 06:39:0089.0[facility]annHEMATOLOGY 2018-12-07 06:39:0037.5[facility] RtfogqvERTKFLKFJV5707-84-30 06:39:004.21[facility] DjmjuwiLKQODSIKZW5073-34-21 06:39:0012.5[facility] YtjqsnqGOJRBGAQPQ4995-00-07 06:39:0011.5[facility] EhrviaaVFPPULLTXS1372-69-66 06:39:008.7[facility] [place] FTPILWGTCF9442-10-77 06:39:00 Test Item Value Reference Range Interpretation Comments PTT (test code = PTT) 29.9 s 22.9-35.8 [facility]
[2019-11-20 22:52] LABS: Absolute Lymphocytes (CBC) 3.5 K/uL (0.7-4.9); Basophils % 1.4 % (0-1.3); Hematocrit 42.3 % (36.0-45.0); Lymphocytes % 34.6 % (15.3-44.8); RBC Red Blood Cell Count 4.89 M/uL (3.86-4.86)
[2019-11-20] MEDS ORDERED: METOPROLOL TAR 50 MG TAB ONE (22:57)
[2019-11-20] MEDS ORDERED: ASPIRIN EC 81 MG TAB PO ONE (22:57)
[2019-11-20] MEDS ORDERED: ENOXAPARIN 80 MG/0.8 ML SQ ONE (22:58)
[2019-11-20 23:01] LABS: BUN Blood Urea Nitrogen 24 mg/dL (7-18); Bicarbonate 30 mmol/L (21-32); Glucose Level 129 mg/dL (74-106); Potassium 4.6 mmol/L (3.5-5.1); Sodium Level 139 mmol/L (136-145)
[2019-11-20 23:02] LABS: ALT/SGPT 41 U/L (12-78); AST/SGOT 26 U/L (15-37); Albumin 3.8 g/dL (3.4-5.0); Alkaline Phosphatase 69 U/L (45-117); Bilirubin Direct < 0.1 mg/dL (0-0.2); Bilirubin Total 0.3 mg/dL (0.2-1.0); Magnesium 2.8 mg/dL (1.8-2.4); NT PRO-BNP 62 pg/mL (<450); Protein, Total 7.5 g/dL (6.4-8.2); Troponin (Emerg Dept Use Only) < 0.02 ng/mL (0.0-0.045)
--- NOTE | 2019-11-20 23:25 | EDPHYS ---
Physician Documentation [facility] Name: Ina Carrillo Age: 79 yrs Sex: Female : 1940 Arrival Date: 11/20/2019 Time: 17:27 Bed 19 Private MD: ED Physician Basil Munson HPI: 11/19 22:09 This 79 yrs old Female presents to ER via Ambulatory with complaints of rogelio Possible Pneumonia. 22:09 The patient has shortness of breath at rest. Onset: The symptoms/episode began/occurred rogelio gradually, 3 day(s) ago. The patient's shortness of breath is aggravated by nothing, is alleviated by nebulizer treatment, application of supplemental oxygen. The patient or guardian reports chest pain that is located primarily in the anterior chest wall, bilaterally. Onset: 3 day(s) ago. The pain radiates to Severity of symptoms: At their worst the symptoms were moderate in the emergency department the symptoms have improved moderately. Associated signs and symptoms: Pertinent positives: lightheadedness, shortness of breath. The chest pain is described as a heaviness, a pressure, squeezing. Historical: - Allergies: 17:56 Sulfa (Sulfonamide Antibiotics); ss - PMHx: 17:56 COPD; Hypertension; Hypothyroidism; ss - PSHx: 17:56 Appendectomy; Tubal ligation; Hysterectomy; Cholecystectomy; ss - Immunization history:: Adult Immunizations up to date. - Social history:: Smoking status: Patient denies any tobacco usage or history of. - Family history:: not pertinent. ROS: 22:09 Constitutional: Negative for fever, chills, and weight loss, Eyes: Negative for injury, rogelio pain, redness, and discharge, ENT: Negative for injury, pain, and discharge, Neck: Negative for injury, pain, and swelling, Abdomen/GI: Negative for abdominal pain, nausea, vomiting, diarrhea, and constipation, Back: Negative for injury and pain, : Negative for injury, bleeding, discharge, and swelling, MS/Extremity: Negative for injury and deformity, Skin: Negative for injury, rash, and discoloration, Neuro: Negative for headache, weakness, numbness, tingling, and seizure, Psych: Negative for depression, anxiety, suicide ideation, homicidal ideation, and hallucinations, Allergy/Immunology: Negative for hives, rash, and allergies, Endocrine: Negative for neck swelling, polydipsia, polyuria, polyphagia, and marked weight changes, Hematologic/Lymphatic: Negative for swollen nodes, abnormal bleeding, and unusual bruising. 22:09 Cardiovascular: Positive for chest pain, of the chest. 22:09 Respiratory: Positive for cough, with no reported sputum. 22:09 MS/extremity: Negative for acute changes, injury or acute deformity, decreased range of motion, pain, swelling, tenderness. Exam: 22:09 Constitutional: This is a well developed, well nourished patient who is awake, alert, rogelio and in no acute distress. Head/Face: Normocephalic, atraumatic. Eyes: Pupils equal round and reactive to light, extra-ocular motions intact. Lids and lashes normal. Conjunctiva and sclera are non-icteric and not injected. Cornea within normal limits. Periorbital areas with no swelling, redness, or edema. ENT: Nares patent. No nasal discharge, no septal abnormalities noted. Tympanic membranes are normal and external auditory canals are clear. Oropharynx with no redness, swelling, or masses, exudates, or evidence of obstruction, uvula midline. Mucous membranes moist. Neck: Trachea midline, no thyromegaly or masses palpated, and no cervical lymphadenopathy. Supple, full range of motion without nuchal rigidity, or vertebral point tenderness. No Meningismus. Chest/axilla: Normal chest wall appearance and motion. Nontender with no deformity. No lesions are appreciated. Cardiovascular: Regular rate and rhythm with a normal S1 and S2. No gallops, murmurs, or rubs. Normal PMI, no JVD. No pulse deficits. Respiratory: Lungs have equal breath sounds bilaterally, clear to auscultation and percussion. No rales, rhonchi or wheezes noted. No increased work of breathing, no retractions or nasal flaring. Abdomen/GI: Soft, non-tender, with normal bowel sounds. No distension or tympany. No guarding or rebound. No evidence of tenderness throughout. Back: No spinal tenderness. No costovertebral tenderness. Full range of motion. Skin: Warm, dry with normal turgor. Normal color with no rashes, no lesions, and no evidence of cellulitis. MS/ Extremity: Pulses equal, no cyanosis. Neurovascular intact. Full, normal range of motion. Neuro: Awake and alert, GCS 15, oriented to person, place, time, and situation. Cranial nerves II-XII grossly intact. Motor strength 5/5 in all extremities. Sensory grossly intact. Cerebellar exam normal. Normal gait. Psych: Awake, alert, with orientation to person, place and time. Behavior, mood, and affect are within normal limits. 22:09 Musculoskeletal/extremity: DVT Exam: No signs of deep vein thrombosis. no pain, no swelling, no tenderness, negative Homans' sign noted on exam, no appreciated bluish discoloration, no erythema, no increased warmth. 11/20 01:37 ECG was reviewed by the Attending Physician. [facility] Vital Signs: 11/19 17:53 BP 131 / 81; Pulse 71; Resp 16; Temp 97.8(TE); Pulse Ox 96% on R/A; Weight 81.19 kg; ss Pain 4/10; 23:00 BP 130 / 53; Pulse 63; Resp 18; Pulse Ox 95% on R/A; vc 11/20 01:00 BP 94 / 69; Pulse 60; Resp 15; Pulse Ox 95% on R/A; vc 03:00 BP 127 / 61; Pulse 57; Resp 14; Pulse Ox 96% on R/A; vc 14:00 BP 123 / 87; Pulse 77; Resp 18; Temp 98.6; Pulse Ox 97% on R/A; Pain 0/10; ll1 MDM: 11/19 22:00 Patient medically screened. [facility] 22:12 Data reviewed: vital signs, nurses notes, lab test result(s), EKG, radiologic studies, [facility] plain films. 23:12 Differential diagnosis: Bronchitis CHF exacerbation, anxiety, congestive heart failure rogelio pneumonia, pneumothorax, pulmonary embolus, stable angina, unstable angina, Myocardial Infarction pulmonary edema, Pulmonary Embolism reactive airway disease. Antibiotic administration: Not indicated. HEART Score: History: Slightly Suspicious (0), ECG: Normal (0), Age: > or = 65 years (2), Risk Factors: 1 or 2 risk factors (1), [Hypertension] [+ Family HX] Troponin: < or = 1 x Normal Limit (0). The patient was given aspirin in the Emergency Department. The patient's Wells Deep Vein Thrombosis Score was calculated as follows: Total Score: 0-2 Pts- Low Risk. The patient's pulmonary embolism risk score was calculated as follows: Total Score: 0-2 points. This patient was found to be at low risk for a pulmonary embolism by using the Well's assessment criteria Total Score: 0-2 points. This patient was found to be at low risk for a pulmonary embolism by using the Well's assessment criteria. Immunization status: Pneumococcal vaccine: Influenza vaccine: Data interpreted: court recording monitor: rate is 71 beats/min, rhythm is regular, Pulse oximetry: on room air is 96 %. Test interpretation: by ED physician or midlevel provider: ECG, plain radiologic studies. Counseling: I had a detailed discussion with the patient and/or guardian regarding: the historical points, exam findings, and any diagnostic results supporting the discharge/admit diagnosis, the presence of at least one elevated blood pressure reading (>120/80) during this emergency department visit, lab results, radiology results, the need for further work-up and treatment in the hospital. ED course: chest pain , with exertion. 11/19 22:08 Order name: Basic Metabolic Panel [facility] 11/19 22:08 Order name: CBC with Diff [facility] 11/19 22:08 Order name: LFT's [facility] 11/19 22:08 Order name: Magnesium [facility] 11/19 22:08 Order name: NT PRO-BNP [facility] 11/19 22:08 Order name: Troponin (emerg Dept Use Only) [facility] 11/19 23:14 Order name: CBC with Automated Diff; Complete Time: 00:15 EDMA 11/19 23:14 Order name: Basic Metabolic Panel; Complete Time: 00:15 EDMA 11/19 23:14 Order name: Liver (Hepatic) Function; Complete Time: 00:15 EDMA 11/19 23:14 Order name: Troponin (Emerg Dept Use Only); Complete Time: 00:15 EDMA 11/19 23:14 Order name: NT PRO-BNP; Complete Time: 00:15 EDMA 11/19 23:14 Order name: Magnesium; Complete Time: 00:15 EDMA 11/20 01:37 Order name: Urine Dipstick--Ancillary (enter results) ar5 11/20 08:02 Order name: Troponin I [facility] 11/19 22:08 Order name: XRAY Chest (1 view) [facility] 11/19 22:08 Order name: EKG; Complete Time: 21:28 [facility] 11/19 22:08 Order name: Cardiac monitoring; Complete Time: 22:35 [facility] 11/19 22:08 Order name: EKG - Nurse/Tech; Complete Time: 22:35 [facility] 11/19 22:08 Order name: IV Saline Lock; Complete Time: 22:35 [facility] 11/19 22:08 Order name: CT Chest For PE Angio [facility] 11/20 07:36 Order name: RAD; Complete Time: 07:43 [facility] 11/20 08:02 Order name: Lipid Profile [facility] 11/20 10:48 Order name: NM [facility] 11/20 12:01 Order name: Troponin I [facility] 11/19 22:08 Order name: Labs collected and sent; Complete Time: 22:35 [facility] 11/19 22:08 Order name: O2 Per Protocol; Complete Time: 22:35 [facility] 11/19 22:08 Order name: O2 Sat Monitoring; Complete Time: 22:35 [facility] EC/09 01:37 Rate is 61 beats/min. Rhythm is regular. QRS [place] is Normal. AL interval is normal. QRS rogelio interval is normal. QT interval is normal. No Q waves. T waves are Normal. No ST changes noted. Clinical impression: Normal ECG and No evidence of ischemia. Interpreted by me. Reviewed by me. Administered Medications: 11/19 22:53 Drug: Aspirin 81 mg Route: PO; vc 11/20 03:09 Follow up: Response: No adverse reaction 11/19 22:54 Drug: Lopressor (metoprolol TARTRATE) 50 mg Route: PO; vc 11/20 03:09 Follow up: Response: No adverse reaction 11/19 22:54 Drug: Lovenox 1 mg/kg {Note: 80 mg administered.} Route: Sub-Q; Site: left upper vc abdomen; 11/20 03:09 Follow up: Response: No adverse reaction vc 01:54 Drug: Xopenex 1.25 mg Route: Inhalation; vc 01:54 Drug: AtroVENT Aerosol 0.5 mg Route: Inhalation; vc 01:54 Drug: Tylenol 650 mg Route: PO; vc 03:09 Follow up: Response: No adverse reaction vc Disposition: 11/20/19 23:18 Hospitalization ordered by Darshan Kincaid for Observation. Preliminary diagnosis are Angina pectoris, unspecified, Dyspnea. - Bed requested for [facility] ER HOLD. - Status is Observation. jp3 - Condition is Stable. - Problem is new. - Symptoms have improved. Signatures: Dispatcher [employer] EDBasil Tellez MD MD cha Rittger, Kevin, MD MD kdr Smirch, Shelby, RN RN ss Julissa Brown RN RN tl1 Everardo Hernandez jp3 Ellen Mckeon RN RN vc Corrections: (The following items were deleted from the chart) 03:05 11/19 23:18 Hospitalization Ordered by Darshan Kincaid for Observation. Preliminary tl1 diagnosis is Angina pectoris, unspecified; Dyspnea. Bed requested for Telemetry/MedSurg (observation). Status is Observation. Condition is Stable. Problem is new. Symptoms have improved. [facility] 11/20 13:42 03:11/20/2019 23:18 Hospitalization Ordered by Darshan Kincaid for Observation. jp3 Preliminary diagnosis is Angina pectoris, unspecified; Dyspnea. Bed requested for [facility] ER HOLD. Status is Observation. Condition is Stable. Problem is new. Symptoms have improved. tl1
--- NOTE | 2019-11-20 23:25 | ER ---
Nurse's Notes [facility] Name: Ina Carrillo Age: 79 yrs Sex: Female : 1940 Arrival Date: 11/20/2019 Time: 17:27 Bed 19 Private MD: Diagnosis: Angina pectoris, unspecified;Dyspnea Presentation: 11/19 17:53 Chief complaint: Patient states: Diagnosed with pneumonia recently and finished ss prednisone and Z-Ranjeet. Pt reports she felt better yesterday, but today began having shortness of breath and chest tightness upon exertion. PCP believes this may be a relapse of her pneumonia. Coronavirus screen: Patient denies a cough. Patient reports shortness of breath or difficulty breathing. Patient denies measured and/or subjective temperature greater than 100.4F prior to today's visit. Patient denies travel on a cruise ship or to a country the [facility] currently lists as an affected area. Patient denies contact with known and/or suspected case of COVID-19. Ebola Screen: Patient denies exposure to infectious person. Patient denies travel to an Ebola-affected area in the 21 days before illness onset. Initial Sepsis Screen: Does the patient meet any 2 criteria? No. Patient's initial sepsis screen is negative. Does the patient have a suspected source of infection? No. Patient's initial sepsis screen is negative. Risk Assessment: Do you want to hurt yourself or someone else? Patient reports no desire to harm self or others. Onset of symptoms was November 20, 2019. 17:53 Method Of Arrival: Ambulatory ss 17:53 Acuity: SARAH 3 ss Triage Assessment: 21:59 General: Appears in no apparent distress. uncomfortable, Behavior is calm, cooperative, vc appropriate for age. Historical: - Allergies: 17:56 Sulfa (Sulfonamide Antibiotics); ss - PMHx: 17:56 COPD; Hypertension; Hypothyroidism; ss - PSHx: 17:56 Appendectomy; Tubal ligation; Hysterectomy; Cholecystectomy; ss - Immunization history:: Adult Immunizations up to date. - Social history:: Smoking status: Patient denies any tobacco usage or history of. - Family history:: not pertinent. Screenin:59 Abuse screen: Denies threats or abuse. Nutritional screening: No deficits noted. vc Tuberculosis screening: No symptoms or risk factors identified. Fall Risk None identified. Assessment: 22:00 General: Appears in no apparent distress. uncomfortable, ill, Behavior is calm, vc cooperative, appropriate for age. 22:00 Reassessment: Patient appears in no apparent distress at this time. Patient and/or vc family updated on plan of care and expected duration. Pain level reassessed. Patient is alert, oriented x 3, equal unlabored respirations, skin warm/dry/pink. Pain: Complains of pain in chest Pain does not radiate. Quality of pain is described as aching, squeezing, Noted to be grimacing, Also complains of shortness of breath. Neuro: Level of Consciousness is awake, alert, obeys commands, Oriented to person, place, time, situation, Appropriate for age. Cardiovascular: Capillary refill < 3 seconds Patient's skin is warm and dry. Respiratory: Reports shortness of breath on exertion Airway is patent Respiratory effort is even, unlabored, Respiratory pattern is regular, symmetrical. GI: No signs and/or symptoms were reported involving the gastrointestinal system. : No signs and/or symptoms were reported regarding the genitourinary system. Musculoskeletal: Circulation, motion, and sensation intact. Range of motion: intact in all extremities, Swelling present in right foot and left foot. 23:00 Reassessment: Patient appears in no apparent distress at this time. Patient and/or vc family updated on plan of care and expected duration. Pain level reassessed. Patient is alert, oriented x 3, equal unlabored respirations, skin warm/dry/pink. 11/20 00:00 Reassessment: Patient appears in no apparent distress at this time. Patient and/or vc family updated on plan of care and expected duration. Pain level reassessed. Patient is alert, oriented x 3, equal unlabored respirations, skin warm/dry/pink. 01:00 Reassessment: Patient appears in no apparent distress at this time. Patient and/or vc family updated on plan of care and expected duration. Pain level reassessed. Patient is alert, oriented x 3, equal unlabored respirations, skin warm/dry/pink. Patient states symptoms have improved. 02:00 Reassessment: Patient appears in no apparent distress at this time. Patient and/or vc family updated on plan of care and expected duration. Pain level reassessed. Patient is alert, oriented x 3, equal unlabored respirations, skin warm/dry/pink. Critical care time stopped, patient has stabilized. Vital Signs: 11/19 17:53 BP 131 / 81; Pulse 71; Resp 16; Temp 97.8(TE); Pulse Ox 96% on R/A; Weight 81.19 kg; ss Pain 4/10; 23:00 BP 130 / 53; Pulse 63; Resp 18; Pulse Ox 95% on R/A; vc 11/20 01:00 BP 94 / 69; Pulse 60; Resp 15; Pulse Ox 95% on R/A; vc 03:00 BP 127 / 61; Pulse 57; Resp 14; Pulse Ox 96% on R/A; vc 14:00 BP 123 / 87; Pulse 77; Resp 18; Temp 98.6; Pulse Ox 97% on R/A; Pain 0/10; ll1 ED Course: 11/19 17:27 Patient arrived in ED. ag5 17:55 Triage completed. ss 17:56 Arm band placed on right wrist. ss 21:58 Ellen Mckeon, FREDI is Primary Nurse. vc 22:00 Basil Munson MD is Attending Physician. rogelio 22:26 Initial lab(s) drawn, by ms, sent to lab. Inserted saline lock: 20 gauge in right jp3 antecubital area, using aseptic technique. Blood collected. Patient maintains SpO2 saturation greater than 95% on room air. 22:34 Placed in gown. Bed in low position. Call light in reach. Side rails up X 1. Side rails jp3 up X2. Warm blanket given. Pillow given. Verbal reassurance given. lighthouse keeper on. Pulse ox on. NIBP on. 23:01 EKG done, by ED staff, reviewed by Basil Munson MD X-ray(s) taken. jp3 23:17 Darshan Kincaid is Hospitalizing Provider. [facility] 11/20 10:17 Note: STRESS TEST COMPLETE. PT TOLERATED TEST WELL. NO CHANGE. RETURNED TO ED. NURSE tm4 NOTIFIED. 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 14:10 IV discontinued, intact, bleeding controlled, No redness/swelling at site. Pressure ll1 dressing applied. 17:57 No provider procedures requiring assistance completed. ll1 Administered Medications: 11/19 22:53 Drug: Aspirin 81 mg Route: PO; vc 11/20 03:09 Follow up: Response: No adverse reaction vc 11/19 22:54 Drug: Lopressor (metoprolol TARTRATE) 50 mg Route: PO; vc 11/20 03:09 Follow up: Response: No adverse reaction vc 11/19 22:54 Drug: Lovenox 1 mg/kg {Note: 80 mg administered.} Route: Sub-Q; Site: left upper vc abdomen; 11/20 03:09 Follow up: Response: No adverse reaction vc 01:54 Drug: Xopenex 1.25 mg Route: Inhalation; vc 01:54 Drug: AtroVENT Aerosol 0.5 mg Route: Inhalation; vc 01:54 Drug: Tylenol 650 mg Route: PO; vc 03:09 Follow up: Response: No adverse reaction vc Outcome: 11/19 23:18 Decision to Hospitalize by Provider. [facility] 11/20 13:42 Patient left the ED. jp3 17:57 Discharged to home ambulatory. ll1 17:57 Condition: stable 17:57 Discharge instructions given to patient, Instructed on discharge instructions, follow up and referral plans. medication usage, Demonstrated understanding of instructions, follow-up care, medications, Prescriptions given X 2. Signatures: Basil Munson MD MD cha Marroquin, Tracy tm4 Laila Matias RN RN Everardo Hernandez 3 Vadim Ramos 5 Ellen Mckeon RN RN Nurys Foote RN RN ll1 Corrections: (The following items were deleted from the chart) 11/19 17:55 17:53 Coronavirus screen: Proceed with normal triage. Patient denies a cough. Patient ss reports shortness of breath or difficulty breathing. Patient denies measured and/or subjective temperature greater than 100.4F prior to today's visit. Patient denies travel on a cruise ship or to a country the [facility] currently lists as an affected area. Patient denies contact with known and/or suspected case of COVID-19. ss 22:54 22:53 Lovenox 1 mg/kg Sub-Q in left upper abdomen vc vc
[2019-11-21] MEDS ORDERED: IPRATROPIUM BROM 0.5MG/2.5ML ONE ×2 (01:33→08:29)
[2019-11-21] MEDS ORDERED: LEVALBUTEROL 1.25 MG/3 ML NEB ONE (01:34)
[2019-11-21] MEDS ORDERED: ACETAMINOPHEN 325 MG TABLET ONE (01:34)
--- NOTE | 2019-11-21 02:18 | P.HP ---
Certification for Inpatient Patient admitted to: Observation With expected LOS: <2 Midnights Practitioner: I am a practitioner with admitting privileges, knowledge of patient current condition, hospital course, and medical plan of care. Services: Services provided to patient in accordance with Admission requirements found in Title 42 Section 412.3 of the Code of Federal Regulations Patient History Date of Service: 11/21/19 Reason for admission: Shortness of breath and chest tightness History of Present Illness: 79-year-old woman with a history of COPD and hypothyroidism presents to the ED with a complaint of sudden onset of chest tightness and shortness of breath. Patient stated she tested negative for COVID 19 last week. She denied any fever or chills. She endorsed chest pain worse with exertion. Patient denies any history of heart disease. She feels her shortness of breath is not related to her COPD. CTA thorax done was negative for pulmonary embolism or pneumonia. Patient has cardiac risk factors include age, smoking and hypertension. He is placed under observation for possible COPD exacerbation and ACS rule out. Allergies codeine Allergy (Verified 05/10/13 17:52) Nausea/Vomiting Sulfa (Sulfonamide Antibiotics) Allergy (Verified 05/10/13 17:52) Nausea/Vomiting Home Medications: Cholecalciferol (Vitamin D3) [Vitamin D 1000 Iu Tab*] 1,000 unit PO DAILY 05/10/13 Cyanocobalamin (Vitamin B-12) [B-12] PO 05/10/13 Lactobacillus Acidophilus [Probiotic] 1 each PO DAILY 05/10/13 Levothyroxine [Synthroid*] 25 mcg PO [id number] 05/10/13 Metoclopramide [Reglan*] 5 mg PO BID 05/10/13 Omeprazole Magnesium [Prilosec Otc] 20 mg PO BID PRN 05/10/13 Rosuvastatin [Crestor*] 10 mg PO DAILY 05/10/13 Sucralfate [Carafate] 1 gm PO BID 05/10/13 Venlafaxine HCl [Effexor*] 75 mg PO DAILY 05/10/13 Aspirin Tab [Marlo Aspirin*] 325 mg PO DAILY WITH BREAKFAST #30 tab 05/11/13 Metoprolol Tartrate [Lopressor*] 25 mg PO BID #60 tab 05/11/13 - Past Medical/Surgical History Diabetic: No -: Hypothyroidism -: Hiatal Hernia -: Bladder suspensions -: Appendectomy -: Hysterectomy -: Cholecystectomy -: Tubal ligation -: Facelift -: Eyebrow lift -: breast augmentation - Family History Family History: Reviewed- Non-Contributory - Social History Smoking Status: Former smoker Alcohol use: No CD- Drugs: No Caffeine use: Yes Review of Systems Other: Except as documented, all other systems reviewed and negative. Physical Examination - Physical Exam General: Alert, In no apparent distress, Oriented x3 HEENT: Normocephalic, PERRLA, Mucous membr. moist/pink, Sclerae nonicteric Neck: Supple, JVD not distended Respiratory: Clear to auscultation bilaterally, Normal air movement Cardiovascular: No edema, Regular rate/rhythm, Normal S1 S2 Capillary refill: <2 Seconds Gastrointestinal: Normal bowel sounds, Soft and benign, Non-distended, No tenderness Musculoskeletal: No swelling, No erythema Integumentary: No rashes Neurological: Normal strength at 5/5 x4 extr, Cranial nerves 3-12 intact - Studies Laboratory Data (last 24 hrs) 11/20/19 22:26: WBC 10.1 D, Hgb 13.8, Hct 42.3, Plt Count 337 11/20/19 22:26: Sodium 139, Potassium 4.6, BUN 24 H, Creatinine 0.93, Glucose 129 H, Magnesium 2.8 H, Total Bilirubin 0.3, AST 26, ALT 41, Alkaline Phosphatase 69 Assessment and Plan - Problems (Diagnosis) (1) COPD exacerbation Current Visit: Yes Status: Acute (2) Chest pain Current Visit: Yes Status: Acute (3) Hypothyroidism Current Visit: Yes Status: Acute (4) Hypertension Current Visit: Yes Status: Acute - Plan Place under observation. Trend troponin. Treat COPD exacerbation scheduled bronchodilators, a dose of IV steroid. No indication for antibiotics. Nuclear stress test pending troponin result. Check TSH. - Advance Directives Does patient have a Living Will: Yes Does patient have a Durable POA for Healthcare: Yes
[2019-11-21] MEDS ORDERED: METHYLPREDNISOLONE 40 MG INJ IV ONE (06:45)
[2019-11-21] MEDS ORDERED: METHYLPREDNISOLONE 125 MG INJ ONE (07:07)
--- NOTE | 2019-11-21 07:36 | RAD REPORT ---
EXAM DESCRIPTION: [facility] Single View11/20/2019 10:42 pm CLINICAL HISTORY: Chest pain COMPARISON: November 13 FINDINGS: The lungs appear clear of acute infiltrate. The heart is mildly enlarged IMPRESSION: No acute abnormalities displayed
[2019-11-21] MEDS ORDERED: ASPIRIN EC 81 MG TAB PO ONE (07:51)
[2019-11-21] MEDS ORDERED: ENOXAPARIN 40 MG/0.4 ML SQ ONE (07:51)
[2019-11-21 08:02] LABS: HDL Cholesterol 59 mg/dL (40-60); LDL Cholesterol, Calculated 27 (<130); Troponin I < 0.02 ng/mL (0.0-0.045)
[2019-11-21 08:16] VITALS: BP 126/58; TEMP 97.2
[2019-11-21] MEDS: ALBUTEROL 2.5 MG/3 ML NEB SOL NEB SCH ×2 (08:20→14:00)
[2019-11-21] MEDS: IPRATROPIUM BROM 0.5MG/2.5ML NEB SCH ×2 (08:20→14:00)
[2019-11-21] MEDS ORDERED: ALBUTEROL 2.5 MG/3 ML NEB SOL ONE (08:29)
[2019-11-21] MEDS ORDERED: REGADENOSON 0.4 MG/5 ML SYR IV ONE (08:52)
[2019-11-21] MEDS ORDERED: ASPIRIN EC 81 MG TAB PO SCH (09:00)
[2019-11-21] MEDS ORDERED: ENOXAPARIN 40 MG/0.4 ML SQ SCH (09:00)
[2019-11-21] MEDS ORDERED: PNEUMOCOCCAL VACCINE 0.5 ML IMVAC ONE (09:00)
--- NOTE | 2019-11-21 10:47 | RAD REPORT ---
EXAM DESCRIPTION: NM - Rest Stress Cardiac Imaging - 11/21/2019 10:26 am CLINICAL HISTORY: Chest pain. COMPARISON: None. TECHNIQUE: The patient was administered approximately 10.3 mCi of Tc 99m Sestamibi prior to resting SPECT imaging of the heart. The patient was then administered approximately 31.8 mCi of Tc 99m Sestam ibi following exercise or pharmacologic stress. Multiplanar SPECT images were reviewed. FINDINGS: There is uniformity of radiotracer uptake involving the entire left ventricular myocardiu m on rest and stress images. The left ventricular ejection fraction equals 66% IMPRESSION: Negative for a myocardial perfusion defect
--- NOTE | 2019-11-21 12:09 | P.DS ---
Admission Date: 11/21/19 Discharge Date: 11/21/19 Primary Care Provider: Dr. Gill([facility]) Disposition: ROUTINE DISCHARGE Discharge Condition: GOOD Reason for Admission: Shortness of breath and chest tightness Consultations: Cardiology-Dr. Adams Procedures: Chest x-ray: COMPARISON: November 13 FINDINGS: The lungs appear clear of acute infiltrate. The heart is mildly enlarged IMPRESSION: No acute abnormalities displayed Cardiac stress test: FINDINGS: There is uniformity of radiotracer uptake involving the entire left ventricular myocardium on rest and stress images. The left ventricular ejection fraction equals 66% IMPRESSION: Negative for a myocardial perfusion defect CT scan chest: 1. No pulmonary embolism 2. Severe centrilobar emphysematous change 3. Mild bibasilar atelectasis 4. Cardiomegaly with Coronary artery arthrosclerosis. Medical problem list: Chest pain, atypical COPD Hypertension Hypothyroidism GERD Hyperlipidemia Brief History of Present Illness: 79-year-old female with multiple medical problems including COPD, diastolic CHF, hypertension, hypothyroidism. Patient presented with chest pain and shortness of breath. Initial chest x-ray unremarkable. CT chest showed no pulmonary embolism or pneumonia. Patient admitted for further evaluation and treatment. Hospital Course: Patient presented with chest pain. CT scan shows no pulmonary embolism, pneumonia or pleural effusion. Patient has COPD changes. Patient was admitted for further evaluation. Patient seen and evaluated by pulmonology. Cardiac stress test performed to evaluate for possible underlying CAD. Left ventricular ejection fraction around 66%. Stress test showed no stress-induced ischemia. No further workup recommended at this time. Recommend follow up with cardiology in 1-2 weeks to follow up this hospitalization. Patient would benefit with outpatient echocardiogram to further evaluate. Patient may continue with aspirin daily. Patient with underlying COPD. Patient reports compliance with medication. At discharge patient will need a continue with her Trelegy and ProAir. Patient sees pulmonology. Recommend a follow up with pulmonology in 2-4 weeks to follow up this hospitalization. Patient with hypertension. At discharge blood pressure stable. At discharge she will continue with metoprolol as directed. Recommend to maintain blood pressure less 150/80. Further adjustment can be done by her PCP. Patient with hyperlipidemia. At discharge she will continue with Crestor as directed. Patient with hypothyroidism. At discharge she will continue with her medication. Patient with GERD. At discharge she will continue with her medication. Vital Signs/Physical Exam: Temp Pulse Resp BP Pulse Ox 97.2 F 62 16 126/58 L 98 11/21/19 08:00 11/21/19 08:00 11/21/19 08:00 11/21/19 08:00 11/21/19 08:00 General: Alert, In no apparent distress, Oriented x3, Cooperative HEENT: Atraumatic Neck: Supple Respiratory: Clear to auscultation bilaterally, Normal air movement Cardiovascular: Normal pulses, Regular rate/rhythm Gastrointestinal: Normal bowel sounds, Soft and benign Integumentary: No warmth, No cyanosis Neurological: Normal speech, Normal strength at 5/5 x4 extr, Normal tone, Normal affect Laboratory Data at Discharge: WBC 10.1 K/uL (4.3-10.9) D 11/20/19 22:26 Hgb 13.8 g/dL (12.0-15.0) 11/20/19 22:26 Hct 42.3 % (36.0-45.0) 11/20/19 22:26 Plt Count 337 K/uL (152-406) 11/20/19 22:26 Sodium 139 mmol/L (136-145) 11/20/19 22:26 Potassium 4.6 mmol/L (3.5-5.1) 11/20/19 22:26 BUN 24 mg/dL (7-18) H 11/20/19 22:26 Creatinine 0.93 mg/dL (0.55-1.3) 11/20/19 22:26 Glucose 129 mg/dL (74-106) H 11/20/19 22:26 Magnesium 2.8 mg/dL (1.8-2.4) H 11/20/19 22:26 Total Bilirubin 0.3 mg/dL (0.2-1.0) 11/20/19 22:26 AST 26 U/L (15-37) 11/20/19 22:26 ALT 41 U/L (12-78) 11/20/19 22:26 Alkaline Phosphatase 69 U/L (45-117) 11/20/19 22:26 Troponin I < 0.02 ng/mL (0.0-0.045) 11/21/19 10:33 Triglycerides 320 mg/dL (<150) H 11/21/19 07:30 Cholesterol 150 mg/dL (<200) 11/21/19 07:30 HDL Cholesterol 59 mg/dL (40-60) 11/21/19 07:30 Cholesterol/HDL Ratio 2.54 11/21/19 07:30 Home Medications: Cholecalciferol (Vitamin D3) [Vitamin D 1000 Iu Tab*] 1,000 unit PO DAILY 05/10/13 Cyanocobalamin (Vitamin B-12) [B-12] PO 05/10/13 Lactobacillus Acidophilus [Probiotic] 1 each PO DAILY 05/10/13 Levothyroxine [Synthroid*] 25 mcg PO [id number] 05/10/13 Metoclopramide [Reglan*] 5 mg PO BID 05/10/13 Omeprazole Magnesium [Prilosec Otc] 20 mg PO BID PRN 05/10/13 Rosuvastatin [Crestor*] 10 mg PO DAILY 05/10/13 Sucralfate [Carafate] 1 gm PO BID 05/10/13 Venlafaxine HCl [Effexor*] 75 mg PO DAILY 05/10/13 Aspirin Tab [Marlo Aspirin*] 325 mg PO DAILY WITH BREAKFAST #30 tab 05/11/13 Metoprolol Tartrate [Lopressor*] 25 mg PO BID #60 tab 05/11/13 Albuterol Sulfate [Proair Hfa] 2 puff IH TID PRN #1 hfa.aer.ad 11/21/19 Fluticasone/Umeclidin/Vilanter [Trelegy Ellipta 100-62.5-25] 1 each IH DAILY #1 blst.w.dev 11/21/19 New Medications: Albuterol Sulfate [Proair Hfa] 2 puff IH TID PRN #1 hfa.aer.ad PRN Reason: Shortness Of Breath Fluticasone/Umeclidin/Vilanter [Trelegy Ellipta 100-62.5-25] 1 each IH DAILY #1 blst.w.dev Patient Discharge Instructions: 1. Recommend follow up with PCP in 1 week to follow up this hospitalization. 2. Patient presented with chest pain. CT scan shows no pulmonary embolism, pneumonia or pleural effusion. Patient has COPD changes. Patient was admitted for further evaluation. Patient seen and evaluated by pulmonology. Cardiac stress test performed to evaluate for possible underlying CAD. Left ventricular ejection fraction around 66%. Stress test showed no stress-induced ischemia. No further workup recommended at this time. Recommend follow up with cardiology in 1-2 weeks to follow up this hospitalization. Patient would benefit with outpatient echocardiogram to further evaluate. Patient may continue with aspirin daily. 3. Patient with underlying COPD. Patient reports compliance with medication. At discharge patient will need a continue with her Trelegy and ProAir. Patient sees p ulmonology. Recommend a follow up with pulmonology in 2-4 weeks to follow up this hospitalization. 4. Patient with hypertension. At discharge blood pressure stable. At discharge she will continue with metoprolol as directed. Recommend to maintain blood pressure less 150/80. Further adjustment can be done by her PCP. 5. Patient with hyperlipidemia. At discharge she will continue with Crestor as directed. 6. Patient with hypothyroidism. At discharge she will continue with her medication. 7. Patient with GERD. At discharge she will continue with her medication. Diet: AHA Activity: Ad alem Time spent managing pt's care (in minutes): 55
--- NOTE | 2019-11-21 13:14 | TREADPHA ---
DX: CHEST PAIN Date of Study: 11/21/2019 Ht: 5' 7 " Wt: 192 lb 1.42 oz Consulting Physician: LATOYA MEDICATIONS: ASPIRIN, PROVENTIL, LOVENOX HISTORY: COPD, HYPERTENSION, HYPOTHYROIDISM PHYSICIAL EXAMINATION: RESTING B.P.: 127/55 RESTING H.R.: 63 RESTING EKG: NORMAL PROTOCOL: LEXISCAN EXERCISE TIME: 3:30 B.P. AT [facility] STRESS: 133/58 IMPRESSION: LEXISCAN INJECTED, CARDIOLITE INJECTED - SEE NUCLEAR MEDICINE REPORT. NO CHEST PAIN. REPORTED CHEST TIGHTNESS BEFORE MEDICATION INJECTION, BUT REPORTS THAT IS GO BETTER AFTER INJECTION. NO VENTRICULAR TACHYCARDIA, NO SUPRA VENTRICULAR TACHYCARDIA. AT [facility] EXERCISE NORMAL ST AND T WAVE CHANGES.
[2019-11-21 14:05] VITALS: O2SAT 96
--- NOTE | 2019-11-21 16:58 | RAD REPORT ---
EXAM DESCRIPTION: CT - Chest For Pe Angio - 11/21/2019 6:16 am CLINICAL HISTORY: Chest pain COMPARISON: None Available. TECHNIQUE: CTA of the chest obtained following the uncomplicated intravenous administration of nonio angella iodinated contrast. 3-D/MIP reformatted images of the chest available for evaluation. FINDINGS: Chest: Pulmonary arteries: Contrast bolus is adequate.No filling defects identified in the pulmonary arterie s to suggest pulmonary embolus. Thyroid: No abnormalities of the visualized thyroid. Great Vessels: Great vessels have normal anatomic configuration. Thoracic Aorta: Atherosclerotic calcification of the thoracic aorta. Heart: Cardiomegaly. No significant pericardial effusion. Coronary artery atherosclerosis. Lymph Nodes: No enlarged mediastinal lymph nodes identified. Esophagus: Small hiatal hernia. Other: No additional findings. Lungs: Centrilobular emphysematous changes. Bibasilar dependent atelectasis. No confluent airspace co nsolidation or peripheral nodular groundglass opacities. Pleura: No pleural effusion or pneumothorax. Trachea/Airways: No abnormalities of the visualized trachea or airways. Bones: Degenerative endplate spondylosis. Upper Abdomen: Limited images of the upper abdomen demonstrate no definite abnormalities of visualize d portions of the liver and spleen. IMPRESSION: 1. No pulmonary embolus. 2. Severe centrilobular emphysematous change. 3. Mild bibasilar atelectasis. 4. Cardiomegaly with coronary artery atherosclerosis. This exam was performed according to our departmental dose-optimization program, which includes autom ated exposure control, adjustment of the mA and/or kV according to patient size and/or use of iterati ve reconstruction technique. Electronically signed by: Carlos Alberto Mcintosh 11/21/2019 12:15 AM CDT Due to temporary technical issues with the PACS/Fluency reporting system, reports are being signed by the in house radiologist without review as a courtesy to ensure prompt reporting. The interpreting r adiologist is fully responsible for the content of the report.
[2019-11-21 21:57] LABS: Urine Blood NEGATIVE (NEG); Urine Glucose NEGATIVE (NEG); Urine Protein NEGATIVE (NEG); Urine Specific Gravity 1.015 (1.005-1.030); Urine pH 5.5 (5.0-7.0)
== END 2019-11-21 15:00 | disposition home or self-care (01) ==
LOC: ER 17:25 → ERHOLD 11-21 02:32
PROVIDERS: ADMIT Internal Medicine; ATTEND Internal Medicine
DX: R07.89 Other chest pain (principal); J44.9 Chronic obstructive pulmonary disease, unspecified; I11.0 Hypertensive heart disease with heart failure; I50.30 Unspecified diastolic (congestive) heart failure; E03.9 Hypothyroidism, unspecified; K21.9 Gastro-esophageal reflux disease without esophagitis; E78.5 Hyperlipidemia, unspecified; I25.10 Atherosclerotic heart disease of native coronary artery without angina pectoris; J98.11 Atelectasis; Z79.82 Long term (current) use of aspirin; Z79.51 Long term (current) use of inhaled steroids; Z79.899 Other long term (current) drug therapy; Z87.891 Personal history of nicotine dependence
CPT/HCPCS: 93017; 85025; 80048; 36415; 83735; 80061; 80076; 81003; 84484 ×3; 83880; 71275; 71045; 78452; 96372; 99285; Q9967; J1650; J2785; J2930; A9500; G0378 ×2

== ENCOUNTER 2021-01-05 17:09 | Emergency (ER) | payer OTHER ==
--- OUTSIDE RECORDS SUMMARY | 2021-01-05 17:13 | XMS REPORT | Continuity of Care Document ---
:1940 Author Organization [facility] t Address [address] [place] [address] Care Team Providers Name Role Phone Rosalinda ANDERSON, F. Primary Care Physician Rosalinda ANDERSON, F. Attending Clinician Provider Attending Clinician Denzel DE LEON Attending Clinician Unavailable Karishma Attending Clinician Laci Coe Admitting Clinician Payers Payer Name Policy Type Policy Effective Date Expiration Date Sour ce Number MEDICAREMEDICARE PART [id number] [facility]00 [facility] [id number] 2003- [place] [id number] 2018 [facility] [id number] 00:00:00 Hos pital 2018-Commercia l Problems Condition Condition Condition Status Onset Resolution Last Treating Co mments Source Name Details Category Date Date Treatment Clinician Date S/P Diagnosis Active 2019-12-12 Mem oria FALL-ORBIT - 11:10:00 l AL FLOOR S/P 00:00: [place] FX FALL-ORBIT 00 AL FLOOR FX Active 9 [facility] GERD GERD Disease Active Methodi (gastroeso (gastroeso 5- st phageal phageal 00:00: Hospita reflux reflux 00 l disease) disease) Benign Benign Disease Active [facility] essential essential 09-17 HTN HTN 00:00: Hospita 00 l Overactive Overactive Disease Active M ethodi bladder bladder 09-17 00:00: Hospita 00 l Chest pain Chest pain Disease Active 0 M ethodi 09-17 00:00: Hospita 00 l Shortness Shortness Disease Active Met hodi of breath of breath 09-17 00:00: Hospita 00 l Gastric Gastric Disease Active [facility] catarrh catarrh 09-17 00:00: Hospita 00 l Hiatal Hiatal Disease Active [facility] hernia hernia 09-17 00:00: Hospita 00 l Hypothyroi Hypothyroi Disease Active M ethodi dism dism 09-17 00:00: Hospita 00 l 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 09-17 00:00: Hospita 00 l 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 09-17 disturbanc disturbanc 00:00: Ho spita e e 00 l Peripheral Peripheral Disease Active M ethodi blood blood 09-17 vessel vessel 00:00: Hospita disorder disorder 00 l Syncope Syncope Disease Active Method[facility] and and 09-17 collapse collapse 00:00: Hospit a 00 l Multiple-t Multiple-t Disease Active 0 M ethodi ype ype 09-17 hyperlipid hyperlipid 00:00: Ho spita emia emia 00 l Urinary Urinary Disease Active [facility]i tract tract 09-17 infection infection 00:00: Hosp karen 00 l Allergies, Adverse Reactions, Alerts Allergy Allergy Status Severity Reaction(s) Onset Inactive Treating Comm ents Source Name Type Date Date Clinician Pneumoco Propensi Active Severe Method i ccal ty to 01-22 adverse 00:00: reaction. Hospit a Ps reaction 00 l Vaccine s to drug Sulfa Propensi Active Methodi (Sulfona ty to 09-17 st mide adverse 00:00: Hospita Antibiot reaction 00 l ics) s to drug Family History Family Member Diagnosis Comments Start Date Stop Date Source Natural child [facility] Natural child Seizures [facility] Natural child Thyroid disease [facility] Natural father Cancer [facility] Natural mother Dementia [facility] Social History Social Habit Start Date Stop Date Quantity Comments Source History SDOH Social [facility] Connections Phone Hospita l History SDOH Social [facility]ctions [facility] History SDOH Social [facility] al History SDOH Social [facility] Membership History SDOH Social [facility] Meetings Exposure to Not sure [facility] SARS-CoV-2 (event) Hospit al Tobacco use and 2021-01-04 2021-01-04 Never used [facility] exposure 00:00:00 00:00:00 Hospital Alcohol intake 2021-01-04 2021-01-04 Current [facility] 00:00:00 00:00:00 non-drinker of Hospital alcohol (finding) History SDOH Social 2020-07-14 2020-07-14 4 [facility] Connections Living 00:00:00 00:00:00 Hospit al History SDOH 2020-07-14 2020-07-14 2 [facility] Med 00:00:00 00:00:00 Hospital History SDOH 2020-07-14 2020-07-14 2 [facility] Non-Med 00:00:00 00:00:00 Hospita l Tobacco Comment 2017-09-20 2017-09-[address] 00:00:00 00:00:00 continued Hospital cessation. History of tobacco 1984-05-15 Current smoker Me [facility] use 00:00:00 Hospital Sex Ass[birth year] At [birth year] [facility] 00:00:00 00:00:00 Hospital Smoking Status Start Date Stop Date Source Former smoker 2021-01-04 00:00:00 2021-01-04 00:00:00 [facility] Social History [facility] Medications Ordered Filled Start Stop Current Ordering Indication Dosage Frequency Signature Comments Components Source Medication Medication Date Date Medication? Clinician (SIG) Name Name cefTRIAXone 2020- No [id number] 1g Method[facility] (ROCEPHIN) 01-04 st injection 1 21:30: 10:00 Hospi ta g 00 :00 l aspirin 325 2020- No TAKE 1 Met hodi MG tablet 01-[address] 21:05: 00:00 MOUTH Hospita 01 :00 EVERY DAY l WITH FOOD fluticasone 2020- No 1{puff} QD Inhale 1 [facility] -umeclidin- 01-04 puff every s t vilanter 21:05: 00:00 morning. Hosp karen 100-62.5-25 01 :00 l mcg blister with device coenzyme 2020- No QD Take by Metho di Q10 (Co 01-[address] Q-10) 100 21:05: 00:00 daily. Hospi ta mg capsule 01 :00 l Lactobac 2020- No Take by Metho di no.41/Bifid 01-[address] obact no.7 21:05: 00:00 Hospit a (PROBIOTIC- : l 10 ORAL) famotidine Yes 40mg QD Take 40 mg M ethodi (PEPCID) 40 01-[address] MG tablet 20:59: daily. Hospit a 30 l omeprazole Yes 40mg QD Take 40 mg M ethodi (PriLOSEC) 01-[address] 40 MG 20:59: daily. Hospita capsule 30 l metroNIDAZO Yes 500mg Q.[id number] Take 500 [facility] LE (FLAGYL) 01-04 [id number] mg by s t 500 MG 20:59: 3D mouth 3 Hospita tablet 30 (three) l times a day. tiZANidine Yes [id number] 2mg Q6H Take 1 [facility] (ZANAFLEX) 01-04 [id number] tablet (2 st 2 MG tablet 00:00: mg total) H ospita 00 by mouth l every 6 (six) hours as needed for muscle spasms (or shoulder pain). HYDROcodone 2020- Yes [id number] 1{tbl} Q6H Take 1 [facility] -acetaminop 01-[address] hen ([place]) 00:00: 04:59 mouth Hosp karen 5-325 mg 00 :00 every 6 l per tablet (six) hours as needed for moderate pain or severe pain for up to 30 days .acute pain. Max Daily Amount: 4 tablets metroNIDAZO 2020- Yes [id number] 500mg Q.[id number] Take 1 [facility] LE (FlagyL) 01-[id number] 500 MG 00:00: 04:59 3D (500 mg Hospita tablet 00 :00 total) by l mouth 3 (three) times a day for 10 days. ciprofloxac 2020- Yes [id number] 500mg Q.5D Take 1 [facility] in (Cipro) 01-[address] 500 MG 00:00: 04:59 (500 mg Hospita tablet 00 :00 total) by l mouth 2 (two) times a day for 10 days. dicyclomine Yes Method i (BENTYL) 20 8-18 st mg tablet 00:00: Hospita 00 l tiZANidine 2020- No [id number] TAKE ONE Methodi (ZANAFLEX) 12-25 [id number] (1) st 2 MG tablet 00:00: 00:00 TABLET(S) Hospita 00 :00 BY MOUTH l TWICE A DAY NEEDED SHOULDER PAIN. potassium 2020- No [id number] TAKE ONE [facility] chloride 11-11- (1) st (KLOR-CON) 00:00: 00:00 TABLET(S) H ospita 10 MEQ CR 00 :00 BY MOUTH l tablet ONCE A DAY. Myrbetriq 2020- No [id number] TAKE ONE [facility] 50 mg 11-11- (1) st tablet 00:00: 00:00 TABLET(S) Hospi ta extended 00 :00 BY MOUTH l release 24 ONCE A hr DAY. metoprolol Yes [id number] TAKE ONE Methodi tartrate 10-21 (1) st (LOPRESSOR) 00:00: TABLET(S) H ospita 25 mg 00 BY MOUTH l tablet TWICE A DAY. furosemide Yes [id number] TAKE ONE [facility] (LASIX) 40 5-13 (1) st mg tablet 00:00: TABLET(S) Hos brenda 00 BY MOUTH l ONCE A DAY. pantoprazol Yes [id number] 40mg QD Take 1 Methodi e 3-02 tablet (40 st (PROTONIX) 00:00: mg total) Ho spita 40 MG EC 00 by mouth l tablet daily for 90 days. rosuvastati Yes [id number] 10mg QD Take 1 Methodi n (CRESTOR) - tablet (10 st 10 mg 00:00: mg total) Hospita tablet 00 by mouth l daily for 90 days. sertraline 2021- No [id number] 50mg QD Take 1 Methodi (Zoloft) 50 07-14 03-03 tablet (50 s t MG tablet 00:00: 05:59 mg total) Ho spita 00 :00 by mouth l daily. venlafaxine 2020- No [id number] 2 po qd [facility] XR (Effexor 07-14 for 7 days s t XR) 150 MG 00:00: 00:00 then 1 po H ospita 24 hr 00 :00 qd for 7 l capsule days then d/c ondansetron 2020- No [id number] 4mg Q8H Take 1 [facility] (Zofran) 4 07-14 tablet (4 st MG tablet 00:00: 00:00 mg total) Ho spita 00 :00 by mouth l every 8 (eight) hours as needed for nausea or vomiting. levothyroxi 2020- No [id number] 50ug QD Take 1 Methodi ne 07-14 tablet (50 st (SYNTHROID) 00:00: 00:00 mcg total) Hospita 50 mcg 00 :00 by mouth l tablet every morning. conjugated 2020- No [id number] Apply ext [facility] estrogens 07-[address] (Premarin) 00:00: 00:00 Hospit a 0.625 00 :00 l mg/gram vaginal cream potassium 2020- No [id number] 10meq QD Take 1 M ethodi chloride 07-14 tablet (10 st (KLOR-CON) 00:00: 00:00 mEq total) Hospita 10 MEQ CR 00 :00 by mouth l tablet daily. metoprolol 2020- No [id number] TAKE ONE Methodi tartrate 07-1409 (1) st (LOPRESSOR) 00:00: 00:00 TABLET(S) Hospita 25 mg 00 :00 BY MOUTH l tablet TWICE A DAY. acetaminoph 2020- No [id number] 1{tbl} Q24H Take 1 Method[facility] en-codeine 3-06 18- tablet by st (TYLENOL 00:00: 04:59 mouth Hospita WITH 00 :00 daily as l CODEINE #3) needed for 300-30 mg severe per tablet pain for up to 30 days .chronic pain. tiZANidine 2019-05- No [id number] TAKE ONE [facility] (ZANAFLEX) 08-13 [id number] (1) st 2 MG tablet 00:00: 00:00 TABLET(S) Hospita 00 :00 BY MOUTH l TWICE A DAY NEEDED SHOULDER PAIN. sucralfate 2019-05 Yes [id number] TAKE ONE [facility] (CARAFATE) 07-06 (1) st 1 gram 00:00: TABLET(S) Hospit a tablet 00 BY MOUTH l FOUR TIMES A DAY. potassium 2019-05 No [id number] 10meq QD Take 1 M ethodi chloride 06-30 tablet (10 st (KLOR-CON) 00:00: 00:00 mEq total) Hospita 10 MEQ CR 00 :00 by mouth l tablet daily. Myrbetriq 2019-05- No [id number] 50mg QD Take 1 [facility] 50 mg 06-21 06-30 tablet (50 st tablet 00:00: 00:00 mg total) Hospi ta extended 00 :00 by mouth l release 24 daily. hr metoprolol 2019-05- No [id number] TAKE ONE [facility] tartrate 06-16- (1) st (LOPRESSOR) 00:00: 00:00 TABLET(S) Hospita 25 mg 00 :00 BY MOUTH l tablet TWICE A DAY. furosemide 2019-05 No [id number] TAKE ONE [facility] (LASIX) 40 1-15 (1) st mg tablet 00:00: TABLET(S) Hos brenda 00 BY MOUTH l ONCE A DAY. venlafaxine 2019-05- No [id number] TAKE ONE [facility]i 225 MG 1- 03-02 (1) st tablet 00:00: 00:00 TABLET(S) Hospi ta extended 00 :00 BY MOUTH l release ONCE A 24hr 24 hr DAY. tablet potassium [id number] TAKE ONE [facility] chloride -14 12-16 (1) st (KLOR-CON) 00:00: 00:00 TABLET(S) H ospita 10 MEQ CR 00 :00 BY MOUTH l tablet ONCE A DAY. metoprolol [id number] TAKE ONE [facility] tartrate 01-15 12-02 (1) st (LOPRESSOR) 00:00: 00:00 TABLET(S) Hospita 25 mg 00 :00 BY MOUTH l tablet TWICE A DAY. venlafaxine No [id number] TAKE ONE [facility] 225 MG 01-06 (1) st tablet 00:00: 00:00 TABLET(S) Hospi ta extended 00 :00 BY MOUTH l release ONCE A 24hr 24 hr DAY. tablet metoprolol [id number] TAKE ONE [facility] tartrate 01-0603 (1) st (LOPRESSOR) 00:00: 13:00 TABLET(S) Hospita 25 mg 00 :47 BY MOUTH l tablet TWICE A DAY. levothyroxi No [id number] TAKE ONE Methodi ne 12-07- (1) st (SYNTHROID) 00:00: 00:00 TABLET(S) Hospita 50 mcg 00 :00 BY MOUTH l tablet EVERY MORNING. rosuvastati No [id number] TAKE ONE Methodi n (CRESTOR) 12-07- (1) st 10 mg 00:00: 00:00 TABLET(S) Hospit a tablet 00 :00 BY MOUTH l ONCE A DAY. pantoprazol No [id number] TAKE ONE Methodi e 10-20 (1) st (PROTONIX) 00:00: 00:00 TABLET(S) H ospita 40 MG EC 00 :00 BY MOUTH l tablet ONCE A DAY. conjugated 2020- No [id number] .5g QD Insert 0.5 [facility] estrogens 09-04-[address] (PREMARIN) 00:00: 00:00 vagina Hosp karen 0.625 00 :00 nightly as l mg/gram needed vaginal (irritatio cream n). Premarin 0.625 mg/gram vaginal cream tiZANidine No [id number] TAKE ONE [facility] (ZANAFLEX) 09-04- [id number] (1) st 2 MG tablet 00:00: 00:00 TABLET(S) Hospita 00 :00 BY MOUTH l TWICE A DAY NEEDED SHOULDER PAIN. sucralfate 2019- No [id number] TAKE ONE [facility] (CARAFATE) 09-04 (1) st 1 gram 00:00: 00:00 TABLET(S) Hospi ta tablet 00 :00 BY MOUTH l FOUR TIMES A DAY. Myrbetriq 2019- No [id number] 50mg QD Take 1 [facility] 50 mg 09-04- tablet (50 st tablet 00:00: 00:00 mg total) Hospi ta extended 00 :00 by mouth l release 24 daily. hr furosemide 2019- No [id number] 40mg QD Take 1 M ethodi (LASIX) 40 09-04 11-15 tablet (40 st mg tablet 00:00: 00:00 mg total) Ho spita 00 :00 by mouth l daily. potassium No [id number] 10meq QD Take 1 M ethodi chloride 09-04 09-14 tablet (10 st (KLOR-CON) 00:00: 12:43 mEq total) Hospita 10 MEQ CR 00 :00 by mouth l tablet daily for 90 days. venlafaxine 2019- No [id number] 225mg QD Take 1 [facility] 225 MG 09-04 08-[address] tablet 00:00: 00:00 (225 mg Hospita extended 00 :00 total) by l release mouth 24hr 24 hr daily. tablet metoprolol 2019- No [id number] TAKE ONE [facility] tartrate 09-04-25 (1) st (LOPRESSOR) 00:00: 00:00 TABLET(S) Hospita 25 mg 00 :00 BY MOUTH l tablet TWICE A DAY. estradioL Yes [facility] (ESTRACE) 08-21 st 0.01 % (0.1 00:00: Hospit a mg/gram) 00 l vaginal cream estradiol 2020- No [id number] 1g Q2D Insert 1 g [facility] (ESTRACE) 06-[address] 0.01 % (0.1 00:00: 05:59 vagina Hos brenda mg/gram) 00 :00 every l vaginal other day. cream Acetaminoph No Notes: Do M emoria en 12-07 not exceed l 16:37: 4 gm/day. Hong 00 (Same as: Tylenol) Acetaminoph No Notes: Do M emoria en 12-07 not exceed l 16:37: 4 gm/day. Hong 00 (Same as: Tylenol) Bacitracin Yes 1 appl, Chava natividad 0.5 UNT/MG 12-07 TOP, TID, l Topical 14:03: Apply a Hong Ointment 00 thin layer to affected area, X 7 day, # 30 gm, 0 Refill(s) [place] Nasal Yes 1 appl, Mem oria Moisturizer 12-07 TOP, BID, l topical gel 14:03: PRN as Herm shanice 00 needed for dry skin, # 5 gm, 0 Refill(s) Bacitracin Yes 1 appl, Chava natividad 0.5 UNT/MG 12-07 TOP, TID, l Topical 14:03: Apply a Hong Ointment 00 thin layer to affected area, X 7 day, # 30 gm, 0 Refill(s) [place] Nasal Yes 1 appl, Mem oria Moisturizer 12-07 TOP, BID, l topical gel 14:03: PRN as Herm shanice 00 needed for dry skin, # 5 gm, 0 Refill(s) Morphine 2018-0 No 2 mg, Memoria 12-07 Route: l 10:51: IVP, ONCE, Dosing Weight 77.273, kg, Priority: STAT, Start date: 12/07/18 5:51:00 CDT, Stop date: 12/07/18 5:51:00 CDT Morphine 2018-0 No 2 mg, Memoria 12-07 Route: l 10:51: IVP, ONCE, Dosing Weight 77.273, kg, Priority: STAT, Start date: 12/07/18 5:51:00 CDT, Stop date: 12/07/18 5:51:00 CDT bacitracin 2018-2020- No 1 appl, Met hodi 500 12-07 0823 TOP, TID, st unit/gram 00:00: 00:00 Apply a Hosp karen ointment 00 :00 thin layer l to affected area, X 7 day, # 30 gm, 0 Refill(s) sodium 2020- No 1 appl, [facility] chloride 12-07 TOP, BID, st ([place] 00:00: 00:00 PRN as Hospita Nasal) 0.65 00 :00 needed for l % nasal dry skin, spray # 5 gm, 0 Refill(s) Immunizations Ordered Immunization Filled Immunization Date Status Commen ts Source Name Name Influenza, 2019-04-28 Completed [facility] Unspecified 00:00:00 Hospital FLUZONE HIGH-DOSE PF 2018-01-18 Completed [facility] odist 00:00:00 Hospital Pneumococcal 2018-01-18 Completed [facility] Polysaccharide 00:00:00 Hospital Pneumococcal 2017-04-17 Completed [facility] Conjugate 13-Valent 00:00:00 Hospi nena Influenza, 2017-02-09 Completed [facility] Unspecified 00:00:00 Hospital Pneumococcal 2016-03-14 Completed [facility] Conjugate 13-[facility]ent 00:00:00 [facility] FLUZONE HIGH-DOSE PF 2016-02-16 Completed Meth odist 00:00:00 Hospital Td, Unspecified 2013-11-17 Completed [facility] 00:00:00 Hospital Zoster 2013-02-12 Completed [facility] 00:00:00 Hospital Vital Signs Vital Name Observation Time Observation Value Comments Source Systolic blood 2021-01-04 20:50:00 130 mm[Hg] [facility] Hospital pressure Diastolic blood 2021-01-04 20:50:00 72 mm[Hg] [facility] pressure Heart rate 2021-01-04 20:50:00 72 /min [facility] Respiratory rate 2021-01-04 20:50:00 18 /min [facility]ist [facility] Body height 2021-01-04 20:50:00 160 cm [facility] Body weight 2021-01-04 20:50:00 79.379 kg [facility] BMI 2021-01-04 20:50:00 31.00 kg/m2 [facility] Oxygen saturation in 2021-01-04 20:50:00 96 /min [facility] Arterial blood by Pulse oximetry Systolic (mm Hg) 2018-12-07 17:38:00 Chava Pitts Diastolic (mm Hg) 2018-12-07 17:38:00 Mem orial [place] Temperature Oral (F) 2018-12-07 17:38:00 98.5 F [facility] [place] Respitory Rate 2018-12-07 17:38:00 Memori al [place] Systolic (mm Hg) 2018-12-07 10:00:00 Chava rial [place] Diastolic (mm Hg) 2018-12-07 10:00:00 Mem orial [place] Respitory Rate 2018-12-07 10:00:00 Memori al [place] Respitory Rate 2018-12-07 08:25:00 Memori al [place] Systolic (mm Hg) 2018-12-07 08:25:00 Chava rial [place] Diastolic (mm Hg) 2018-12-07 08:25:00 Mem orial [place] Temperature Oral (F) 2018-12-07 06:56:00 98.2 F [facility] [place] Heart Rate 2018-12-07 06:56:00 [facility] [place] Weight 2018-12-07 05:38:00 [facility] [place] BMI Cal[facility] 2018-[facility]07 [facility] [place] Height 2018-12-07 05:38:00 157.48 cm [facility] [place] Temperature Oral (F) 2018-12-07 05:38:00 97.6 F [facility] [place] Heart Rate 2018-12-07 05:38:00 [facility] [place] Procedures Procedure Date / Time Performing Clinician Source Performed CONSULT GYNECOLOGY 2021-01-01 00:00:00 Provider, Historical [facility] CONSULT GYNECOLOGY 2020-12-23 00:00:00 Provider, Historical [facility] EYE EXAM 2020-10-16 00:00:00 Provider, Historical [facility] IP CONSULT TO 2020-10-06 00:00:00 Provider, Historical [facility] GASTROENTEROLOGY T4, FREE 2020-07-14 19:21:00 [facility] CBC WITH PLATELET AND 2020-07-14 19:21:00 [facility] DIFFERENTIAL CREATINE KINASE, TOTAL 2020-07-14 19:21:00 [facility] ([facility]) VITAMIN B12 LEVEL 2020-07-14 19:21[facility] B NATRIURETIC PEPTIDE 2020-07-14 19:21:00 Nataly Tellez [facility] XR CHEST 2 VW 2020-07-14 19:10:10 Nataly Tellez [facility] HEMOGLOBIN A1C 2020-07-08 15:09:[facility] LIPID PANEL 2020-07-08 15:09:00 [facility] COMPREHENSIVE METABOLIC 2020-07-08 15:09:00 [facility] PANEL THYROID STIMULATING HORMONE 2020-07-08 15:09:00 [facility] kalyan [facility] Plan of Care Planned Activity Planned Date Details Comments Source Future Scheduled Test COVID-19 VACCINE (1) [facility] [code = COVID-19 VACCINE (1)] Future Scheduled Test SHINGLES VACCINES (#2) [facility] [code = SHINGLES VACCINES (#2)] Future Scheduled Test INFLUENZA VACCINE [facility] [code = INFLUENZA VACCINE] Encounters Start End Encounter Admission Attending Care Care Encounter Source Date/Time Date/Time Type Type Clinicians Facility Department ID 2021-01-05 2021-01-05 Telephone Rosalinda 1.2.840.1 [id number] [facility] 00:00:00 00:00:[address] 3.430.2.7 Hospit a .3.837268 l .8 2021-01-04 2021-01-04 Lab Rosalinda 1.2.840.1 [id number] [facility] 17:00:35 17:05:[address] 3.430.2.7 Hospit a .3.352591 l .8 2021-01-04 2021-01-04 Office Rosalinda 1.2.840.1 [id number] [facility] 15:18:07 16:51:17 Visit Nataly Page50.1.[address] 3.430.2.7 Hospit a .3.188570 l .8 2021-01-04 2021-01-04 Outpatient GERTEISEN, [facility] [id number] [place] 00:00:00 00:00:[address] NATALY [address] 2021-01-04 2021-01-04 Travel 1.2.840.1 1.2.626.298 [id number] Method[facility] 00:00:00 00:00:[address] 3.430.2.7 0.2.7.3.698 Ho spita .3.162429 084.8 l .8 2021-01-04 2021-01-04 Outpatient GERTEISEN, [facility] [id number] Nelson 00:00:00 00:00:[address] NATALY [address] 2021-01-01 2021-01-01 Orders Provider, 1.2.840.1 [id number] Methodi 00:00:00 00:00:00 Only Historical 31190.1.1 772 s t 3.430.2.7 Hospit a .3.184557 l .8 2020-12-30 2020-12-30 Telephone Gerteisen, 1.2.840.1 [id number] Methodi 00:00:00 00:00:[address] 3.430.2.7 Hospit a .3.287650 l .8 2020-12-25 2020-12-25 Refill Gerteisen, 1.2.840.1 [id number] Methodi 00:00:00 00:00:[address] 3.430.2.7 Hospit a .3.235694 l .8 2020-12-24 2020-12-24 Orders Provider, 1.2.840.1 [id number] Methodi 00:00:00 00:00:00 Only Historical 11044.1.1 151 s t 3.430.2.7 Hospit a .3.784443 l .8 2020-11-09 2020-11-09 Refill Gerteisen, 1.2.840.1 [id number] Method[facility] 00:00:00 00:00:[address] 3.430.2.7 Hospit a .3.242607 l .8 2020-10-20 2020-10-20 Refill Gerteisen, 1.2.840.1 [id number] Methodi 00:00:00 00:00:[address] 3.430.2.7 Hospit a .3.214861 l .8 2020-10-16 2020-10-16 Orders Provider, 1.2.840.1 [id number] [facility]i 00:00:00 00:00:00 Only Historical 55478.1.1 441 s t 3.430.2.7 Hospit a .3.354772 l .8 2020-10-07 2020-10-07 Orders Provider, 1.2.840.1 [id number] [facility] 00:00:00 00:00:00 Only Historical 69554.1.1 163 s t 3.430.2.7 Hospit a .3.479731 l .8 2020-09-23 2020-09-23 Refill Gerteisen, 1.2.840.1 [id number] Methodi 00:00:00 00:00:[address] 3.430.2.7 Hospit a .3.745737 l .8 2020-09-07 2020-09-07 Telephone Gerteisen, 1.2.840.1 [id number] Method[facility] 00:00:00 00:00:[address] 3.430.2.7 Hospit a .3.739800 l .8 2020-08-31 2020-08-31 Telephone Gerteisen, 1.2.840.1 [id number] 2 [id number] Methodi 00:00:00 00:00:[address] 3.430.2.7 Hospit a .3.154051 l .8 2020-08-31 2020-08-31 Telephone Gerteisen, 1.2.840.1 [id number] [facility]i 00:00:00 00:00:[address] 3.430.2.7 Hospit a .3.669932 l .8 2020-07-17 2020-07-17 Telephone Gerteisen, 1.2.840.1 [id number] [facility] 00:00:00 00:00:[address] 3.430.2.7 Hospit a .3.924366 l .8 2020-07-16 2020-07-16 Telephone Denzel, 1.2.840.1 [id number] Methodi 00:00:00 00:00:[address] 3.430.2.7 Hospit a .3.535151 l .8 2020-07-16 2020-07-16 Telephone Gerteisen, 1.2.840.1 [id number] Methodi 00:00:00 00:00:[address] 3.430.2.7 Hospit a .3.649142 l .8 2020-07-15 2020-07-15 Telephone Gerteisen, 1.2.840.1 [id number] Methodi 00:00:00 00:00:00 Nataly Mur[address]Erick [address] 3.430.2.7 Hospit a .3.066718 l .8 2020-07-14 2020-07-14 Lab Gerteisen, 1.2.840.1 [id number] Methodi 13:21:25 13:26:[address] 3.430.2.7 Hospit a .3.497003 l .8 2020-07-14 2020-07-14 Office Gerteisen, 1.2.840.1 [id number] [facility] 11:38:20 12:55:30 Visit Nataly Momin 27147.1.[address] 3.430.2.7 Hospit a .3.602430 l .8 2020-07-14 2020-07-14 Outpatient GERTEISEN, [facility] 2100 [id number] Nelson 00:00:00 00:00:00 NATALY [address] 2020-07-14 2020-07-14 Travel 1.2.840.1 1.2.999.316 [id number] Methodi 00:00:00 00:00:[address] 3.430.2.7 0.2.7.3.698 Ho spita .3.380891 084.8 l .8 2020-07-14 2020-07-14 Refill Gerjacksonisen, 1.2.840.1 [id number] [id number] Methodi 00:00:00 00:00:00 Nataly Momin 81841.1.[address] 3.430.2.7 Hospit a .3.239447 l .8 2020-07-14 2020-07-14 Outpatient GERTEISEN, [facility] 2100 [id number] Nelson 00:00:00 00:00:00 NATALY [address] 2020-07-14 2020-07-14 Outpatient GERTEISEN, [facility] 2099 [id number] Nelson 00:00:00 00:00:00 NATALY [address] 2020-07-08 2020-07-08 Lab Rosalinda, 1.2.840.1 [id number] Methodi 08:58:59 09:03:59 Nataly Momin 50486.1.[address] 3.430.2.7 Hospit a .3.961617 l .8 2020-07-08 2020-07-08 Outpatient GERTEISEN, [facility] [id number] [place] 00:00:00 00:00:00 NATALY [address] 2020-07-07 2020-07-07 Telephone Denzel, 1.2.840.1 [id number] Methodi 00:00:00 00:00:[address] 3.430.2.7 Hospit a .3.257404 l .8 2020-06-04 2020-06-04 Telephone Gerteisen, 1.2.840.1 [id number] 2 [id number] Methodi 00:00:00 00:00:[address] 3.430.2.7 Hospit a .3.452970 l .8 2020-06-03 2020-06-03 Travel 1.2.840.1 1.2.225.432 [id number] Methodi 00:00:00 00:00:[address] 3.430.2.7 0.2.7.3.698 Ho spita .3.666505 084.8 l .8 2020-05-26 2020-05-26 Refill Gerteisen, 1.2.840.1 [id number] 851 [id number] Methodi 00:00:00 00:00:[address] 3.430.2.7 Hospit a .3.028828 l .8 2020-05-12 2020-05-12 Refill Gerteisen, 1.2.840.1 [id number] 551 [id number] Methodi 00:00:00 00:00:[address] 3.430.2.7 Hospit a .3.876746 l .8 2020-05-05 2020-05-05 Refill Gerteisen, 1.2.840.1 [id number] 020 [id number] Methodi 00:00:00 00:00:[address] 3.430.2.7 Hospit a .3.272316 l .8 2020-04-29 2020-04-29 Orders Gerteisen, 1.2.840.1 [id number] [id number] Methodi 00:00:00 00:00:00 Only Nataly Momin 20038.1.[address] 3.430.2.7 Hospit a .3.955922 l .8 2020-04-20 2020-04-20 Orders Gerteisen, 1.2.840.1 [id number] Methodi 00:00:00 00:00:00 Only Nataly Momin 96700.1.[address] 3.430.2.7 Hospit a .3.559820 l .8 2020-04-15 2020-04-15 Refill Gerteisen, 1.2.840.1 [id number] 290 [id number] Methodi 00:00:00 00:00:[address] 3.430.2.7 Hospit a .3.785213 l .8 2020-04-13 2020-04-13 Telephone Gerteisen, 1.2.840.1 [id number] 2 [id number] Methodi 00:00:00 00:00:[address] 3.430.2.7 Hospit a .3.757147 l .8 2020-03-28 2020-03-28 Refill Gerteisen, 1.2.840.1 [id number] 282 [id number] Methodi 00:00:00 00:00:[address] 3.430.2.7 Hospit a .3.601133 l .8 2020-03-15 2020-03-15 Refill Gerteisen, 1.2.840.1 [id number] 196 [id number] Methodi 00:00:00 00:00:[address] 3.430.2.7 Hospit a .3.871622 l .8 2020-02-21 2020-02-21 Travel 1.2.840.1 1.2.678.131 3734 [id number] Methodi 00:00:00 00:00:[address] 3.430.2.7 0.2.7.3.698 Ho spita .3.330929 084.8 l .8 2020-01-27 2020-01-27 Refill Gerteisen, 1.2.840.1 [id number] Methodi 00:00:00 00:00:[address] 3.430.2.7 Hospit a .3.186426 l .8 2020-01-14 2020-01-14 Refill Gerteisen, 1.2.840.1 [id number] 788 [id number] Methodi 00:00:00 00:00:[address] 3.430.2.7 Hospit a .3.717125 l .8 2020-01-07 2020-01-07 Refill Gerteisen, 1.2.840.1 [id number] 790 [id number] Methodi 00:00:00 00:00:[address] 3.430.2.7 Hospit a .3.072722 l .8 2019-12-05 2019-12-05 Outpatient GERTEISEN, [facility] 2100 [id number] [place] 00:00:00 00:00:00 NATALY [address] 2019-10-31 2019-10-31 Outpatient GERTEISEN, [facility] 2100 [id number] [place] 00:00:00 00:00:00 NATALY 976 Method i 2019-09-05 2019-09-05 Outpatient GERTEISEN, [facility] 2100 [id number] [place] 00:00:00 00:00:00 NATALY 740 Method i 2018-12-07 2018-12-07 Emergency [facility] [id number] Memoria 05:15:00 17:40:[address] 2018-12-07 2018-12-07 Emergency [facility] [id number] Memoria 05:15:00 17:40:[address] 2018-12-07 2018-12-07 Outpatient Karishma [facility] [id number] 00:15:00 12:40:00 [place] [address] 2018-12-07 2018-12-07 Emergency E [facility] 9207 [facility] 00:15:00 00:15:00 Results Test Description Test Time Test Comments Results Result Comments Source Creatine kinase, total (CPK) 2020-07-16 04:43:00 Test Item Value Reference Range Interpretation Comme nts Creatine kinase (test code = 2157-6) 114 U/L 29-143 RAC (test code = RAC) [facility] ettji8440[facility]94 04:43:00 Test Item Value Reference Range Interpretation Comments Vitamin B12 (test code = 2132-9) >2000 200-1100 H RAC (test code = RAC) Lab Interpretation (test code = Abnormal 25452-0) [facility] geyy3818-18-79 04:43:00 Test Item Value Reference Range Interpretation Comments T4, free (test code = 3024-7) 1.0 ng/dL 0.8-1.8 RAC (test code = RAC) [facility] and kcbyyvcbtamz3909-28-76 04:43:00 Test Item Value Reference Range Interpretation Comments WBC (test code = 6690-2) See_Comment [A utomated message] The system [employer] generated this result transmit blake reference range : 3.8 - 10.8 Thousand /uL. The reference r sandeep was not used to interpret this result as normal/abnormal . RBC (test code = 789-8) See_Comment [Au tomated message] The system [employer] generated this result transmit blake reference range : 3.80 - 5.10 Million/uL. The reference range was not used to interpret this result as normal/abnormal . HGB (test code = 718-7) 11.3 g/dL 11.7-15.5 L HCT (test code = 4544-3) 36.7 % 35.0-45.0 MCV (test code = 787-2) 82.5 fL 80.0-100.0 MCH (test code = 785-6) 25.4 pg 27.0-33.0 L MCHC (test code = 786-4) 30.8 g/dL 32.0-36.0 L RDW (test code = 788-0) 14.3 % 11.0-15.0 Platelet count (test See_Comment [Autom ated message] code = 777-3) The system [employer] generated this result transmit blake reference range : 140 - 400 Thousand/ uL. The reference r sandeep was not used to interpret this result as normal/abnormal . MPV (test code = 776-5) 12.2 fL 7.5-12.5 Neutrophils, absolute See_Comment [Auto mated message] (test code = 751-8) The syst em which generated this result transmit blake reference range : 1,500 - 7,800 cells/uL. The reference range was not used to interpret this result as normal/abnormal . Lymphocytes, absolute See_Comment [Auto mated message] (test code = 731-0) The syst em which generated this result transmit blake reference range : 850 - 3,900 cells/u L. The reference r sandeep was not used to interpret this result as normal/abnormal . Monocytes, absolute See_Comment [Automa blake message] (test code = 742-7) The syst em which generated this result transmit blake reference range : 200 - 950 cells/uL. The reference range was not used to interpret this result as normal/abnormal . Eosinophils, absolute See_Comment [Auto mated message] (test code = 711-2) The syst em which generated this result transmit blake reference range : 15 - 500 cells/uL. The reference range was not used to interpret this result as normal/abnormal . Basophils, absolute See_Comment [Automa blake message] (test code = 704-7) The syst em which generated this result transmit blake reference range : 0 - 200 cells/uL. T he reference range was not used to interpret this result as normal/abnormal . Neutrophils (test code = 56.2 % 770-8) Lymphocytes (test code = 27.9 % 736-9) Monocytes (test code = 8.7 % 5905-5) Eosinophils (test code = 6.1 % 713-8) Basophils + RC (test 1.1 % code = 706-2) RAC (test code = RAC) Lab Interpretation (test Abnormal code = 18731-0) [facility] natriuretic oekuibn1578-86-79 20:42:00 Test Item Value Reference Range Interpretation Comments BNP (test code = 11013-6) 53 pg/mL <100 RAC (test code = RAC) [facility]UxttxkdsSISUYKVUJB1278-69-33 06:39:97172NbrbhcnaUK HealthcareATOLOGY 2018-12-07 06:39:0014.3[facility] ZpuafafNLRAPBVKDZ7102-64-78 06:39:0033.4MeUK HealthcareGmjyfxcUSDFXPZKUT3584-82-61 06:39:00 Test Item Value Reference Range Interpretation Comments MCH (test code = MCH) 29.8 pg 27.0-31.0 [facility] MgpmtdaEIWFYXCLWR2955-27-40 06:39:0089.0[facility]annHEMATOLOGY 2018-12-07 06:39:0037.5[facility] PgvspanKAEYKUXLBO1989-50-64 06:39:004.21[facility] OxlgyibYYGKKJZHCU1451-32-18 06:39:0012.5[facility] CisiildMOVTMXKHEO4156-86-72 06:39:0011.5[facility] VvdymcvPFOXABQOTE7082-71-37 06:39:008.7[facility] [place] VZUYIMOOXA4843-97-32 06:39:00 Test Item Value Reference Range Interpretation Comments PTT (test code = PTT) 29.9 s 22.9-35.8 [facility] BODARIO5671-10-76 06:39:00Negative (12/07/18 1:39 AM) [facility] YPVTBLD9089-68-32 06:39:00Negative (12/07/18 1:39 AM) [facility]annCARDIAC OLZXGIW1807-72-80 06:39:00<0.02[facility] [place] VTEMKYIRZIVH3761-76-23 06:39:0011.3[facility] DkubynzVBWEQCRTHJMQ8467-96-66 06:39:000.92[facility] TohrdsfZRGQJHYGQJAL2797-90-01 06:39:68661Hzgmmoow [place] FOLBODKWHQKU6870-31-58 06:39:0021[facility] WfgleksECEISDPOZVVQ3115-09-10 06:39:00 4.3[facility] QyskourUGCGMDCLSDRM3431-61-10 06:39:68595Cknslwhm [place] OZJNAZUJSBYZ0145-01-48 06:39:0026[facility] AsjranpOBAZBKJJRBKZ7813-80-37 06:39:00 9.1[facility] DztqwtmCYESHTYSBZCA5050-98-66 06:39:0059[facility] HermannELECTROLYTES 2018-12-07 06:39:64450Cyswomqy JmliqnsXAVVVUDCSV5167-19-83 06:39:0077.4[facility] SdvdurdMZZPRUWPPT0275-70-75 06:39:0014.6[facility] KbwpdmuTCSOPLPGPJ5867-98-54 06:39:000.1[facility] JdzwmsnMIQWJZWOVQ7110-49-82 06:39:000.1[facility] [place] AOUTRCAZPC9433-83-32 06:39:000.7[facility] CjyvehmGRRTYMLIKY0717-12-14 06:39:001.3 [facility] XyxyskpUJYLXYTLJH1523-95-42 06:39:006.0[facility]annHEMATOLOGY 2018-12-07 06:39:008.9[facility] DjddhcwGJVLDWLXES6596-45-52 06:39:000.7[facility] LdccksdUYWCYEJDAT3663-59-02 06:39:001.7[facility] TbyjoqmOBEVQCWNJA7761-84-92 06:39:000.0[facility] GwtxnddDBFYELRBBH3155-11-48 06:39:008.7[facility] [place] CATUITUVYJ7388-76-26 06:39:00 Test Item Value Reference Range Interpretation Comments Max Amplitude Rapid (test code = Max 63 mm 52-71 Amplitude Rapid) [facility]NlwmnamIVGKZLLXNW5768-88-83 06:39:00 Test Item Value Reference Range Interpretation Comments Split Point Rapid (test code = Split 0.5 min Point Rapid) [facility] HospitalWfgvswaQCPXJYRIMI6701-15-29 06:39:00 Test Item Value Reference Range Interpretation Comments R-time Rapid (test code = R-time 0.6 min 0.4-0.7 Rapid) [facility] HospitalDzgxgfrRAONUQEESK5119-94-66 06:39:00 Test Item Value Reference Range Interpretation Comments K-time Rapid (test code = K-time 1.5 min 0.6-2.3 Rapid) [facility] HospitalPfrcnnzXUMYHQBQGY9702-61-74 06:39:00 Test Item Value Reference Range Interpretation Comments Angle Rapid (test code = Angle 73 degrees 64-80 Rapid) [facility] HospitalVphinifWKELOUTROB9808-33-98 06:39:00 Test Item Value Reference Range Interpretation Comments ACT (TEG) Rapid (test code = ACT (TEG) 105 s 86-118 Rapid) [facility] HospitalVhcldrnFUAXFQGQZU7882-09-62 06:39:00 Test Item Value Reference Range Interpretation Comments PT (test code = PT) 12.8 s 12.0-14.7 [facility] WxibmhkTGSQIUQUOO8534-87-16 06:39:00 Test Item Value Reference Range Interpretation Comments INR (test code = INR) 0.98 1 0.85-1.17 [facility] ObwmddkEVRPAFKGSC8718-85-54 06:39:23327Ejsgysfl HermannHEMATOLOGY 2018-12-07 06:39:0014.3[facility] DrwdftgIWUVYHEEZL3828-20-32 06:39:0033.4[facility] CnsixxxXUBNQFSCQS4169-73-73 06:39:00 Test Item Value Reference Range Interpretation Comments MCH (test code = MCH) 29.8 pg 27.0-31.0 [facility] WpmfnceSESDAMPIEU0043-51-25 06:39:0089.0[facility] HermannHEMATOLOGY 2018-12-07 06:39:0037.5[facility] FrcfxnrGUPRXAZHCD2954-79-90 06:39:004.21[facility] FlcpboyTVUAXFCCAH4354-17-17 06:39:0012.5[facility] OjzlcbdLXZDJCBNSU7616-31-24 06:39:0011.5[facility] WqvfkimQPCLFDVKBP8297-26-23 06:39:008.7[facility] [place] ZHYXPIXBUE9796-78-66 06:39:00 Test Item Value Reference Range Interpretation Comments PTT (test code = PTT) 29.9 s 22.9-35.8 [facility] HermannCARDIAC QQBCYUP3245-92-73 06:39:00<0.02[facility] [place] TXGUCCZMHFOC4149-28-36 06:39:0011.3[facility] FgwpdfqHPLEHJJUQERU6633-13-62 06:39:000.92[facility] FwzlhngPYDXMPFKWKDY7779-95-89 06:39:76678Atbgzhms Hong VJVTIFEGSRTE1086-97-24 06:39:0021[facility] EjpozijHHFOIASJSVTB2207-01-56 06:39:00 4.3[facility] CwkruiqXRCDUEHGGWEQ5567-90-82 06:39:50655Fxzhwewi Hong YJTOBTBVEFKK1090-01-90 06:39:0026[facility] NjxhafvYWFMTCXICYBZ6192-88-85 06:39:00 9.1[facility] OnykrarTRIVELMEXTOA9680-75-71 06:39:0059[facility] HermannELECTROLYTES 2018-12-07 06:39:32332Hkdbjyqq ReiurwwIMTSCSDOBE4320-44-17 06:39:0077.4[facility] VyhzjkvSFLLDKNZCO7872-21-87 06:39:0014.6[facility] KfxcxrlEEMPBHCLLV8637-92-15 06:39:000.1[facility] EsqacibBCLOXACDNP7349-69-43 06:39:000.1[facility] [place] SNDXSQFEFF7691-46-03 06:39:000.7[facility] BelkufoPQIGTUPBSH5792-11-08 06:39:001.3 [facility] AhapjhkROQVIIUDAX6078-14-21 06:39:006.0[facility] HermannHEMATOLOGY 2018-12-07 06:39:008.9[facility] GidvcimJOQZEAGKSS9842-81-95 06:39:000.7[facility] GjneevhYBCKBMXWPQ7112-02-27 06:39:001.7[facility] DdstyynEQFYDANXTO4810-09-34 06:39:000.0[facility] FtebykyXAUGPQUNGS5567-61-41 06:39:008.7[facility] [place] TFRFEPEJAC8413-73-44 06:39:00 Test Item Value Reference Range Interpretation Comments Max Amplitude Rapid (test code = Max 63 mm 52-71 Amplitude Rapid) [facility]andUrhtxeqNDIXEZFJKJ7675-65-07 06:39:00 Test Item Value Reference Range Interpretation Comments Split Point Rapid (test code = Split 0.5 min Point Rapid) [facility]andOcnaoqxOBRMPMLSOT3611-97-96 06:39:00 Test Item Value Reference Range Interpretation Comments R-time Rapid (test code = R-time 0.6 min 0.4-0.7 Rapid) [facility]ellandUzqrtlsUELTWAITCU5755-08-55 06:39:00 Test Item Value Reference Range Interpretation Comments K-time Rapid (test code = K-time 1.5 min 0.6-2.3 Rapid) [facility]ellandUefodlpGBRTGZHINY3574-51-44 06:39:00 Test Item Value Reference Range Interpretation Comments Angle Rapid (test code = Angle 73 degrees 64-80 Rapid) [facility] HospitalMqhfnvxWWHPQUFXKO1603-84-82 06:39:00 Test Item Value Reference Range Interpretation Comments ACT (TEG) Rapid (test code = ACT (TEG) 105 s 86-118 Rapid) [facility] HospitalHgkrhvrPPLFWKDAJU6222-33-66 06:39:00 Test Item Value Reference Range Interpretation Comments PT (test code = PT) 12.8 s 12.0-14.7 [facility] HospitalCnknipjPETTETEFVF9893-99-48 06:39:00 Test Item Value Reference Range Interpretation Comments INR (test code = INR) 0.98 1 0.85-1.17 [facility]
[2021-01-05 18:25] LABS: Absolute Lymphocytes (CBC) 1.8 K/uL (0.7-4.9); Basophils % 1.3 % (0-1.3); Hematocrit 35.8 % (36.0-45.0); Lymphocytes % 22.1 % (15.3-44.8); MPV 8.6 fL (7.6-11.3); RBC Red Blood Cell Count 4.64 M/uL (3.86-4.86)
[2021-01-05 18:49] LABS: ALT/SGPT 32 U/L (12-78); AST/SGOT 29 U/L (15-37); Albumin 3.8 g/dL (3.4-5.0); Alkaline Phosphatase 72 U/L (45-117); BUN Blood Urea Nitrogen 16 mg/dL (7-18); Bicarbonate 27 mmol/L (21-32); Bilirubin Direct < 0.1 mg/dL (0-0.2); Bilirubin Total 0.3 mg/dL (0.2-1.0); Glucose Level 137 mg/dL (74-106); Lipase 251 U/L (73-393); Potassium 3.9 mmol/L (3.5-5.1); Protein, Total 7.6 g/dL (6.4-8.2); Sodium Level 142 mmol/L (136-145)
--- NOTE | 2021-01-05 18:59 | RAD REPORT ---
EXAM DESCRIPTION: CT - Abdomen Pelvis Wo Contrast - 01/05/2021 6:47 pm CLINICAL HISTORY: Abdominal pain. ABD PAIN COMPARISON: No comparisons TECHNIQUE: CT imaging of the abdomen and pelvis was performed without contrast. Solid organ, bowel a nd vascular assessment is limited due to lack of IV and oral contrast. All CT scans are performed using dose optimization technique as appropriate and may include automated exposure control or mA/KV adjustment according to patient size. FINDINGS: The lower lung banks are clear.Coronary artery calcifications. Small hiatal hernia. Too small to characterize low-density lesion in the posterior right hepatic lobe is statistically blayne ign. Cholecystectomy. No adrenal lesions. The spleen is unremarkable. The pancreas is within normal l imits. Right renal sinus cyst. No hydronephrosis. Bladder is unremarkable. Hysterectomy. No bowel obs truction. Prior appendectomy. Diverticulosis without diverticulitis.Cholecystectomy atherosclerosis. No bowel obstruction, free air, free fluid or abscess. Small fat containing umbilical hernia. The osseous structures are within normal limits.Grade 1 anterolisthesis of L4 on L5 IMPRESSION: No acute intra-abdominal or pelvic findings. A limited non-contrast examination was performed as detailed.
[2021-01-05 20:31] LABS: Urine Blood Negative (Negative); Urine Glucose Negative (Negative); Urine Protein Negative (Negative); Urine Specific Gravity >=1.030 (1.005-1.030)
--- NOTE | 2021-01-05 21:07 | ER ---
Nurse's Notes [facility] Name: Ina Carrillo Age: 80 yrs Sex: Female : 1940 Arrival Date: 01/05/2021 Time: 17:10 Bed 11 Private MD: Diagnosis: Diverticulosis of intestine, part unspecified, without perforation or abscess without bleeding Presentation: 01/05 17:56 Chief complaint: Patient states: Lower abdominal and pelvic pain x 2 months. Pt saw kg urologist 12/30 and they did an internal x-ray was just told she has an over active bladder. Pt saw her PCP Dr. Davis she did a rectal exam, blood work and ordered a CT scan but they couldn't do it tell Monday and I hurt to bad. Coronavirus screen: Client denies travel out of the [place] in the last 14 days. Client indicates they have traveled out of the [place] in the last 14 days. At this time, unable to obtain information related to travel outside the [place] At this time, the client does not indicate any symptoms associated with coronavirus-19. Ebola Screen: Patient negative for fever greater than or equal to 101.5 degrees Fahrenheit, and additional compatible Ebola Virus Disease symptoms Patient denies exposure to infectious person. Patient denies travel to an Ebola-affected area in the 21 days before illness onset. Initial Sepsis Screen: Does the patient meet any 2 criteria? No. Patient's initial sepsis screen is negative. Does the patient have a suspected source of infection? No. Patient's initial sepsis screen is negative. Risk Assessment: Do you want to hurt yourself or someone else? Patient reports no desire to harm self or others. Onset of symptoms was November 2020. 17:56 Method Of Arrival: Ambulatory kg 17:56 Acuity: SARAH 3 kg Triage Assessment: 18:02 General: Appears in no apparent distress. Behavior is calm, cooperative, appropriate kg for age, quiet. Pain: Complains of pain in left lower quadrant Pain currently is 5 out of 10 on a pain scale. at worst was 7 out of 10 on a pain scale. Quality of pain is described as aching, sharp, stabbing, Pain began. Historical: - Allergies: 18:02 Sulfa (Sulfonamide Antibiotics); kg - PMHx: 18:02 Hypothyroidism; Hypertension; COPD; kg - PSHx: 18:02 Total abdominal hysterectomy; Ligation of fallopian tube; Appendectomy; Cholecystectomy;kg - Immunization history:: Adult Immunizations up to date, Client reports receiving the 2nd dose of the Covid vaccine, Date received: September 2020 Client reports receiving the 1st dose of the Covid vaccine, September 2020. - Social history:: Smoking status: Patient denies any tobacco usage or history of. Screenin:05 Abuse screen: Denies threats or abuse. Denies injuries from another. Nutritional kg screening: No deficits noted. Tuberculosis screening: No symptoms or risk factors identified. Fall Risk None identified. Assessment: 21:30 General: Appears in no apparent distress. Behavior is calm, cooperative. Pain: bb Complains of pain in abdomen. Neuro: Level of Consciousness is awake, alert, obeys commands, Oriented to person, place, time, situation. Cardiovascular: Capillary refill < 3 seconds Patient's skin is warm and dry. Respiratory: Respiratory effort is even, unlabored, Respiratory pattern is regular. GI: Reports lower abdominal pain. Derm: Skin is pink, warm \T\ dry. Musculoskeletal: Circulation, motion, and sensation intact. 21:31 Reassessment: pt verbalized understanding of and agrees to plan of care discharge bb instructions given pt ambulated with steady gait to exit. Vital Signs: 17:56 Pulse 65; Resp 18; Temp 97.9(TE); Pulse Ox 100% on R/A; Weight 79.38 kg; Height 5 ft. 4 kg in. (162.56 cm); Pain 5/10; 20:40 BP 151 / 60; Pulse 61; Temp 97.1; Pulse Ox 95% on R/A; dh4 21:23 BP 146 / 67; Pulse 62; Pulse Ox 96% on R/A; dh4 17:56 Body Mass Index 30.04 (79.38 kg, 162.56 cm) kg ED Course: 17:10 Patient arrived in ED. am2 18:02 Triage completed. kg 18:02 Arm band placed on right wrist. kg 18:16 Inserted saline lock: 20 gauge in right antecubital area, using aseptic technique. mt Blood collected. 18:47 CT Abd/Pelvis - Without Contrast In Process Unspecified. EDMS 20:00 Rocael Mesa MD is Attending Physician. 7 20:05 Urine collected: clean catch specimen, clear, vaibhav colored. jp3 21:12 Ravi Lara MD is Referral Physician. [facility] 21:30 Patient has correct armband on for positive identification. bb 21:30 No provider procedures requiring assistance completed. IV discontinued, intact, bb bleeding controlled, No redness/swelling at site. Pressure dressing applied. Administered Medications: 21:09 Drug: Tylenol 1000 mg Route: PO; bb 21:31 Follow up: Response: No adverse reaction bb Outcome: 21:07 Discharge ordered by . 7 21:32 Discharged to home ambulatory. bb 21:32 Condition: stable 21:32 Discharge instructions given to patient, Instructed on discharge instructions, follow up and referral plans. medication usage, Demonstrated understanding of instructions, follow-up care, medications, Prescriptions given X 2. 21:32 Patient left the ED. bb Signatures: Dispatcher [employer] EDMS Denisa Barlow RN RN bb Batool Haynes 2 Madie Fleming mt, Jacob 3 Krishan Ken 4 Rocael Mesa MD MD 7 Jennifer Wilson RN RN kg
--- NOTE | 2021-01-05 21:07 | EDPHYS ---
Physician Documentation [facility] Name: Ina Carrillo Age: 80 yrs Sex: Female : 1940 Arrival Date: 01/05/2021 Time: 17:10 Bed 11 Private MD: ED Physician Rocael Mesa HPI: 01/05 20:10 This 80 yrs old Female presents to ER via Ambulatory with complaints of mh7 Pelvic Pain, lower abd pain. 20:10 The patient presents with abdominal pain in the left lower quadrant. Onset: The mh7 symptoms/episode began/occurred 2 month(s) ago. The symptoms do not radiate. 20:10 Associated signs and symptoms: Pertinent negatives: nausea, vomiting, and diarrhea, mh7 anorexia, blood in stools, chest pain, constipation, diarrhea, dysuria, fever, headache, hematuria, nausea, palpitations, shortness of breath, vaginal discharge, vomiting, vomiting blood. 20:10 The symptoms are described as intermittent, vague, waxing/waning. Modifying factors: mh7 The symptoms are alleviated by nothing, the symptoms are aggravated by touching the area, walking. Severity of pain: At its worst the pain was moderate this morning, in the emergency department the pain has improved moderately. Historical: - Allergies: 18:02 Sulfa (Sulfonamide Antibiotics); kg - PMHx: 18:02 Hypothyroidism; Hypertension; COPD; kg - PSHx: 18:02 Total abdominal hysterectomy; Ligation of fallopian tube; Appendectomy; Cholecystectomy;kg - Immunization history:: Adult Immunizations up to date, Client reports receiving the 2nd dose of the Covid vaccine, Date received: September 2020 Client reports receiving the 1st dose of the Covid vaccine, September 2020. - Social history:: Smoking status: Patient denies any tobacco usage or history of. ROS: 20:10 Constitutional: Negative for fever, chills, and weight loss, Eyes: Negative for injury, mh7 pain, redness, and discharge, ENT: Negative for injury, pain, and discharge, Neck: Negative for injury, pain, and swelling, Cardiovascular: Negative for chest pain, palpitations, and edema, Respiratory: Negative for shortness of breath, cough, wheezing, and pleuritic chest pain, Back: Negative for injury and pain, : Negative for injury, bleeding, discharge, and swelling, MS/Extremity: Negative for injury and deformity, Skin: Negative for injury, rash, and discoloration, Neuro: Negative for headache, weakness, numbness, tingling, and seizure, Psych: Negative for depression, anxiety, suicide ideation, homicidal ideation, and hallucinations, Allergy/Immunology: Negative for hives, rash, and allergies, Endocrine: Negative for neck swelling, polydipsia, polyuria, polyphagia, and marked weight changes, Hematologic/Lymphatic: Negative for swollen nodes, abnormal bleeding, and unusual bruising. Exam: 20:10 Constitutional: This is a well developed, well nourished patient who is awake, alert, mh7 and in no acute distress. Head/Face: Normocephalic, atraumatic. Eyes: Pupils equal round and reactive to light, extra-ocular motions intact. Lids and lashes normal. Conjunctiva and sclera are non-icteric and not injected. Cornea within normal limits. Periorbital areas with no swelling, redness, or edema. Neck: Trachea midline, no thyromegaly or masses palpated, and no cervical lymphadenopathy. Supple, full range of motion without nuchal rigidity, or vertebral point tenderness. No Meningismus. Chest/axilla: Normal chest wall appearance and motion. Nontender with no deformity. No lesions are appreciated. Cardiovascular: Regular rate and rhythm with a normal S1 and S2. No gallops, murmurs, or rubs. Normal PMI, no JVD. No pulse deficits. Respiratory: Lungs have equal breath sounds bilaterally, clear to auscultation and percussion. No rales, rhonchi or wheezes noted. No increased work of breathing, no retractions or nasal flaring. 20:10 Back: No spinal tenderness. No costovertebral tenderness. Full range of motion. mh7 Skin: Warm, dry with normal turgor. Normal color with no rashes, no lesions, and no evidence of cellulitis. MS/ Extremity: Pulses equal, no cyanosis. Neurovascular intact. Full, normal range of motion. Neuro: Awake and alert, GCS 15, oriented to person, place, time, and situation. Cranial nerves II-XII grossly intact. Motor strength 5/5 in all extremities. Sensory grossly intact. Cerebellar exam normal. Normal gait. Psych: Awake, alert, with orientation to person, place and time. Behavior, mood, and affect are within normal limits. 20:10 Abdomen/GI: Inspection: abdomen appears normal, Bowel sounds: normal, in all quadrants, Palpation: mild abdominal tenderness, in the left lower quadrant, mass, is not appreciated, rebound tenderness, is not appreciated, voluntary guarding, is not appreciated, involuntary guarding, is not appreciated, no appreciated organomegaly, Rectal exam: the exam is deferred, because of patient request, Indicators: McBurney's point is not tender, Aly's sign is negative, Rovsing's sign is negative, Obturator sign is negative, Psoas sign is negative, Liver: no appreciated palpable abnormalities, Hernia: not appreciated. Vital Signs: 17:56 Pulse 65; Resp 18; Temp 97.9(TE); Pulse Ox 100% on R/A; Weight 79.38 kg; Height 5 ft. 4 kg in. (162.56 cm); Pain 5/10; 20:40 BP 151 / 60; Pulse 61; Temp 97.1; Pulse Ox 95% on R/A; dh4 21:23 BP 146 / 67; Pulse 62; Pulse Ox 96% on R/A; dh4 17:56 Body Mass Index 30.04 (79.38 kg, 162.56 cm) kg MDM: 21:04 Differential diagnosis: bowel obstruction, diverticulitis, non-specific abd pain, mh7 Pyelonephritis, Ureterolithiasis, urinary tract infection. Data reviewed: vital signs, nurses notes, lab test result(s), CBC, electrolytes, urinalysis, radiologic studies, CT scan. Data interpreted: Pulse oximetry: on room air is 95 %. Interpretation: normal. Counseling: I had a detailed discussion with the patient and/or guardian regarding: the historical points, exam findings, and any diagnostic results supporting the discharge/admit diagnosis, lab results, radiology results, the need for outpatient follow up, a cotton baler, to return to the emergency department if symptoms worsen or persist or if there are any questions or concerns that arise at home. Response to treatment: the patient's symptoms have markedly improved after treatment. 21:07 Patient medically screened. [facility] 01/05 18:12 Order name: Basic Metabolic Panel; Complete Time: 20: bd 01/05 18:12 Order name: CBC with Diff; Complete Time: 20: bd 01/05 18:12 Order name: Hepatic Function; Complete Time: 20:06 bd 01/05 18:12 Order name: Lipase; Complete Time: 20: bd 01/05 18:25 Order name: CT Abd/Pelvis - Without Contrast; Complete Time: 20:06 kg 01/05 20:30 Order name: Urine Dipstick-Ancillary; Complete Time: 20:31 EDND 01/05 18:12 Order name: IV Saline Lock; Complete Time: 18:16 bd 01/05 18:12 Order name: Labs collected and sent; Complete Time: 18:16 bd 01/05 20:07 Order name: Urine Dipstick-Ancillary (obtain specimen); Complete Time: 20:44 [facility] Administered Medications: 21:09 Drug: Tylenol 1000 mg Route: PO; 21:31 Follow up: Response: No adverse reaction bb Disposition Summary: 01/05/21 21:07 Discharge Ordered Location: Home [facility] Problem: an ongoing problem [facility] Symptoms: have improved [facility] Condition: Stable [facility] Diagnosis - Diverticulosis of intestine, part unspecified, without perforation or abscess [facility] without bleeding Followup: [facility] - With: Private Physician - When: 1 - 2 days - Reason: Worsening of condition, Recheck today's complaints, Continuance of care, Re-evaluation by your physician Followup: [facility] - With: Ravi Lara MD - When: 1 - 2 days - Reason: Worsening of condition, Recheck today's complaints Discharge Instructions: - Discharge Summary Sheet [facility] - High-Fiber Diet [facility] - Diverticulosis [facility] - Abdominal Pain, Adult, [id number] [facility] Forms: - Medication Reconciliation Form [facility] - Thank You Letter [facility] - Antibiotic Education [facility] - Prescription Opioid Use [facility] Prescriptions: - Colace 100 mg Oral Tablet - take 1 tablet by ORAL route every 12 hours; 14 tablet; Refills: 0, Product [facility] Selection Permitted - dicyclomine 10 mg Oral Capsule - take 1 capsule by ORAL route 4 times per day As needed; 20 capsule; Refills: 0, [facility] Product Selection Permitted Signatures: Dispatcher [employer] EDND Madison Mcbride Brenda, RN RN Rocael Ward MD MD [facility] Jennifer Wilson RN RN kg Corrections: (The following items were deleted from the chart) 21:08 21:07 Diverticulosis of large intestine without perforation or abscess without bleeding mh7 mh7
[2021-01-05] MEDS ORDERED: ACETAMINOPHEN 500 MG TAB ONE (21:31)
[2021-01-05 21:41] VITALS: TEMP 97.1
[2021-01-05 21:42] VITALS: BP 146/67; O2SAT 96
== END 2021-01-05 21:32 | disposition home or self-care (01) ==
LOC: ER 17:09
DX: K57.30 Diverticulosis of large intestine without perforation or abscess without bleeding (principal); I10 Essential (primary) hypertension; J44.9 Chronic obstructive pulmonary disease, unspecified; Z88.2 Allergy status to sulfonamides
CPT/HCPCS: 36415; 74176; 80048; 80076; 81003; 83690; 85025; 99284

== ENCOUNTER 2021-05-10 11:13 | Observation (INO) | payer OTHER ==
--- OUTSIDE RECORDS SUMMARY | 2021-05-10 11:18 | XMS REPORT | Continuity of Care Document ---
:1940 Author Organization [facility] t Address [address] [place] [address] Care Team Providers Name Role Phone Sonja ANDERSON, F. Primary Care Physician BONILLA Attending Clinician Unavailable SUSHIL Attending Clinician Unavailable SONJA Attending Clinician Unavailable Provider Attending Clinician Denzel DE LEON Attending Clinician Unavailable STEPH Attending Clinician Unavailable SIFJeanmarie Admitting Clinician Unavailable KELVIN LEE Admitting Clinician Unavailable Payers Payer Name Policy Type Policy Effective Date Expiration Date Sour ce Number MEDICAREMEDICARE PART [id number] 2004 [facility] A AND 00:00:00 [facility] [id number] 2003[place] [id number] 2018 [facility] [id number] 00:00:00 Hos pital 2018-Commercia l Problems Condition Condition Condition Status Onset Resolution Last Treating Co mments Source Name Details Category Date Date Treatment Clinician Date S/P Diagnosis Active 2019-12-12 [facility] F[facility]-ORBIT 12-07 11:10:00 l AL FLOOR S/P 00:00: Ohng FX FALL-ORBIT 00 AL FLOOR FX Active 9 [facility] GERD GERD Disease Active 2016-0 [facility] (gastroeso (gastroeso 09-17 phageal phageal 00:00: Hospita reflux reflux 00 l disease) disease) Benign Benign Disease Active [facility] essential essential 09-17 HTN HTN 00:00: Hospita 00 l Overactive Overactive Disease Active 20160 M [facility]i bladder bladder 09-17 00:00: Hospita 00 l Chest pain Chest pain Disease Active M ethodi 09-17 00:00: Hospita 00 l [...] a 00 l Multiple-t Multiple-t Disease Active M ethodi ype ype 09-17 hyperlipid hyperlipid [...] Propensi Active [facility] (Sulfona ty to 09-17 mide adverse 00:00: Hospita Antibiot reaction 00 l ics) s to drug Family History Family Member Diagnosis Comments Start Date Stop Date Source Natural child [facility]iz[facility] Natural child Thyroid disease [facility] Natural father Cancer [facility] Natural mother Dementia [facility] Social History Social Habit Start Date Stop Date Quantity Comments Source History SDOH Social [facility] Connections Phone Hospita l History SDOH Social [facility]ctions [facility] History SDOH Social [facility] Connections [facility] History SDOH Social [facility] Hospital Membership History SDOH Social [facility] Hospital Meetings Exposure to Not sure [facility] SARS-CoV-2 (event) Hospit al Alcohol intake 2021-01-04 2021-01-04 Current [facility] 00:00:00 00:00:00 non-drinker of Hospital alcohol (finding) Tobacco use and 2021-01-04 2021-01-04 Never used [facility] exposure 00:00:00 00:00:00 Hospital History SDOH Social 2020-07-14 2020-07-14 4 [facility] Connections Living 00:00:00 00:00:00 Hospit al History SDOH 2020-07-14 2020-07-14 2 [facility] Transport Med 00:00:00 00:00:00 Hospital History SDOH 2020-07-14 2020-07-14 2 [facility] Transport Non-Med 00:00:00 00:00:00 Hospita l Tobacco Comment 2017-09-20 2017-09-[address] 00:00[facility]00 00:00:00 continued Hospital cessation. History of tobacco 1984-05-15 Smoker [facility] use 00:00:00 Hospital Sex Assigned At [birth year] [facility] 00:00:00 00:00:00 Hospital Smoking Status Start Date Stop Date Source Former smoker 2021-01-04 00:00:00 2021-01-04 00:00:[facility] Medications Ordered Filled Start Stop Current Ordering Indication Dosage Frequency Signature Comments Components Source Medication Medication Date Date Medication? Clinician (SIG) Name Name cefTRIAXone 2020- No [id number] 1g [facility] (ROCEPHIN) 01-04 st injection 1 [...] obact no.7 21:05: 00:00 Hospit a (PROBIOTIC- 01 :00 l 10 ORAL) famotidine Yes 40mg QD Take 40 mg M [facility] (PEPCID) 40 01-[address] MG tablet 20:59: daily. Hospit a 30 l omeprazole Yes 40mg QD Take 40 mg M [facility] (PriLOSEC) 01-[address] 40 MG 20:59: daily. Hospita capsule 30 l metroNIDAZO Yes 500mg Q.[id number] Take 500 [facility] LE (FLAGYL) 01-04 [id number] mg by s t 500 MG 20:59: 3D mouth 3 Hospita tablet 30 (three) l times a day. tiZANidine Yes [id number] 2mg Q6H Take 1 [facility] (ZANAFLEX) 01-04 [id number] tablet (2 st 2 MG tablet 00:00: mg total) H ospita 00 by mouth l every 6 (six) hours as needed for muscle spasms (or shoulder pain). HYDROcodone 2020- No [id number] 1{tbl} Q6H Take 1 [facility] -acetaminop 01-[address] hen ([place]) 00:00: 04:59 mouth Hosp karen 5-325 mg 00 :00 every 6 l per tablet (six) hours as needed for moderate pain or severe pain for up to 30 days .acute pain. Max Daily Amount: 4 tablets metroNIDAZO 2020- No [id number] 500mg Q.73684622 Take 1 [facility] LE (FlagyL) 01-[id number] 500 MG 00:00: 04:59 3D (500 mg Hospita tablet 00 :00 total) by l mouth 3 (three) times a day for 10 days. ciprofloxac 2020- No [id number] 500mg Q.5D Take 1 [facility] in (Cipro) 01-[address] 500 MG 00:00: 04:59 (500 mg Hospita tablet 00 :00 total) by l mouth 2 (two) times a day for 10 days. dicyclomine Yes Method i (BENTYL) 20 8-18 st mg tablet 00:00: Hospita 00 l tiZANidine 2020- No [id number] TAKE ONE [facility] (ZANAFLEX) 12-25 [id number] (1) st 2 MG tablet 00:00: 00:00 TABLET(S) Hospita 00 :00 BY MOUTH l TWICE A DAY NEEDED SHOULDER PAIN. potassium 2020- No [id number] TAKE ONE [facility] chloride 11-11- (1) st (KLOR-CON) 00:00: 00:00 TABLET(S) H ospita 10 MEQ CR 00 :00 BY MOUTH l tablet ONCE A DAY. Myrbetriq 2020- No [id number] TAKE ONE [facility] 50 mg 11-11- (1) st tablet 00:00: 00:00 TABLET(S) Hospi ta extended 00 :00 BY MOUTH l release 24 ONCE A hr DAY. metoprolol Yes [id number] TAKE ONE [facility] tartrate 10-21 (1) st (LOPRESSOR) 00:00: TABLET(S) H ospita 25 mg 00 BY MOUTH l tablet TWICE A DAY. furosemide Yes [id number] TAKE ONE [facility] (LASIX) 40 5-13 (1) st mg tablet 00:00: TABLET(S) Hos brenda 00 BY MOUTH l ONCE A DAY. pantoprazol Yes [id number] 40mg QD Take 1 [facility] e 3-02 tablet (40 st (PROTONIX) 00:00: mg total) Ho spita 40 MG EC 00 by mouth l tablet daily for 90 days. rosuvastati Yes [id number] 10mg QD Take 1 [facility] n (CRESTOR) 07-14 tablet (10 st 10 mg 00:00: mg total) Hospita tablet 00 by mouth l daily for 90 days. sertraline 2021- No [id number] 50mg QD Take 1 [facility] (Zoloft) 50 07-1403 tablet (50 s t MG tablet 00:00: 05:59 mg total) Ho spita 00 :00 by mouth l daily. venlafaxine 2020- No [id number] 2 po qd [facility] XR (Effexor 07-14 for 7 days s t XR) 150 MG 00:00: 00:00 then 1 po H ospita 24 hr 00 :00 qd for 7 l capsule days then d/c ondansetron 2020- No [id number] 4mg Q8H Take 1 [facility] (Zofran) 4 07-14 tablet (4 st MG tablet 00:00: 00:00 mg total) Ho spita 00 :00 by mouth l every 8 (eight) hours as needed for nausea or vomiting. levothyroxi 2020- No [id number] 50ug QD Take 1 [facility] ne 07-14 tablet (50 st (SYNTHROID) 00:00: 00:00 mcg total) Hospita 50 mcg 00 :00 by mouth l tablet every morning. conjugated 2020- No [id number] Apply ext [facility] estrogens 07-[address] (Premarin) 00:00: 00:00 Hospit a 0.625 00 :00 l mg/gram vaginal cream potassium 2020- No [id number] 10meq QD Take 1 M ethodi chloride 07-14 tablet (10 st (KLOR-CON) 00:00: 00:00 mEq total) Hospita 10 MEQ CR 00 :00 by mouth l tablet daily. metoprolol 2020- No [id number] TAKE ONE [facility] tartrate 3-02 06-09 (1) st (LOPRESSOR) 00:00: 00:00 TABLET(S) Hospita 25 mg 00 :00 BY MOUTH l tablet TWICE A DAY. acetaminoph 2020- No [id number] 1{tbl} Q24H Take 1 [facility] en-codeine 3-06 18-[address] (TYLENOL 00:00: 04:59 mouth Hospita WITH 00 :00 daily as l CODEINE #3) needed for 300-30 mg severe per tablet pain for up to 30 days .chronic pain. tiZANidine 2019-05- No [id number] TAKE ONE [facility] (ZANAFLEX) 08-13 [id number] (1) st 2 MG tablet 00:00: 00:00 TABLET(S) Hospita 00 :00 BY MOUTH l TWICE A DAY NEEDED SHOULDER PAIN. sucralfate 2019-05 Yes [id number] TAKE ONE [facility] (CARAFATE) 2- (1) st 1 gram 00:00: TABLET(S) Hospit a tablet 00 BY MOUTH l FOUR TIMES A DAY. potassium 2019-05- No [id number] 10meq QD Take 1 M ethodi chloride 2-16 - tablet (10 st (KLOR-CON) 00:00: 00:00 mEq total) Hospita 10 MEQ CR 00 :00 by mouth l tablet daily. Myrbetriq 2019-05- No [id number] 50mg QD Take 1 [facility] 50 mg 06-21 06-30 tablet (50 st tablet 00:00: 00:00 mg total) Hospi ta extended 00 :00 by mouth l release 24 daily. hr metoprolol 2019-05- No [id number] TAKE ONE [facility] tartrate 2- 03-02 (1) st (LOPRESSOR) 00:00: 00:00 TABLET(S) Hospita 25 mg 00 :00 BY MOUTH l tablet TWICE A DAY. furosemide 2019-05 No [id number] TAKE ONE [facility] (LASIX) 40 1-15 (1) st mg tablet 00:00: TABLET(S) Hos brenda 00 BY MOUTH l ONCE A DAY. venlafaxine 2019-05- No [id number] TAKE ONE [facility] 225 MG 1- 03-02 (1) st tablet 00:00: 00:00 TABLET(S) Hospi ta extended 00 :00 BY MOUTH l release ONCE A 24hr 24 hr DAY. tablet potassium [id number] TAKE ONE [facility] chloride 9-14 12-16 (1) st (KLOR-CON) 00:00: 00:00 TABLET(S) H ospita 10 MEQ CR 00 :00 BY MOUTH l tablet ONCE A DAY. metoprolol No [id number] TAKE ONE [facility] tartrate 01-15 1202 (1) st (LOPRESSOR) 00:00: 00:00 TABLET(S) Hospita 25 mg 00 :00 BY MOUTH l tablet TWICE A DAY. venlafaxine No [id number] TAKE ONE [facility] 225 MG 01-06 (1) st tablet 00:00: 00:00 TABLET(S) Hospi ta extended 00 :00 BY MOUTH l release ONCE A 24hr 24 hr DAY. tablet metoprolol [id number] TAKE ONE [facility] tartrate 01-06 (1) st (LOPRESSOR) 00:00: 13:00 TABLET(S) Hospita 25 mg 00 :47 BY MOUTH l tablet TWICE A DAY. levothyroxi No [id number] TAKE ONE [facility] ne 12-07 (1) st (SYNTHROID) 00:00: 00:00 TABLET(S) Hospita 50 mcg 00 :00 BY MOUTH l tablet EVERY MORNING. rosuvastati No [id number] TAKE ONE [facility] n (CRESTOR) 12-07 (1) st 10 mg 00:00: 00:00 TABLET(S) Hospit a tablet 00 :00 BY MOUTH l ONCE A DAY. pantoprazol No [id number] TAKE ONE Method[facility] e 10-20 (1) st (PROTONIX) 00:00: 00:00 TABLET(S) H ospita 40 MG EC 00 :00 BY MOUTH l tablet ONCE A DAY. conjugated 2020- No [id number] .5g QD Insert 0.5 [facility] estrogens 09-04 03-[address] (PREMARIN) 00:00: 00:00 vagina Hosp karen 0.625 00 :00 nightly as l mg/gram needed vaginal (irritatio cream n). Premarin 0.625 mg/gram vaginal cream tiZANidine 2019- No [id number] TAKE ONE [facility] (ZANAFLEX) 09-04 [id number] (1) st 2 MG tablet 00:00: 00:00 TABLET(S) Hospita 00 :00 BY MOUTH l TWICE A DAY NEEDED SHOULDER PAIN. sucralfate 2019- No [id number] TAKE ONE [facility] (CARAFATE) 09-04 (1) st 1 gram 00:00: 00:00 TABLET(S) Hospi ta tablet 00 :00 BY MOUTH l FOUR TIMES A DAY. Myrbetriq 2019- No [id number] 50mg QD Take 1 [facility] 50 mg 09-04 tablet (50 st tablet 00:00: 00:00 mg total) Hospi ta extended 00 :00 by mouth l release 24 daily. hr furosemide 2019- No [id number] 40mg QD Take 1 M [facility]i (LASIX) 40 09-04 11-15 tablet (40 st mg tablet 00:00: 00:00 mg total) Ho spita 00 :00 by mouth l daily. potassium 2019- No [id number] 10meq QD Take 1 M ethodi chloride 09-04 09-14 tablet (10 st (KLOR-CON) 00:00: 12:43 mEq total) Hospita 10 MEQ CR 00 :00 by mouth l tablet daily for 90 days. venlafaxine 2019- No [id number] 225mg QD Take 1 [facility] 225 MG 09-04-[address] tablet 00:00: 00:00 (225 mg Hospita extended 00 :00 total) by l release mouth 24hr 24 hr daily. tablet metoprolol 2019- No [id number] TAKE ONE [facility] tartrate 09-04-25 (1) st (LOPRESSOR) 00:00: 00:00 TABLET(S) Hospita 25 mg 00 :00 BY MOUTH l tablet TWICE A DAY. estradioL Yes [facility] (ESTRACE) 08-21 st 0.01 % (0.1 00:00: Hospit a mg/gram) 00 l vaginal cream estradiol 2020- No [id number] 1g Q2D Insert 1 g [facility] (ESTRACE) 06-[address] 0.01 % (0.1 00:00: 05:59 vagina Hos brenda mg/gram) 00 :00 every l vaginal other day. cream Acetaminoph No Notes: Do M emoria en 12-07 not exceed l 16:37: 4 gm/day. [place] (Same as: Tylenol) Acetaminoph No Notes: Do M emoria en 12-07 not exceed l 16:37: 4 gm/day. [place] 00 (Same as: Tylenol) Acetaminoph No Notes: Do M emoria en 12-07 not exceed l 16:37: 4 gm/day. [place] (Same as: Tylenol) Bacitracin Yes 1 appl, Chava natividad 0.5 UNT/MG 7- TOP, TID, l Topical 14:03: Apply a [place] Ointment 00 thin layer to affected area, X 7 day, # 30 gm, 0 Refill(s) [place] Nasal Yes 1 appl, Mem oria Moisturizer 7-26 TOP, BID, l topical gel 14:03: PRN as Herm shanice 00 needed for dry skin, # 5 gm, 0 Refill(s) Bacitracin Yes 1 appl, Chava natividad 0.5 UNT/MG 7-26 TOP, TID, l Topical 14:03: Apply a [place] Ointment 00 thin layer to affected area, X 7 day, # 30 gm, 0 Refill(s) [place] Nasal Yes 1 appl, Mem oria Moisturizer 7-26 TOP, BID, l topical gel 14:03: PRN as Herm shanice 00 needed for dry skin, # 5 gm, 0 Refill(s) Bacitracin Yes 1 appl, Chava natividad 0.5 UNT/MG 7-26 TOP, TID, l Topical 14:03: Apply a [place] Ointment 00 thin layer to affected area, X 7 day, # 30 gm, 0 Refill(s) [place] Nasal Yes 1 appl, Mem oria Moisturizer 7-26 TOP, BID, l topical gel 14:03: PRN as Herm shanice 00 needed for dry skin, # 5 gm, 0 Refill(s) Morphine 2019-0 No 2 mg, Memoria 12-07 Route: l 10:51: IVP, ONCE, Dosing Weight 77.273, kg, Priority: STAT, Start date: 12/07/18 5:51:00 CDT, Stop date: 12/07/18 5:51:00 CDT Morphine 2019-0 No 2 mg, Memoria 12-07 Route: l 10:51: IVP, ONCE, Dosing Weight 77.273, kg, Priority: STAT, Start date: 12/07/18 5:51:00 CDT, Stop date: 12/07/18 5:51:00 CDT Morphine 2018-0 No 2 mg, Memoria 12-07 Route: l 10:51: IVP, ONCE, Dosing Weight 77.273, kg, Priority: STAT, Start date: 12/07/18 5:51:00 CDT, Stop date: 12/07/18 5:51:00 CDT bacitracin 2020- No 1 appl, Met hodi 500 12-07 TOP, TID, st unit/gram 00:00: 00:00 Apply a Hosp karen ointment 00 :00 thin layer l to affected area, X 7 day, # 30 gm, 0 Refill(s) sodium No 1 appl, [facility] chloride 12-07 TOP, BID, st ([place] 00:00: 00:00 PRN as Hospita Nasal) 0.65 00 :00 needed for l % nasal dry skin, spray # 5 gm, 0 Refill(s) Immunizations Ordered Immunization Filled Immunization Date Status Commen ts Source Name Name Influenza, 2019-04-28 Completed [facility] Unspecified 00:00:00 Hospital FLUZONE HIGH-DOSE PF 2018-01-18 Completed [facility] 00:00:00 Hospital Pneumococcal 2018-01-18 Completed [facility] Polysaccharide 00:00:00 Hospital Pneumococcal 2017-04-17 Completed [facility] Conjugate 13-[facility]ent 00:00:00 Hospi nena Influenza, 2017-02-09 Completed [facility] Unspecified 00:00:00 Hospital Pneumococcal 2016-03-14 Completed [facility] Conjugate 13-[facility]ent 00:00:00 [facility] nena FLUZONE HIGH-DOSE PF 2016-02-16 Completed [facility] 00:00:00 Hospital Td, Unspecified 2013-11-17 Completed [facility] 00:00:00 Hospital Zoster 2013-02-12 Completed [facility] 00:00:00 Hospital Vital Signs Vital Name Observation Time Observation Value Comments Source Systolic blood 2021-01-04 20:50:00 130 mm[Hg] [facility] pressure Diastolic blood 2021-01-04 20:50:00 72 mm[Hg] [facility] pressure Heart rate 2021-01-04 20:50:00 72 /min [facility] Respiratory rate 2021-01-04 20:50:00 18 /min [facility] Body height 2021-01-04 20:50:00 160 cm [facility] Body weight 2021-01-04 20:50:00 79.379 kg [facility] BMI 2021-01-04 20:50:00 31.00 kg/m2 [facility] Oxygen saturation in 2021-01-04 20:50:00 96 /min [facility] Arterial blood by Pulse oximetry Systolic (mm Hg) 2018-12-07 17:38:00 Chava rial [place] Diastolic (mm Hg) 2018-12-07 17:38:00 Mem orial [place] Temperature Oral (F) 2018-12-07 17:38:00 98.5 F [facility] [place] Respitory Rate 2018-12-07 17:38:00 Memori al [place] Systolic (mm Hg) 2018-12-07 10:00:00 Chava rial [place] Diastolic (mm Hg) 2018-12-07 10:00:00 Mem orial [place] Respitory Rate 2018-12-07 10:00:00 Memori al [place] Respitory Rate 2018-12-07 08:25:00 Memori al [place] Systolic (mm Hg) 2018-12-07 08:25:00 Chava rial [place] Diastolic (mm Hg) 2018-12-07 08:25:00 Mem orial [place] Temperature Oral (F) 2018-12-07 06:56:00 98.2 F [facility] Heart Rate 2018-12-07 06:56:00 [facility] [place] Weight 2018-12-07 05:38:00 [facility] BMI Calculated 2018-12-07 05:38:00 Memori al [place] Height 2018-12-07 05:38:00 157.48 cm [facility] [place] Temperature Oral (F) 2018-12-07 05:38:00 97.6 F [facility] Heart Rate 2018-12-07 05:38:00 [facility] Procedures Procedure Date / Time Performing Clinician Source Performed CONSULT GYNECOLOGY 2021-01-01 00:00:00 Provider, Historical [facility] CONSULT GYNECOLOGY 2020-12-23 00:00:00 Provider, Historical [facility] EYE EXAM 2020-10-16 00:00:00 Provider, Historical [facility] IP CONSULT TO 2020-10-06 00:00:00 Provider, Historical [facility] GASTROENTEROLOGY T4, FREE 2020-07-14 19:21:00 [facility] CBC WITH PLATELET AND 2020-07-14 19:21:00 [facility] DIFFERENTIAL CREATINE KINASE, TOTAL 2020-07-14 19:21:00 [facility] (CPK) VITAMIN B12 LEVEL 2020-07-14 19:21:00 [facility] B NATRIURETIC PEPTIDE 2020-07-14 19:21:00 [facility] XR CHEST 2 VW 2020-07-14 19:10:10 [facility] HEMOGLOBIN A1C 2020-07-08 15:09:00 [facility] LIPID PANEL 2020-07-08 15:09:00 [facility] COMPREHENSIVE METABOLIC 2020-07-08 15:09:00 [facility] PANEL THYROID STIMULATING HORMONE 2020-07-08 15:09:00 [facility] Plan of Care Planned Activity Planned Date Details Comments Source Future Scheduled Test COVID-19 VACCINE (1) [facility] [code = COVID-19 VACCINE (1)] Future Scheduled Test SHINGLES VACCINES (#2) [facility] [code = SHINGLES VACCINES (#2)] Future Scheduled Test INFLUENZA VACCINE [facility] [code = INFLUENZA VACCINE] Encounters Start End Encounter Admission Attending Care Care Encounter Source Date/Time Date/Time Type Type Clinicians Facility Department ID 2021-03-30 2021-03-30 Outpatient [facility] [id number] [place] 00:00:00 00:00:[address] 2021-03-23 2021-03-23 Outpatient [facility] [id number] [place] 00:00:00 00:00:[address] 2021-03-13 2021-03-13 Emergency BONILLA, [facility] [id number] [place] 00:00:00 00:00:[address] BASIL [address] 2021-03-12 2021-03-12 Outpatient SIFF, RAO [facility] 021 [id number] [place] 00:00:00 00:00:[address] 2021-03-02 2021-03-02 Outpatient SIFF, RAO [facility] [id number] [place] 00:00:00 00:00:[address] 2021-03-02 2021-03-02 Outpatient SIFF, RAO [facility] [id number] [place] 00:00:00 00:00:[address] 2021-02-01 2021-02-01 Outpatient GERTEISEN, [facility] [id number] [place] 00:00:00 00:00:00 NATALY [address] 2021-01-05 2021-01-05 Telephone Gerteisen, 1.2.840.1 [id number] [facility] 00:00:00 00:00:[address] 3.430.2.7 Hospit a .3.683594 l .8 2021-01-04 2021-01-04 Office Gerteisen, 1.2.840.1 [id number] [facility] 15:18:07 16:51:17 Visit Nataly Momin 88566.1.[address] 3.430.2.7 Hospit a .3.464697 l .8 2021-01-04 2021-01-04 Lab GERTEMAGI, 1.2.840.1 [id number] [place] 00:00:00 00:00:00 NATALY 55455.1.[address] .3.073642 .8 2021-01-04 2021-01-04 Travel 1.2.840.1 1.2.201.098 [id number] [facility] 00:00:00 00:00:[address] 3.430.2.7 0.2.7.3.698 Ho spita .3.578952 084.8 l .8 2021-01-01 2021-01-01 Orders Provider, 1.2.840.1 [id number] [facility] 00:00:00 00:00:00 Only Historical 04806.1.1 772 s t 3.430.2.7 Hospit a .3.339590 l .8 2020-12-30 2020-12-30 Telephone Gerteisen, 1.2.840.1 [id number] [facility] 00:00:00 00:00:00 Nataly JeanmarieErick [address] 3.430.2.7 Hospit a .3.410685 l .8 2020-12-25 2020-12-25 Refill Gerteisen, 1.2.840.1 [id number] [facility] 00:00:00 00:00:00 Ntaaly [address]rick [address] 3.430.2.7 Hospit a .3.471011 l .8 2020-12-24 2020-12-24 Orders Provider, 1.2.840.1 [id number] [facility] 00:00:00 00:00:00 Only Historical 02335.1.1 151 s t 3.430.2.7 Hospit a .3.319308 l .8 2020-11-09 2020-11-09 Refill Gerteisen, 1.2.840.1 [id number] [facility] 00:00:00 00:00:00 Nataly [address]rick [address] 3.430.2.7 Hospit a .3.603089 l .8 2020-10-20 2020-10-20 Refill Gerteisen, 1.2.840.1 [id number] [facility] 00:00:00 00:00:00 [address] 3.430.2.7 Hospit a .3.937329 l .8 2020-10-16 2020-10-16 Orders Provider, 1.2.840.1 [id number] [facility] 00:00:00 00:00:00 Only Historical 56644.1.1 441 s t 3.430.2.7 Hospit a .3.527713 l .8 2020-10-07 2020-10-07 Orders Provider, 1.2.840.1 [id number] [facility] 00:00:00 00:00:00 Only Historical 22469.1.1 163 s t 3.430.2.7 Hospit a .3.794995 l .8 2020-09-23 2020-09-23 Refill Sonja, 1.2.840.1 [id number] [facility] 00:00:00 00:00:[address] 3.430.2.7 Hospit a .3.213204 l .8 2020-09-07 2020-09-07 Telephone Gerteisen, 1.2.840.1 [id number] [facility] 00:00:00 00:00:[address] 3.430.2.7 Hospit a .3.557287 l .8 2020-08-31 2020-08-31 Telephone Gerteisen, 1.2.840.1 [id number] 2 [id number] [facility] 00:00:00 00:00:[address] 3.430.2.7 Hospit a .3.123653 l .8 2020-08-31 2020-08-31 Telephone Gerteisen, 1.2.840.1 [id number] [facility] 00:00:00 00:00:[address] 3.430.2.7 Hospit a .3.100255 l .8 2020-07-17 2020-07-17 Telephone Gerteisen, 1.2.840.1 [id number] 2 [id number] [facility] 00:00:00 00:00:[address] 3.430.2.7 Hospit a .3.767178 l .8 2020-07-16 2020-07-16 Telephone Denzel, 1.2.840.1 [id number] [facility] 00:00:00 00:00:[address] 3.430.2.7 Hospit a .3.121211 l .8 2020-07-16 2020-07-16 Telephone Gerteisen, 1.2.840.1 [id number] 2 [id number] [facility] 00:00:00 00:00:[address] 3.430.2.7 Hospit a .3.077183 l .8 2020-07-15 2020-07-15 Telephone Gerteisen, 1.2.840.1 [id number] 2 [id number] [facility] 00:00:00 00:00:[address] 3.430.2.7 Hospit a .3.253006 l .8 2020-07-14 2020-07-14 Lab Gerteisen, 1.2.840.1 [id number] [id number] [facility] 13:21:25 13:26:[address] 3.430.2.7 Hospit a .3.508696 l .8 2020-07-14 2020-07-14 Office Gerteisen, 1.2.840.1 [id number] [facility] 11:38:20 12:55:30 Visit Nataly Akins.1.[address] 3.430.2.7 Hospit a .3.540154 l .8 2020-07-14 2020-07-14 Travel 1.2.840.1 1.2.224.637 [id number] [facility] 00:00:00 00:00:[address] 3.430.2.7 0.2.7.3.698 Ho spita .3.613949 084.8 l .8 2020-07-14 2020-07-14 Refill Gerteisen, 1.2.840.1 [id number] 434 [id number] Methodi 00:00:00 00:00:[address] 3.430.2.7 Hospit a .3.413051 l .8 2020-07-08 2020-07-08 Lab Gerteisen, 1.2.840.1 [id number] 619 [id number] Methodi 08:58:59 09:03:[address] 3.430.2.7 Hospit a .3.493983 l .8 2020-07-07 2020-07-07 Telephone Denzel, 1.2.840.1 [id number] 2099 [id number] Methodi 00:00:00 00:00:[address] 3.430.2.7 Hospit a .3.674070 l .8 2020-06-04 2020-06-04 Telephone Gerteisen, 1.2.840.1 [id number] 2 [id number] Methodi 00:00:00 00:00:[address] 3.430.2.7 Hospit a .3.530399 l .8 2020-06-03 2020-06-03 Travel 1.2.840.1 1.2.947.282 4634 595251 Methodi 00:00:00 00:00:[address] 3.430.2.7 0.2.7.3.698 Ho spita .3.228185 084.8 l .8 2020-05-26 2020-05-26 Refill Gerteisen, 1.2.840.1 [id number] 007 [id number] Methodi 00:00:00 00:00:[address] 3.430.2.7 Hospit a .3.301941 l .8 2020-05-12 2020-05-12 Refill Gerteisen, 1.2.840.1 [id number] 472 [id number] Methodi 00:00:00 00:00:[address] 3.430.2.7 Hospit a .3.599389 l .8 2020-05-05 2020-05-05 Refill Gerteisen, 1.2.840.1 [id number] 072 [id number] Methodi 00:00:00 00:00:[address] 3.430.2.7 Hospit a .3.895973 l .8 2020-04-29 2020-04-29 Orders Gerteisen, 1.2.840.1 [id number] 531 [id number] Methodi 00:00:00 00:00:00 Only Nataly Page50.1.[address] 3.430.2.7 Hospit a .3.859480 l .8 2020-04-20 2020-04-20 Orders Gerteisen, 1.2.840.1 [id number] 970 [id number] Methodi 00:00:00 00:00:00 Only Nataly Page50.1.[address] 3.430.2.7 Hospit a .3.991958 l .8 2020-04-15 2020-04-15 Refill Gerteisen, 1.2.840.1 [id number] [id number] Methodi 00:00:00 00:00:[address] 3.430.2.7 Hospit a .3.003513 l .8 2020-04-13 2020-04-13 Telephone Gerteisen, 1.2.840.1 [id number] 2 [id number] Methodi 00:00:00 00:00:[address] 3.430.2.7 Hospit a .3.350620 l .8 2020-03-28 2020-03-28 Refill Gerteisen, 1.2.840.1 [id number] 586 [id number] Methodi 00:00:00 00:00:[address] 3.430.2.7 Hospit a .3.638694 l .8 2020-03-15 2020-03-15 Refill Gerteisen, 1.2.840.1 [id number] 833 [id number] Methodi 00:00:00 00:00:[address] 3.430.2.7 Hospit a .3.696296 l .8 2020-02-21 2020-02-21 Travel 1.2.840.1 1.2.140.304 7933 [id number] Methodi 00:00:00 00:00:[address] 3.430.2.7 0.2.7.3.698 Ho spita .3.805906 084.8 l .8 2020-01-27 2020-01-27 Refill Gerteisen, 1.2.840.1 [id number] 483 [id number] Methodi 00:00:00 00:00:[address] 3.430.2.7 Hospit a .3.578902 l .8 2020-01-14 2020-01-14 Refill Gerteisen, 1.2.840.1 [id number] 733 [id number] Methodi 00:00:00 00:00:[address] 3.430.2.7 Hospit a .3.022974 l .8 2020-01-07 2020-01-07 Refill Gerteisen, 1.2.840.1 [id number] 172 [id number] Methodi 00:00:00 00:00:[address] 3.430.2.7 Hospit a .3.665385 l .8 2018-12-07 2018-12-07 Emergency [facility] [address] [facility] 05:15:00 17:40:[address] 2018-12-07 2018-12-07 Emergency E STEPH, [facility] [address] [facility] 00:15:00 12:40:00 MAISHA Results Test Description Test Time Test Comments Results Result Comments Source Creatine kinase, total (CPK) 2020-07-16 04:43:00 Test Item Value Reference Range Interpretation Comme nts Creatine kinase (test code = 2157-6) 114 U/L 29-143 RAC (test code = RAC) [facility] vdaky4217[facility]52-28 04:43:00 Test Item Value Reference Range Interpretation Comments Vitamin B12 (test code = 2132-9) >2000 200-1100 H RAC (test code = RAC) Lab Interpretation (test code = Abnormal 29869-5) [facility] jhjj2008-24-39 04:43:00 Test Item Value Reference Range Interpretation Comments T4, free (test code = 3024-7) 1.0 ng/dL 0.8-1.8 RAC (test code = RAC) [facility] with platelet and vlfcnwbxkfmh6495-69-72 04:43:00 Test Item Value Reference Range Interpretation Comments WBC (test code = 6690-2) See_Comment [A utomated message] The system [employer] generated this result transmit blake reference range : 3.8 - 10.8 Thousand /uL. The reference r sandeep was not used to interpret this result as normal/abnormal . RBC (test code = 789-8) See_Comment [Au tomated message] The system [employer] generated this result transmit blake reference range [...] ated message] code = 777-3) The system whi ch generated this result transmit blake reference range [...] RAC) Lab Interpretation (test Abnormal code = 52646-1) [facility] natriuretic qwyqasu0830-84-97 20:42:00 Test Item Value Reference Range Interpretation Comments BNP (test code = 97919-1) 53 pg/mL <100 RAC (test code = RAC) [facility] JJKAUNN5020-52-67 06:39:00Negative (12/07/18 1:39 AM)[facility] ETEKYCW3521-25-62 06:39:00<0.02[facility] RIARPJMCKKOE6722-92-11 06:39:0011.3[facility] WkfwlzaGLRJHAMNQISM9338-28-95 06:39:000.92[facility] PueaahuSQEVSSMURPMA2838-89-31 06:39:35035Aprgwzeu [place] ZNTUAYJEURDG2172-34-21 06:39:0021[facility] WhfponbADIBZAAAUYFV0002-24-84 06:39:00 4.3[facility] AbktgejXAMRMGZMRQQT3525-88-91 06:39:60112Khlyzqhd [place] RZQIOXMDOEYP8145-19-95 06:39:0026[facility] HxqfkgaAMFAIBZGCPBU9949-32-02 06:39:00 9.1[facility] ZkovkfmLISBXRJMKCYG5716-26-27 06:39:0059[facility]annELECTROLYTES 2018-12-07 06:39:22377Vwbtvsxl LahyqauKXJRRANQMI4963-38-25 06:39:0077.4[facility] DzdytoxISPFMXUDXE2104-52-72 06:39:0014.6[facility] AoxovipYBBNZEQPBV1052-01-56 06:39:000.1[facility] FokoaytFPUSBSOPCH8686-23-32 06:39:000.1[facility] [place] PESUWJTEUN2375-66-09 06:39:000.7[facility] MbpmjkaGWVVVYEJPB2236-42-28 06:39:001.3 [facility] IxcpwohLAJZKSHXLS2982-30-80 06:39:006.0[facility]annHEMATOLOGY 2018-12-07 06:39:008.9[facility] IkiwdmzFMCVGLRLGS5583-17-71 06:39:000.7[facility] JmopgvcNDRBFPGPIS6338-96-40 06:39:001.7[facility] DjodxhyWUVGXIMFJH4341-19-05 06:39:000.0[facility] DuwgrqdEXTQXNFBQU3256-18-68 06:39:008.7[facility] UITZIYNYAL0309-40-49 06:39:00 Test Item Value Reference Range Interpretation Comments Max Amplitude Rapid (test code = Max 63 mm 52-71 Amplitude Rapid) [facility]qtnkwvMWYIJXGSRY0910-43-03 06:39:00 Test Item Value Reference Range Interpretation Comments Split Point Rapid (test code = Split 0.5 min Point Rapid) [facility] HospitalHcwnyskIVFCTYBVVZ6392-11-46 06:39:00 Test Item Value Reference Range Interpretation Comments R-time Rapid (test code = R-time 0.6 min 0.4-0.7 Rapid) [facility]ZdpiapmECFUXYCIAT7789-33-94 06:39:00 Test Item Value Reference Range Interpretation Comments K-time Rapid (test code = K-time 1.5 min 0.6-2.3 Rapid) [facility] HospitalHanwoijICXYYPZGXR3802-38-39 06:39:00 Test Item Value Reference Range Interpretation Comments Angle Rapid (test code = Angle 73 degrees 64-80 Rapid) [facility] HospitalAeuzagtPPCMPGCNUY5529-97-88 06:39:00 Test Item Value Reference Range Interpretation Comments ACT (TEG) Rapid (test code = ACT (TEG) 105 s 86-118 Rapid) [facility]bergJbulfwsQLYBMFBWGY1216-14-86 06:39:00 Test Item Value Reference Range Interpretation Comments PT (test code = PT) 12.8 s 12.0-14.7 [facility] HospitalIrrnvipFZTOXTRRVU7147-76-71 06:39:00 Test Item Value Reference Range Interpretation Comments INR (test code = INR) 0.98 1 0.85-1.17 [facility] HospitalFqshvwuSPKXFKAFIA3408-74-19 06:39:37093Beptlxbu HermannHEMATOLOGY 2018-12-07 06:39:0014.3[facility] MyxxpsfHKOKZHSKGS5384-22-04 06:39:0033.4[facility] UfubonqUOTYJGPPMF4671-61-41 06:39:00 Test Item Value Reference Range Interpretation Comments MCH (test code = MCH) 29.8 pg 27.0-31.0 [facility] HospitalGfpfgmtLKKPSKAPJK3282-01-19 06:39:0089.0[facility]annHEMATOLOGY 2018-12-07 06:39:0037.5[facility] VdqtqgbPATDBYGAGF9183-33-06 06:39:004.21[facility] AugwoqvKAWBWWFAAZ2918-61-53 06:39:0012.5[facility] SrutjabBJRMBTVRDW7589-17-12 06:39:0011.5[facility] PwyxedfMEQGDYKXUF2431-45-34 06:39:008.7[facility] GNGEVWFVBL3249-58-55 06:39:00 Test Item Value Reference Range Interpretation Comments PTT (test code = PTT) 29.9 s 22.9-35.8 [facility] HospitalTefhnlwZGKOENXNQI8353-22-30 06:39:001.7[facility] 2018-12-07 06:39:000.0[facility] OaklandXdevscoNUQZVYBJJC6525-43-05 06:39:008.7[facility] OaklandTpuxuocCVNLKHCNWW0494-21-13 06:39:00 Test Item Value Reference Range Interpretation Comments Max Amplitude Rapid (test code = Max 63 mm 52-71 Amplitude Rapid) [facility] HospitalIxoxouzXIEVUBLTVF1892-23-90 06:39:00 Test Item Value Reference Range Interpretation Comments Split Point Rapid (test code = Split 0.5 min Point Rapid) [facility] XUSVQAK9700-28-27 06:39:00<0.02[facility] [place] AELKVHLCQR4817-90-16 06:39:00 Test Item Value Reference Range Interpretation Comments R-time Rapid (test code = R-time 0.6 min 0.4-0.7 Rapid) [facility] HospitalSauencpPDVCXAPDXY0894-09-35 06:39:00 Test Item Value Reference Range Interpretation Comments K-time Rapid (test code = K-time 1.5 min 0.6-2.3 Rapid) [facility] HospitalOjpzvkjZNVRKMGXGS7039-76-67 06:39:00 Test Item Value Reference Range Interpretation Comments Angle Rapid (test code = Angle 73 degrees 64-80 Rapid) [facility] HospitalBkefjvaEAJHKCKYRK0186-63-95 06:39:00 Test Item Value Reference Range Interpretation Comments ACT (TEG) Rapid (test code = ACT (TEG) 105 s 86-118 Rapid) [facility] HospitalQmfsvjjWILMOVRPFN3985-17-28 06:39:00 Test Item Value Reference Range Interpretation Comments PT (test code = PT) 12.8 s 12.0-14.7 [facility] HospitalKiapmltOKLXDVNXJC2556-84-17 06:39:00 Test Item Value Reference Range Interpretation Comments INR (test code = INR) 0.98 1 0.85-1.17 [facility] UayzdcyOJVEVHRZKL1909-11-32 06:39:09002Cvcztqah HermannHEMATOLOGY 2018-12-07 06:39:0014.3[facility] JjgiewsJMEJLKDRNW9794-91-12 06:39:0033.4[facility] NaayesdPZSRHBSDBP7197-91-02 06:39:00 Test Item Value Reference Range Interpretation Comments MCH (test code = MCH) 29.8 pg 27.0-31.0 [facility] QjyaydvTOBEBFBUCHAV1090-07-50 06:39:0011.3[facility] HermannHEMATOLOGY 2018-12-07 06:39:0089.0[facility] LskwbybFYPBOKFTGN1561-01-93 06:39:0037.5[facility] QrdwmdzEAPCIJPRBO6772-46-15 06:39:004.21[facility] OhjpyzjSLLCHYCSUO9403-68-31 06:39:0012.5[facility] RvvuwxfAWVHRIXPJH7129-23-50 06:39:0011.5[facility] Hong QZVYVANDPP2119-37-13 06:39:008.7[facility] PusguzaANBODCFNTM3962-19-67 06:39:00 Test Item Value Reference Range Interpretation Comments PTT (test code = PTT) 29.9 s 22.9-35.8 [facility] ViaydoeYJCNFKSTZPJK5815-69-02 06:39:000.92[facility] HermannELECTROLYTES 2018-12-07 06:39:24797Abogudur XvjnyeiVOAWBANEZKPW2076-63-66 06:39:0021[facility] QnnfnybGUFAQJOWWHDA4987-68-68 06:39:004.3[facility] PfewxcpYKOLQOJILXWN8621-96-40 06:39:96016Ugbedtee CytqwztHQPIEANFWDJC4891-27-28 06:39:0026[facility] UIDBCNKRYTPG3482-61-10 06:39:009.1[facility] ZvurxfxTSLXFDAKJBAX8964-36-97 06:39:0059[facility] SgalwloPTDTFFBEQGVW6813-82-24 06:39:41557Vrumwvvx Hong WOIPMZHZUQ1185-01-49 06:39:0077.4[facility] TpgzknpMPVJAREYCH8566-07-80 06:39:00 14.6[facility] VgelfqqGCVMWGABOG0515-26-64 06:39:000.1[facility]annHEMATOLOGY 2018-12-07 06:39:000.1[facility] AzyjfanXOEXPVHUKJ1076-87-14 06:39:000.7[facility] EugtcnvWLIQQYMGQI4487-15-74 06:39:001.3[facility] NowfhkqPHLRQSRJBC2500-36-05 06:39:006.0[facility] ClblctrPOCCIFQWOY2540-60-07 06:39:008.9[facility] XNUZZASULU9286-99-40 06:39:000.7[facility] EshjmswIKPTOGBUSN7180-07-15 06:39:001.7 [facility] WatzjmqNAZCVTPTDI8068-81-18 06:39:000.0[facility]annHEMATOLOGY 2018-12-07 06:39:008.7[facility] OzlpodmBYBHVMHDAK8217-02-68 06:39:00 Test Item Value Reference Range Interpretation Comments Max Amplitude Rapid (test code = Max 63 mm 52-71 Amplitude Rapid) [facility] HospitalNnhugocERVYJIBGKI4475-99-61 06:39:00 Test Item Value Reference Range Interpretation Comments Split Point Rapid (test code = Split 0.5 min Point Rapid) [facility] HospitalSksflldPQNPQWWBQQ6099-85-58 06:39:00 Test Item Value Reference Range Interpretation Comments R-time Rapid (test code = R-time 0.6 min 0.4-0.7 Rapid) [facility] HospitalWesciujNFQIZOBQWI1313-74-64 06:39:00 Test Item Value Reference Range Interpretation Comments K-time Rapid (test code = K-time 1.5 min 0.6-2.3 Rapid) [facility] HospitalCbcdlqiTQPSXWMNUQ8560-58-27 06:39:00 Test Item Value Reference Range Interpretation Comments Angle Rapid (test code = Angle 73 degrees 64-80 Rapid) [facility] HospitalSjcyrfoGRXYRMTAOA3139-03-98 06:39:00 Test Item Value Reference Range Interpretation Comments ACT (TEG) Rapid (test code = ACT (TEG) 105 s 86-118 Rapid) [facility] HospitalOwjutlvHVOTYJHGNA8122-40-03 06:39:00 Test Item Value Reference Range Interpretation Comments PT (test code = PT) 12.8 s 12.0-14.7 [facility] LhtdajhBJIPLTGULG7890-39-23 06:39:00 Test Item Value Reference Range Interpretation Comments INR (test code = INR) 0.98 1 0.85-1.17 [facility] DdzbopiAMVSMRPHEH2318-40-84 06:39:89656Tiomueep HermannHEMATOLOGY 2018-12-07 06:39:0014.3[facility] GpqzjopWYLXVFMRSJ8467-22-64 06:39:0033.4[facility] OilhihoRKAFZOUNXD2121-04-88 06:39:00 Test Item Value Reference Range Interpretation Comments MCH (test code = MCH) 29.8 pg 27.0-31.0 [facility] NizyevsNASRRYYGEQ1226-49-01 06:39:0089.0[facility] HermannHEMATOLOGY 2018-12-07 06:39:0037.5[facility] KapkkccVPERPAGKLO2887-71-94 06:39:004.21[facility] TlayvqcUZNDNNLSAP5988-51-14 06:39:0012.5[facility] HmwwsbcTKMGNJOPYK9546-61-01 06:39:0011.5[facility] LeafkjiFHMOLCTTXE5303-82-58 06:39:008.7[facility] NNAHBQRQMN9309-93-53 06:39:00 Test Item Value Reference Range Interpretation Comments PTT (test code = PTT) 29.9 s 22.9-35.8 [facility]annBLOOD BANK THKMGCP8565-80-48 06:39:00Negative (12/07/18 1:39 AM) [facility]annCARDIAC LZDAZNF7090-87-54 06:39:00<0.02[facility] UWSGKBNATWQZ1664-91-73 06:39:0011.3[facility] WsggvvwRRWNNYVTARTO4159-42-24 06:39:000.92[facility] AwjrkjeOGEAOUDTTNTR3363-34-47 06:39:74853Xvnbanop Hong VZBELCNILRPR0783-90-60 06:39:0021[facility] AigwwumXUMHCJOSWZKR8319-96-26 06:39:00 4.3[facility] VfhstyqDTRZNCUTKSZH1359-83-80 06:39:18175Gunbsrjj Hong ZCBOBUZCHXJP5836-26-05 06:39:0026[facility] YhxbmlvIVTVXSZTOUDV9830-89-97 06:39:00 9.1[facility] XorfmhyQVZMXEQTVHJY2302-07-06 06:39:0059[facility] HermannELECTROLYTES 2018-12-07 06:39:81806Rnifamcw JsessbfTYDTJAMTZY5493-05-20 06:39:0077.4[facility] MorvqvkXRKKCNMZKJ2857-46-21 06:39:0014.6[facility] FfytlmwLKOXHXOLPR4996-19-11 06:39:000.1[facility] ZajknnbMJAUSAHDYH8970-68-13 06:39:000.1[facility]annBLOOD BANK OWVLMTZ7017-50-38 06:39:00Negative (12/07/18 1:39 AM)[facility] [place] RAIDVKEGNN5436-65-62 06:39:000.7[facility] UabhrqoAGYXOLEOUC8055-53-98 06:39:001.3 [facility] FjavogcCKYGGBZWOB4467-28-73 06:39:006.0[facility]annHEMATOLOGY 2018-12-07 06:39:008.9[facility] EogvqglKJVMPRGXQR0984-56-47 06:39:000.7[facility] [place]
[2021-05-10 12:09] LABS: Absolute Lymphocytes (CBC) 1.4 K/uL (0.7-4.9); Hematocrit 36.8 % (36.0-45.0); Lymphocytes % 18.1 % (15.3-44.8); MPV 8.3 fL (7.6-11.3); Protime INR 1.08; RBC Red Blood Cell Count 4.74 M/uL (3.86-4.86)
[2021-05-10 12:26] LABS: ALT/SGPT 21 U/L (12-78); AST/SGOT 13 U/L (15-37); Albumin 3.3 g/dL (3.4-5.0); Alkaline Phosphatase 74 U/L (45-117); BUN Blood Urea Nitrogen 16 mg/dL (7-18); Bicarbonate 24 mmol/L (21-32); Bilirubin Direct < 0.1 mg/dL (0-0.2); Bilirubin Total 0.5 mg/dL (0.2-1.0); Glucose Level 109 mg/dL (74-106); Magnesium 2.6 mg/dL (1.8-2.4); NT PRO-BNP 143 pg/mL (<450); Potassium 4.3 mmol/L (3.5-5.1); Protein, Total 7.3 g/dL (6.4-8.2); Sodium Level 138 mmol/L (136-145); Troponin (Emerg Dept Use Only) < 0.02 ng/mL (0.0-0.045)
--- NOTE | 2021-05-10 12:30 | RAD REPORT ---
EXAM DESCRIPTION: RAD - Chest Single View - 05/10/2021 11:52 am CLINICAL HISTORY: CHEST PAIN COMPARISON: November 2019 TECHNIQUE: AP portable chest image was obtained 05/10/2021 11:52 am . FINDINGS: No peripheral mass or consolidation. No significant failure or volume overload. Interstiti al pattern is prominent but not clearly different from comparison when adjusting for technique differ ences. Baseline pattern could mask a mild interstitial edema or infiltrate. Heart and vasculature are normal. No measurable pleural effusion and no pneumothorax. No acute bony abnormality seen. No acute aortic findings suspected. IMPRESSION: No failure, volume overload or focal lung parenchymal process seen. Baseline interstitial prominence could mask early edema or infiltrate.
[2021-05-10 14:07] LABS: SARS-COV-2 RT PCR NEGATIVE (NEGATIVE)
--- NOTE | 2021-05-10 14:48 | ER ---
Nurse's Notes [facility] Name: Ina Carrillo Age: 81 yrs Sex: Female : 1940 Arrival Date: 05/10/2021 Time: 11:14 Bed 24 Private MD: Diagnosis: Chest pain, unspecified Presentation: 05/10 11:18 Chief complaint: Patient states: she has had upper chest pain that is outside her COPD ap3 normal chest pain, since Monday05/05/2021. Patient also reports headache and chills. Coronavirus screen: chills, cough unrelated to allergies, headache, Client presents with at least one sign or symptom that may indicate coronavirus-19. Standard/surgical mask placed on the client. Provider contacted for isolation considerations. Ebola Screen: No symptoms or risks identified at this time. Initial Sepsis Screen: Does the patient meet any 2 criteria? No. Patient's initial sepsis screen is negative. Does the patient have a suspected source of infection? No. Patient's initial sepsis screen is negative. Risk Assessment: Do you want to hurt yourself or someone else? Patient reports no desire to harm self or others. Onset of symptoms was May 05, 2021. 11:18 Method Of Arrival: Ambulatory ap3 11:21 Acuity: SARAH 3 ap3 Triage Assessment: 11:22 General: Appears in no apparent distress. comfortable, Behavior is calm, cooperative, ap3 appropriate for age. Pain: Complains of pain in chest Also complains of cough and congestion. Neuro: Level of Consciousness is awake, alert, obeys commands, Oriented to person, place, time, situation, Appropriate for age. Cardiovascular: Patient's skin is warm and dry. Respiratory: Airway is patent Respiratory effort is even, unlabored, Respiratory pattern is regular, symmetrical. Historical: - Allergies: 15:43 Sulfa (Sulfonamide Antibiotics); jh5 - PMHx: 15:43 COPD; Hypertension; Hypothyroidism; jh5 - PSHx: 15:43 Appendectomy; Cholecystectomy; Ligation of fallopian tube; Total abdominal hysterectomy;jh5 - Immunization history:: Client reports receiving the 2nd dose of the Covid vaccine, and booster. - Social history:: Smoking status: Patient denies any tobacco usage or history of. Screenin:42 Abuse screen: Denies threats or abuse. Denies injuries from another. Nutritional 5 screening: No deficits noted. Tuberculosis screening: No symptoms or risk factors identified. Fall Risk None identified. Assessment: 15:40 Reassessment: sister; Rocio [phone] Patient denies pain at this time. jh5 17:27 Reassessment: Spoke with 2ND floor RN; putting STAT clean in on room now so can be jh5 cleaned. Approx 30-40 min room should be ready. Vital Signs: 11:21 BP 146 / 52; Pulse 60; Resp 18; Temp 98.2(TE); Pulse Ox 99% on R/A; Weight 81.19 kg; ap3 Height 5 ft. 3 in. (160.02 cm); 18:27 BP 142 / 73; Pulse 64; Resp 18; Temp 98.7; Pulse Ox 99% ; jh5 11:21 Body Mass Index 31.71 (81.19 kg, 160.02 cm) ap3 ED Course: 11:14 Patient arrived in ED. ds1 11:22 Triage completed. ap3 11:25 Luanne Brandon FNP-C is PHCP. kb 11:25 Basil Munson MD is Attending Physician. kb 11:52 XRAY Chest (1 view) In Process Unspecified. EDMS 11:58 COVID-19/FLU A+B (Document "Date of Onset" if Symptomatic) Sent. ll1 11:58 CBC with Diff Sent. ll1 11:58 LFT's Sent. ll1 11:58 Magnesium Sent. ll1 11:58 NT PRO-BNP Sent. ll1 11:58 PT-INR Sent. ll1 12:22 Basic Metabolic Panel Sent. ll1 12:38 Nisha Kwon, RN is Primary Nurse. jh5 14:31 Primary Nurse role handed off by Nisha Kwon, RN 5 14:52 Omayra Pizarro MD is Hospitalizing Provider. kb 15:28 Nisha Kwon, RN is Primary Nurse. 5 15:42 No provider procedures requiring assistance completed. Inserted saline lock: 20 gauge [facility] in right antecubital area, using aseptic technique. 15:42 Arm band placed on right wrist. jh5 15:43 Patient has correct armband on for positive identification. Bed in low position. Call [facility] light in reach. Side rails up X 1. wall attendant on. Pulse ox on. NIBP on. Administered Medications: No medications were administered Outcome: 14:52 Decision to Hospitalize by Provider. kb 19:10 Patient left the ED. ll1 Signatures: Dispatcher [employer] EDMS Luanne Brandon, MIAN HUDDLESTONP-Bethany Cross ds1 Sami Bauer RN RN sr5 Batool Martinez RN RN ap3 Nurys Foote RN RN ll1 Nisha Kwon RN RN jh5
--- NOTE | 2021-05-10 14:48 | EDPHYS ---
Physician Documentation [facility] – [place], [place] Name: Ina Carrillo Age: 81 yrs Sex: Female : 1940 Arrival Date: 05/10/2021 Time: 11:14 Bed 24 Private MD: LAKISHA Physician Basil Munson HPI: 05/10 14:54 This 81 yrs old Female presents to ER via Ambulatory with complaints of Chest Pain. kb 14:54 The patient or guardian reports chest pain that is located primarily in the anterior kb chest wall. Onset: 2 day(s) ago. The pain does not radiate. Associated signs and symptoms: Pertinent positives: shortness of breath, fatigue. The chest pain is described as nagging. Duration: The patient or guardian reports a single episode, that is still ongoing. Modifying factors: The symptoms are alleviated by nothing. the symptoms are aggravated by nothing. Severity of pain: At its worst the pain was moderate in the emergency department the pain is unchanged. The patient has not experienced similar symptoms in the past. The patient has not recently seen a physician. Historical: - Allergies: 15:43 Sulfa (Sulfonamide Antibiotics); 5 - PMHx: 15:43 COPD; Hypertension; Hypothyroidism; jh5 - PSHx: 15:43 Appendectomy; Cholecystectomy; Ligation of fallopian tube; Total abdominal hysterectomy;5 - Immunization history:: Client reports receiving the 2nd dose of the Covid vaccine, and booster. - Social history:: Smoking status: Patient denies any tobacco usage or history of. ROS: 14:54 ENT: Negative for injury, pain, and discharge. kb 14:54 Constitutional: Positive for fatigue. 14:54 Cardiovascular: Positive for chest pain, Negative for edema, orthopnea, palpitations, paroxysmal nocturnal dyspnea. 14:54 Respiratory: Positive for dyspnea on exertion, shortness of breath, Negative for cough, hemoptysis, orthopnea, pleurisy, sputum production, wheezing. 14:54 All other systems are negative. Exam: 14:54 Constitutional: This is a well developed, well nourished patient who is awake, alert, kb and in no acute distress. Head/Face: Normocephalic, atraumatic. ENT: Moist Mucous membranes Cardiovascular: Regular rate and rhythm with a normal S1 and S2. No gallops, murmurs, or rubs. No pulse deficits. Respiratory: Respirations even and unlabored. No increased work of breathing. Talking in full sentences Skin: Warm, dry with normal turgor. Normal color. MS/ Extremity: Pulses equal, no cyanosis. Neurovascular intact. Full, normal range of motion. Neuro: Awake and alert, GCS 15, oriented to person, place, time, and situation. Moves all extremities. Normal gait. Psych: Awake, alert, with orientation to person, place and time. Behavior, mood, and affect are within normal limits. Vital Signs: 11:21 BP 146 / 52; Pulse 60; Resp 18; Temp 98.2(TE); Pulse Ox 99% on R/A; Weight 81.19 kg; ap3 Height 5 ft. 3 in. (160.02 cm); 18:27 BP 142 / 73; Pulse 64; Resp 18; Temp 98.7; Pulse Ox 99% ; jh5 11:21 Body Mass Index 31.71 (81.19 kg, 160.02 cm) ap3 MDM: 11:25 Patient medically screened. kb 14:41 Data reviewed: vital signs, nurses notes. Data interpreted: Pulse oximetry: on room air kb is 99 %. Interpretation: normal. Counseling: I had a detailed discussion with the patient and/or guardian regarding: the historical points, exam findings, and any diagnostic results supporting the discharge/admit diagnosis, lab results, radiology results, the need for further work-up and treatment in the hospital. 14:53 Physician consultation: Omayra Pizarro MD was contacted at 14:53, regarding admission, kb to the telemetry unit. patient's condition. 05/10 11:26 Order name: Basic Metabolic Panel kb 05/10 11:26 Order name: CBC with Diff; Complete Time: 12:11 kb 05/10 11:26 Order name: LFT's; Complete Time: 12: kb 05/10 11:26 Order name: Magnesium; Complete Time: 12: kb 05/10 11: Order name: NT PRO-BNP; Complete Time: 12: kb 05/10 11:26 Order name: PT-INR; Complete Time: 12:11 kb 05/10 11:26 Order name: Troponin (emerg Dept Use Only); Complete Time: 12: kb 05/10 11:26 Order name: XRAY Chest (1 view); Complete Time: 12:31 kb 05/10 11:26 Order name: COVID-19/FLU A+B (Document "Date of Onset" if Symptomatic); Complete Time: kb 14:20 05/10 11:26 Order name: Basic Metabolic Panel; Complete Time: 12:27 EDMS 05/10 15:01 Order name: Echo with Doppler EDMS 05/10 15:01 Order name: Troponin I EDMS 05/10 11:26 Order name: EKG; Complete Time: 11:27 kb 05/10 11:26 Order name: Cardiac monitoring; Complete Time: 11:58 kb 05/10 11:26 Order name: EKG - Nurse/Tech; Complete Time: 12:22 kb 05/10 11:26 Order name: IV Saline Lock; Complete Time: 11:58 kb 05/10 11:26 Order name: Labs collected and sent; Complete Time: 11:58 kb 05/10 11:26 Order name: O2 Per Protocol; Complete Time: 11:58 kb 05/10 11:26 Order name: O2 Sat Monitoring; Complete Time: 11:58 kb 05/10 15:01 Order name: CONS Physician Consult EDMS 05/10 15:01 Order name: Heart Healthy EDMS 05/10 15:01 Order name: EKG Electrocardiogram EDMS 05/10 15:01 Order name: EKG Electrocardiogram EDMS Administered Medications: No medications were administered Disposition: 05/11 13:00 Co-signature as Attending Physician, Basil ANDERSON I agree with the assessment and rogelio plan of care. Disposition Summary: 05/10/21 14:52 Hospitalization Ordered Hospitalization Status: Observation kb Provider: Omayra Pizarro Location: Telemetry/MedSurg (observation)(05/10/21 14:52) kb Condition: Stable(05/10/21 14:52) kb Problem: new(05/10/21 14:52) kb Symptoms: are unchanged(05/10/21 14:52) kb Bed/Room Type: Standard Room Assignment: 205(05/10/21 17:10) kb Diagnosis - Chest pain, unspecified(05/10/21 14:52) kb Forms: - Medication Reconciliation Form kb - SBAR form kb Signatures: Dispatcher [employer] EDMS Luanne Brandon FNP-C FNP-Basil Sorenson MD MD cha Prokisch, Amanda RN RN ap3 Nisha Kwon RN RN jh5 Corrections: (The following items were deleted from the chart) 05/10 13:55 13:52 Chest Pa And Lat (2 Views) ordered. EDMS EDMS 14: 14:47 Home kb kb 14:52 14:47 new kb kb 14:52 14:47 are unchanged kb kb 14:52 14:47 Stable kb kb 14: 14:47 Chest pain, unspecified kb kb 17:10 14:52 kb kb
[2021-05-10] MEDS ORDERED: ACETAMINOPHEN 500 MG TAB PO PRN (14:57)
[2021-05-10] MEDS ORDERED: MORPHINE 4 MG/ML SYR IV PRN (14:57)
--- NOTE | 2021-05-10 15:06 | P.HP ---
Certification for Inpatient Patient admitted to: Observation With expected LOS: <2 Midnights Patient will require the following post-hospital care: None Practitioner: I am a practitioner with admitting privileges, knowledge of patient current condition, hospital course, and medical plan of care. Services: Services provided to patient in accordance with Admission requirements found in Title 42 Section 412.3 of the Code of Federal Regulations Patient History Date of Service: 05/10/21 Reason for admission: CHEST PAIN RULE OUT ACUTE CORONARY SYNDROME History of Present Illness: Patient is an 81-year-old female who comes into the hospital with chest discomfort. Pain was mainly in the sternal region. Patient was short of breath. Patient denies diaphoresis. Patient has a history of hypertension. At this time, patient will be admitted to the hospital for further evaluation. Allergies Sulfa (Sulfonamide Antibiotics) Allergy (Verified 05/10/21 22:47) Nausea/Vomiting Home Medications: Cholecalciferol (Vitamin D3) [Vitamin D 1000 Iu Tab*] 1,000 unit PO DAILY 05/10/13 Cyanocobalamin (Vitamin B-12) [B-12] PO 05/10/13 Lactobacillus Acidophilus [Probiotic] 1 each PO DAILY 05/10/13 Levothyroxine [Synthroid*] 25 mcg PO [id number] 05/10/13 Metoclopramide [Reglan*] 5 mg PO BID 05/10/13 Omeprazole Magnesium [Prilosec Otc] 20 mg PO BID PRN 05/10/13 Rosuvastatin [Crestor*] 10 mg PO DAILY 05/10/13 Sucralfate [Carafate] 1 gm PO BID 05/10/13 Venlafaxine HCl [Effexor*] 75 mg PO DAILY 05/10/13 Aspirin Tab [Marlo Aspirin*] 325 mg PO DAILY WITH BREAKFAST #30 tab 05/11/13 Metoprolol Tartrate [Lopressor*] 25 mg PO BID #60 tab 05/11/13 Albuterol Sulfate [Proair Hfa] 2 puff IH TID PRN #1 hfa.aer.ad 11/21/19 Fluticasone/Umeclidin/Vilanter [Trelegy Ellipta 100-62.5-25] 1 each IH DAILY #1 blst.w.dev 11/21/19 Cetirizine HCl [Zyrtec*] 5 mg PO DAILY PRN #30 tablet 05/11/21 predniSONE [Prednisone*] 20 mg PO DAILY #5 tab 05/11/21 - Past Medical/Surgical History Diabetic: No -: Hypothyroidism -: Hiatal Hernia -: Bladder suspensions -: Appendectomy -: Hysterectomy -: Cholecystectomy -: Tubal ligation -: Facelift -: Eyebrow lift -: breast augmentation - Family History Father Family History: Reviewed- Non-Contributory - Social History Smoking Status: Former smoker Alcohol use: No CD- Drugs: No Caffeine use: No Review of Systems 10-point ROS is otherwise unremarkable Physical Examination - Vital Signs Temperature: 98 F Blood Pressure: 140/80 Pulse: 80 Respirations: 18 Pulse Ox (%): 95 - Physical Exam General: Alert, In no apparent distress, Oriented x3 HEENT: Atraumatic, PERRLA, Mucous membr. moist/pink, EOMI, Sclerae nonicteric Neck: Supple, 2+ carotid pulse no bruit, No LAD, Without JVD or thyroid abnormality Respiratory: Clear to auscultation bilaterally, Normal air movement Cardiovascular: Regular rate/rhythm, Normal S1 S2, No murmurs Gastrointestinal: Normal bowel sounds, Soft and benign, Non-distended, No tenderness Musculoskeletal: No clubbing, No swelling, No tenderness Integumentary: No rashes Neurological: Normal gait, Normal speech, Normal strength at 5/5 x4 extr, Normal tone, Sensation intact, Cranial nerves 3-12 intact, Normal affect Lymphatics: No axilla or inguinal lymphadenopathy - Studies Laboratory Data (last 24 hrs) 05/10/21 11:55: PT 12.4, INR 1.08 05/10/21 11:55: WBC 7.50, Hgb 11.9 L, Hct 36.8, Plt Count 313 05/10/21 11:55: Sodium 138, Potassium 4.3, BUN 16, Creatinine 0.80, Glucose 109 H, Magnesium 2.6 H, Total Bilirubin 0.5, AST 13 L, ALT 21, Alkaline Phosphatase 74 Assessment & Plan - Problems (Diagnosis) (1) Chest pain, rule out acute myocardial infarction Status: Acute - Plan 1. Serial troponins and EKG 2. Appreciate Cardiology consultation 3. Echocardiogram and stress test if cardiology is agreeable 4. Anti-platelet therapy, anti coagulation, beta-shanta, statin, and O2 as needed 5. IV morphine for pain 6. Nitro p.r.n. Discharge Plan: Home Plan to discharge in: Greater than 2 days - Advance Directives Does patient have a Living Will: No Does patient have a Durable POA for Healthcare: No - Code Status/Comfort Care Code Status Assessed: Yes Code Status: Full Code Critical Care: No Time Spent Managing PTS Care (In Minutes): 45
[2021-05-10] MEDS ORDERED: ALPRAZOLAM 0.25 MG TABLET PO PRN (15:14)
[2021-05-10] MEDS: ENOXAPARIN 40 MG/0.4 ML SQ SCH (16:00)
[2021-05-10 19:16] VITALS: O2SAT 99
[2021-05-10] MEDS ORDERED: CETIRIZINE HCL 5 MG TABLET PO PRN (22:33)
[2021-05-10] MEDS: METOPROLOL TAR 25 MG TAB PO SCH (22:35)
[2021-05-11 01:24] VITALS: BMI 31.6
[2021-05-11 06:12] LABS: Absolute Lymphocytes (CBC) 1.3 K/uL (0.7-4.9); Hematocrit 36.5 % (36.0-45.0); Lymphocytes % 20.3 % (15.3-44.8); MPV 8.5 fL (7.6-11.3); RBC Red Blood Cell Count 4.59 M/uL (3.86-4.86)
[2021-05-11 06:23] LABS: BUN Blood Urea Nitrogen 18 mg/dL (7-18); Bicarbonate 22 mmol/L (21-32); Glucose Level 107 mg/dL (74-106); Potassium 4.2 mmol/L (3.5-5.1); Sodium Level 137 mmol/L (136-145)
[2021-05-11 06:27] LABS: HDL Cholesterol 47 mg/dL (40-60); LDL Cholesterol, Calculated 52 (<130); Troponin I < 0.02 ng/mL (0.0-0.045)
[2021-05-11] MEDS: ENOXAPARIN 40 MG/0.4 ML SQ SCH (08:52)
[2021-05-11] MEDS: METOPROLOL TAR 25 MG TAB PO SCH (08:52)
[2021-05-11] MEDS ORDERED: ASPIRIN EC 81 MG TAB PO SCH (09:00)
[2021-05-11] MEDS ORDERED: METHYLPREDNISOLONE 125 MG INJ IV ONE (14:46)
--- NOTE | 2021-05-11 17:25 | CON ---
Date of Consultation: 05/11/2021 Reason For Consultation: Chest pain. History Of Present Illness: An 81-year-old female, history of hypothyroidism, hiatal hernia, hyperte nsion, COPD, presented with chest pain, pressure-like, retrosternal, related mainly to activities and gets better and resolves with rest. This has been happening for some time. Patient has not taken a spirin. Since she has been admitted, she has been chest pain free as long as she is resting. Past Medical History: As outlined above in the HPI. Medications: Refer reconciliation sheet for detailed list. Allergies: SULFA. Family History: No premature coronary artery disease or cancer. Social History: She does not smoke or drink. Does not use any drugs. Review of Systems: All systems reviewed and negative except mentioned in HPI. Physical Examination: Vital signs: Reviewed. Head and Neck: Pupils are equal, reactive to light. Intact eye movements. No JVD. No cervical lym phadenopathy. Neck: Supple. Thyroid is not enlarged. Lungs: Clear to auscultation bilaterally. No rhonchi, wheezing, crackles. No accessory muscle use. Heart: Regular rate and rhythm. No extra sounds. Abdomen: Soft, nontender. Bowel sounds positive. No organomegaly. No masses or hernia. No rigidi ty or rebound. Extremities: No edema, clubbing, or cyanosis. Intact pulses. Skin: No rashes. Neurologic: Alert, awake, oriented x3. No acute focal deficits appreciated. Investigations: Hemoglobin 11.7. Creatinine is 0.8. Troponin x3 are negative. Her LDL cholesterol is 52. Assessment/recommendations: Chest pain. Has some typical features, but for the most part, it is aty pical. Cardiac enzymes are negative. Given the fact that she has been stable and has stable symptom s from Cardiology standpoint, I am okay with the patient being discharged and we will arrange for her to have exercise stress test early next week and asked her to start taking baby aspirin 81 mg daily. Thank you for the consult. /JESSIE Voice ID: [id number] Report ID: [id number]
--- NOTE | 2021-05-12 07:28 | ECHO ---
HEIGHT: 5 ft 3 in WEIGHT: 179 lb 0 oz DATE OF STUDY: 05/11/[address]: Omayra Pizarro MD 2-DIMENSIONAL: YES M.MODE: YES DOPPLER: YES COLOR FLOW: YES TDS: NO PORTABLE: NO DEFINITY: NO BUBBLE STUDY: NO DIAGNOSIS: CONGESTIVE HEART FAILURE CARDIAC HISTORY: CATHERIZATION: SURGERY: PROSTHETIC VALVE: PACEMAKER: MEASUREMENTS (cm) DIASTOLIC (NORMALS) SYSTOLIC (NORMALS) IVSd 1.2 (0.6-1.2) LA Diam 3.5 (1.9-4.0) LVEF 59% LVIDd 3.5 (3.5-5.7) LVIDs 2.4 (2.0-3.5) %FS 30% LVPWd 1.1 (0.6-1.2) Ao Diam 2.9 (2.0-3.7) 2 DIMENSIONAL ASSESSMENT: RIGHT ATRIUM: NORMAL LEFT ATRIUM: NORMAL RIGHT VENTRICLE: NORMAL LEFT VENTRICLE: NORMAL TRICUSPID VALVE: MITRAL VALVE: PULMONIC VALVE: NORMAL AORTIC VALVE: NORMAL PERICARDIAL EFFUSION: NONE AORTIC ROOT: NORMAL LEFT VENTRICULAR WALL MOTION: NORMAL DOPPLER/COLOR FLOW: SEE BELOW COMMENTS: NORMAL LEFT VENTRICULAR EJECTION FRACTION 55-60%. NORMAL WALL MOTION. MILD MITRAL AND TRICUSPID REGURGITATION. MODERATE DIASTOLIC DYSFUNCTION. TECHNOLOGIST: Cecilia FLORES
[2021-05-17 00:43] VITALS: BP 140/80; TEMP 98
--- NOTE | 2021-05-17 00:44 | P.DS ---
Discharge Date: 05/11/21 Disposition: ROUTINE DISCHARGE Discharge Condition: GOOD Reason for Admission: CHEST PAIN RULE OUT ACUTE CORONARY SYNDROME - Problems (1) Chest pain, rule out acute myocardial infarction Status: Acute Brief History of Present Illness: Patient is an 81-year-old female who comes into the hospital with chest discomfort. Pain was mainly in the sternal region. Patient was short of breath. Patient denies diaphoresis. Patient has a history of hypertension. At this time, patient will be admitted to the hospital for further evaluation. Hospital Course: Patient troponins were negative. Patient's chest pain was ruled out. At this time, patient is stable for discharge for outpatient follow with Cardiology. Vital Signs/Physical Exam: Temp Pulse Resp BP Pulse Ox 98 F 80 18 140/80 95 05/17/21 00:42 05/17/21 00:42 05/17/21 00:42 05/17/21 00:42 05/17/21 00:42 General: Alert, In no apparent distress, Oriented x3 Laboratory Data at Discharge: WBC 6.60 K/uL (4.3-10.9) 05/11/21 05:51 Hgb 11.7 g/dL (12.0-15.0) L 05/11/21 05:51 Hct 36.5 % (36.0-45.0) 05/11/21 05:51 Plt Count 309 K/uL (152-406) 05/11/21 05:51 PT 12.4 SECONDS (9.5-12.5) 05/10/21 11:55 INR 1.08 05/10/21 11:55 Sodium 137 mmol/L (136-145) 05/11/21 05:51 Potassium 4.2 mmol/L (3.5-5.1) 05/11/21 05:51 BUN 18 mg/dL (7-18) 05/11/21 05:51 Creatinine 0.80 mg/dL (0.55-1.3) 05/11/21 05:51 Glucose 107 mg/dL (74-106) H 05/11/21 05:51 Magnesium 2.6 mg/dL (1.8-2.4) H 05/10/21 11:55 Total Bilirubin 0.5 mg/dL (0.2-1.0) 05/10/21 11:55 AST 13 U/L (15-37) L 05/10/21 11:55 ALT 21 U/L (12-78) 05/10/21 11:55 Alkaline Phosphatase 74 U/L (45-117) 05/10/21 11:55 Troponin I < 0.02 ng/mL (0.0-0.045) 05/11/21 05:51 Triglycerides Cancelled 05/11/21 06:00 Cholesterol Cancelled 05/11/21 06:00 HDL Cholesterol Cancelled 05/11/21 06:00 Cholesterol/HDL Ratio Cancelled 05/11/21 06:00 Home Medications: Cholecalciferol (Vitamin D3) [Vitamin D 1000 Iu Tab*] 1,000 unit PO DAILY 05/10/13 Cyanocobalamin (Vitamin B-12) [B-12] PO 05/10/13 Lactobacillus Acidophilus [Probiotic] 1 each PO DAILY 05/10/13 Levothyroxine [Synthroid*] 25 mcg PO [id number] 05/10/13 Metoclopramide [Reglan*] 5 mg PO BID 05/10/13 Omeprazole Magnesium [Prilosec Otc] 20 mg PO BID PRN 05/10/13 Rosuvastatin [Crestor*] 10 mg PO DAILY 05/10/13 Sucralfate [Carafate] 1 gm PO BID 05/10/13 Venlafaxine HCl [Effexor*] 75 mg PO DAILY 05/10/13 Aspirin Tab [Marlo Aspirin*] 325 mg PO DAILY WITH BREAKFAST #30 tab 05/11/13 Metoprolol Tartrate [Lopressor*] 25 mg PO BID #60 tab 05/11/13 Albuterol Sulfate [Proair Hfa] 2 puff IH TID PRN #1 hfa.aer.ad 11/21/19 Fluticasone/Umeclidin/Vilanter [Trelegy Ellipta 100-62.5-25] 1 each IH DAILY #1 blst.w.dev 11/21/19 Cetirizine HCl [Zyrtec*] 5 mg PO DAILY PRN #30 tablet 05/11/21 predniSONE [Prednisone*] 20 mg PO DAILY #5 tab 05/11/21 New Medications: predniSONE [Prednisone*] 20 mg PO DAILY #5 tab Cetirizine HCl [Zyrtec*] 5 mg PO DAILY PRN #30 tablet PRN Reason: Allergies Physician Discharge Instructions: OK TO DC IV AND DC HOME FOLLOW-UP WITH PRIMARY CARE PROVIDER IN 1-2 WEEKS FOLLOW-UP WITH NEPHROLOGY IN 1-2 WEEKS RETURN TO THE ER IF symptoms worsens CALL or TEXT DR. SCHNEIDER AT [phone] IF ANY QUESTIONS REGARDING HOSPITAL STAY. PLEASE CALL THE FLOOR AT [phone] IF ANY MEDICATION OR NURSING QUESTIONS. Diet: AHA Activity: Fall precautions Followup: OOT,OOT [Primary Care Provider] - Time spent managing pt's care (in minutes): 35
== END 2021-05-11 18:15 | disposition home or self-care (01) ==
LOC: ER 11:13 → ERHOLD 15:21 → 2ND 18:58
PROVIDERS: ADMIT Hospitalist; ATTEND Hospitalist
DX: R07.9 Chest pain, unspecified (principal); I10 Essential (primary) hypertension; E03.9 Hypothyroidism, unspecified; J44.9 Chronic obstructive pulmonary disease, unspecified; K44.9 Diaphragmatic hernia without obstruction or gangrene; Z87.891 Personal history of nicotine dependence; Z79.899 Other long term (current) drug therapy; Z88.2 Allergy status to sulfonamides; Z90.49 Acquired absence of other specified parts of digestive tract; Z90.710 Acquired absence of both cervix and uterus; Z20.822 Contact with and (suspected) exposure to COVID-19
CPT/HCPCS: 93005 ×2; 93306; 85025 ×2; 80048 ×2; 36415; 83735; 85610; 80061; 80076; 84484 ×3; 83880; 0240U; 71045; 99284; J2930; G0378 ×3; J1650

== ENCOUNTER 2022-01-04 07:30 | Day surgery (SDC) | payer OTHER ==
[2021-12-31 11:14] LABS: Absolute Lymphocytes (CBC) 1.7 K/uL (0.7-4.9); Lymphocytes % 22.3 % (15.3-44.8); MCV 81.5 fL (80-100); MPV 8.7 fL (7.6-11.3); RBC Red Blood Cell Count 4.42 M/uL (3.86-4.86)
[2021-12-31 11:26] LABS: Protime INR 1.04
[2021-12-31 11:29] LABS: Potassium 3.8 mmol/L (3.5-5.1)
[~2022-01-04 07:30] MED LIST: ATROPINE SULF 1 MG/10 ML SYR IV ONE; FENTANYL CITR 100 MCG/2 ML ONE; HEPA 1000U/500MLS 2,000 UNIT/1,000 ML BAG IV ONE; MIDAZOLAM HCL 2 MG/2 ML INJ ONE; NA CHLORIDE 0.9% 0 ML IV ONE
[2022-01-04] MEDS ORDERED: NA CHLORIDE 0.9% 500 ML ONE (07:51)
[2022-01-04 10:23] VITALS: O2SAT 95
[2022-01-04 10:38] VITALS: BP 130/51
--- NOTE | 2022-01-04 11:33 | OP ---
Surgeon: Lino Kim MD Shuttle Final Inspector: Ms. Shiela Nelson. Plan is for the patient to go home in 2 hours after bedrest and I will see her in the office in 2 wee ks. No change in medical therapy for now. 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 Indication: SVT, chest pain, positive stress test at [facility]. Procedure In Detail: In the [employer], she was prepped and draped in routine sterile fashion. Given Versed and fentanyl for sedation. A 6-Maltese sheath introduced in the right common femoral artery us ing Seldinger technique and 10 cc of Xylocaine. Angiography there was normal. StarClose was used to close the case. Malka catheters left and right were used to cannulate the left main and right gonzales n respectively. The RCA was normal, was dominant. The left main was normal. Circumflex was normal. There was a 30% mid LAD stenosis, moderate plaquing, and a very small ramus. There were no complic ations. Blood loss was 5 cc. The patient tolerated the procedure well. Postoperative Diagnosis: Mild coronary artery disease. Plan: To continue medical therapy. Anesthesia: Total conscious sedation 30 minutes. NB/MODL Voice ID: [id number] Report ID: [id number]
== END 2022-01-04 10:50 | disposition home or self-care (01) ==
LOC: CCL 07:30
DX: I25.110 Atherosclerotic heart disease of native coronary artery with unstable angina pectoris (principal); I11.0 Hypertensive heart disease with heart failure; I50.32 Chronic diastolic (congestive) heart failure; I47.1 Supraventricular tachycardia; G45.9 Transient cerebral ischemic attack, unspecified; I65.23 Occlusion and stenosis of bilateral carotid arteries; E78.2 Mixed hyperlipidemia; J44.1 Chronic obstructive pulmonary disease with (acute) exacerbation; Z79.82 Long term (current) use of aspirin; Z79.899 Other long term (current) drug therapy; Z88.2 Allergy status to sulfonamides
CPT/HCPCS: 36415; 80048; 85025; 85610; 85730; 93454; C1893; J0583; J1644; J2250; J3010; J7040; Q9966